=== PATIENT | male | born 1965 | race Caucasian/White ===

== ENCOUNTER 2017-02-13 15:52 | Inpatient (IN) | payer OTHER ==
--- NOTE | ~2017-02-13 | HP ---
History And Physical [id number] [place]. [address] NAME: YONATHAN SPEARS : 63 STATUS : ADM IN [facility]#: [id number] AGE: 51 ADM/REG DATE : 02/13/17 MR#: [id number] REPORT SERV DATE: 02/13/17 DICTATED BY: ESPINOZA MCKEON DATE: 02/13/17 REPORT STATUS : Draft TRANSCRIBED BY: MODMarco DATE: 02/13/17 DATE OF ADMISSION: 02/13/2017 HISTORY OF PRESENT ILLNESS: Mr. Spears is a 51-year-old male patient who is coming in as a direct admit from Dr. Gilbert's office. Dr. Gilbert is a tar processing technician who saw the patient today for infected left foot and the reason that the patient is being admitted is for left foot cellulitis and left forefoot osteomyelitis. The patient was examined at bedside and history was obtained from the patient himself. He tells me that the left foot has been this badly infected for the last one week. It has been swollen, red, and painful and has been discharging foul-smelling pus for the last one week and has been gradually getting worse. He states that he is also getting short winded easily for the last one week also. He feels tired and all he has to do is just take a few steps and he gets out of breath, and this has been progressively getting worse in the last one week. He states that he did have a fever and this has responded to Tylenol. He denies any headaches, blurry vision, trouble swallowing, chest pain, cough, nausea, vomiting, or abdominal pain that is significant. The patient denies any diarrhea. The patient denies any dysuria, but does say that his urine has been really dark and almost tea-colored this morning when he urinated. He has no history of kidney stones. REVIEW OF SYSTEMS: As above. PAST MEDICAL HISTORY: Significant for insulin-requiring diabetes mellitus and GERD. Also positive for on and off cellulitis in the left foot. Also positive for surgery in the left leg for which he has had tibia and fibula fixed. The patient has had fractured left tibia and fibula and has rods in his left leg that he mentions. PAST SURGICAL HISTORY: As above. FAMILY HISTORY: Positive for diabetes in father. SOCIAL HISTORY: The patient states that he does not smoke anymore, but he used to be a smoker before, he has quit several years ago. He denies any significant alcohol use. He denies any illegal drug use. 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 ALLERGIES: NO KNOWN DRUG ALLERGIES AT THIS TIME. HOME MEDICATIONS: 1. He only states that he takes Levemir insulin 20 units once a day and sliding scale History And Physical [address] [address] NAME: YONATHAN SPEARS : 63 STATUS : ADM IN PAT#: [id number] AGE: 51 ADM/REG DATE : 02/13/17 MR#: [id number] REPORT SERV DATE: 02/13/17 DICTATED BY: ESPINOZA MCKEON DATE: 02/13/17 REPORT STATUS : Draft TRANSCRIBED BY: MUSTAPHA DATE: 02/13/17 NovoLog insulin. 2. He also takes tswm-kkn-nlipxid Zantac for GERD p.r.n. PHYSICAL EXAMINATION: GENERAL: The patient is alert, awake, oriented, and seems to be in significant amount of pain in the left foot. Skin and mucous membranes appear slightly dry. He is short of breath even with minimal exertion. He appears somewhat toxic. VITAL SIGNS: Show that his blood pressure is 144/92, temperature mildly elevated at 99 degree Fahrenheit, pulse is 121 per minute, respirations 20 per minute, and oxygen saturation is 96% on room air. NECK: There is no JVD or thyromegaly. FACE: There is no facial droop or facial asymmetry. CARDIOVASCULAR SYSTEM: S1 and S2 appreciated. Sinus rhythm. Tachycardia noted. I could not appreciate any murmurs, rubs, or gallops. RESPIRATORY SYSTEM: Clear lungs, but tachypnea noted. I could not appreciate any rales or rhonchi. The patient seems mildly anxious. ABDOMEN: Soft, nontender, and obese. No definitive tenderness or guarding noted. Bowel sounds are sluggish, but noted. EXTREMITIES: There is bilateral 1+ pedal edema. The left foot is definitely more swollen than the right foot and the affected foot is the left foot compared to the right foot. First of all, the right foot also has stage II DFU or basically a pressure callus on the ball of the big toe on the right foot also. But the left foot is significantly swollen, warm, red all the way up to the ankle. All toes appear pink also. Pedal pulses are diminished. There is foul-smelling discharge between the left fourth and the left fifth toe. The left foot is also very tender to touch. NEUROLOGICAL: Normal. MUSCULOSKELETAL: The patient has had surgery on his left leg with laurent in the left leg for old left tibia and fibula fracture. PSYCHIATRIC: Normal. LABORATORY DATA: The labs I have on this patient show WBC count elevated at 18.9, hemoglobin 13.3, hematocrit 39.1, sedimentation rate is elevated at 95, and platelet count is 487, probably reactive. Comprehensive metabolic profile shows sodium 132, potassium 4.3, BUN 19, and creatinine 1.06. C-reactive protein is extremely elevated at 227 and alkaline phosphatase is 119. Left foot x-ray shows cellulitis with soft tissue gas throughout the second and fifth digits and also probably osteomyelitis involving the head of the fourth metatarsal. Urinalysis also shows abdi-colored urine and rare bacteria. Glucose is also elevated at 281. ASSESSMENT: 1. My assessment in this patient is sepsis secondary to severe cellulitis of the left foot along with osteomyelitis. For this, start the patient immediately on IV Zosyn and History And Physical [address] [address] NAME: YONATHAN SPEARS : 63 STATUS : ADM IN [facility]#: [id number] AGE: 51 ADM/REG DATE : 02/13/17 MR#: [id number] REPORT SERV DATE: 02/13/17 DICTATED BY: ESPINOZA MCKEON DATE: 02/13/17 REPORT STATUS : Draft TRANSCRIBED BY: MODL DATE: 02/13/17 vancomycin after consulting with ID specialist, Dr. Hansen. This will cover gram negatives, anaerobes, and also cover gram positives. 2. Achieve pain control by giving Percocet to the patient on a scheduled basis. 3. Obtain bilateral arterial Dopplers to assess circulation to the legs. The patient definitely needs incision and drainage and debridement and possibly even left forefoot amputation as soon as possible as he is appearing toxic/septic, hence, we will get Podiatry same-day consult. 4. Uncontrolled diabetes mellitus - we will check an A1c and we will start him on sliding scale level 3 insulin. We will start him on 1800-calorie ADA diet. We will keep a hold on the long-acting insulin as of now. 5. We will also obtain blood cultures x2, the wound culture has already been sent off before starting the antibiotics. 6. We will also check a procalcitonin level and lactate level. We will give supportive and symptomatic care to the patient and follow along with ID specialist and tar processing technician. RRA/MODL Espinoza Mckeon M.D. / [id number] CC: Tiny Holloway DAYLE C
--- NOTE | ~2017-02-13 | IDS ---
Interim Discharge Summary [facility] [address] [facility] [place]. [address] NAME: YONATHAN SPEARS : 63 STATUS : ADM IN PAT#: [id number] AGE: 51 ADM/REG DATE : 02/13/17 MR#: [id number] REPORT SERV DATE: 03/23/17 DICTATED BY: HUNTER HERNANDEZ DATE: 03/23/17 REPORT STATUS : Draft TRANSCRIBED BY: MODL DATE: 03/23/17 ADMISSION DATE: 02/13/2017 DISCHARGE DATE: Days of service provided personally by me from 03/17/2017 to 03/23/2017. Please refer also to the history of present illness dictated by Dr. Reena Solorio on 02/13/2017. Please also refer to interim discharge summary dictated by Dr. Manriquez on 03/15/2017. The patient had long hospitalization and I saw the patient only last week starting 03/17/2017 before the patient was seen by hospitalist team, Dr. Solorio and Dr. Manriquez. The patient is still inpatient. CURRENT MEDICAL PROBLEMS: 1. Status post left below-knee amputation day #5 for leg osteomyelitis as well as severe peripheral vascular disease, surgery done by Dr. Juarez. 2. Diabetes mellitus type 2, still not eating enough after surgery with hypoglycemic episodes. Currently, his Levemir is on hold. Before surgery, he required at least 40 units of Levemir, but now because of hypoglycemia, he is only on sliding scale. 3. Acute kidney injury on chronic kidney disease. The patient's creatinine is stable. No dialysis anymore. Nephrology following. 4. Ischemic cardiomyopathy with ejection fraction of 30%, compensated. 5. Status post CABG postoperative day #[address] Surgery, Dr. Salinas. 6. Hypomagnesemia, controlled. 7. Peripheral vascular disease, stable, status post amputation. 8. Postoperative pain, still present. 9. Anticoagulation with Coumadin, INR therapeutic. 10.History of atrial fibrillation, currently in normal sinus rhythm. CONSULTANTS ON THE CASE: 1. Dr. Juarez of Vascular Surgery. 2. Nurse practitioner of Dr. aSlinas. 3. Floyd Dawkins of CT Surgery. 4. Quantitative Analyst Marketing, Dr. Huerta was following. HOSPITAL COURSE: Briefly, for the week that I saw the patient, the patient was doing well. He was very stable. He did not need hemodialysis anymore. Quantitative Analyst Marketing said that his creatinine stays stable. Dr. Huerta put him on Bumex and his creatinine this week was 2.7 and 2.8 and today 2.83. His PermCath is supposed to be discontinued. Because the patient was very stable, it was recommended by web production assistant that Dr. Juarez can go and do second part of the amputation and he had below-knee amputation on his left lower extremity. He is currently postoperatively day #2. He is stable, but because of the pain, he is still using Dilaudid and he is not able to eat much, so his blood sugar was in 80s, and yesterday, it was in 70s, so his long-acting insulin Levemir was discontinued. He is currently on NovoLog sliding scale, but once the patient will start eating, his Levemir Interim Discharge Summary [address] [address] NAME: YONATHAN SPEARS : 63 STATUS : ADM IN [facility]#: [id number] AGE: 51 ADM/REG DATE : 02/13/17 MR#: [id number] REPORT SERV DATE: 03/23/17 DICTATED BY: HUNTER HERNANDEZ DATE: 03/23/17 REPORT STATUS : Draft TRANSCRIBED BY: MUSTAPHA DATE: 03/23/17 should be restarted because before surgery he was on at least 40 units of Levemir. His INR is therapeutic. We expect him to eat better. Anemia, monitor hemoglobin and hematocrit. Also, his white count postsurgically yesterday was 11,000 and today is 12,000, but there is no fever, white count to be monitored. He is currently on Cordarone 200 mg daily, baby aspirin 81 mg daily, Lipitor 40 mg daily, Bumex 2 mg p.o. daily prescribed by coal hiker, PhosLo 667 p.o. with meals, Coreg 6.25 p.o. b.i.d., magnesium oxide 800 b.i.d. for hypomagnesemia. He is on Coumadin, sliding scale, and morphine DIRECTOR OF RADIO SERVICES. My partner will see this patient starting tomorrow morning. Levemir to be restarted once the patient will start eating. MG/MODL Hunter Hernandez M.D. / [id number] CC: Tiny Sapp DAYLE C Daniel Fisher Jr., M.D. Wilson M. Clements, MD Vinay Deep Madan, MD
--- NOTE | ~2017-02-13 | CN ---
Consultation Report [facility] [address] [place]. [address] NAME: YONATHAN SPEARS : 63 STATUS : ADM IN [facility]#: [id number] AGE: 51 ADM/REG DATE : 02/13/17 MR#: [id number] REPORT SERV DATE: 02/15/17 DICTATED BY: MAINOR BOLAND DATE: 02/15/17 REPORT STATUS : Draft TRANSCRIBED BY: MODL DATE: 02/15/17 NEPHROLOGY CONSULTATION DATE OF CONSULTATION: 02/15/2017 INDICATION FOR CONSULTATION: Acute kidney injury. HISTORY OF PRESENT ILLNESS: Mr. Spears is a 51-year-old man who is seen for acute kidney injury following admission for left foot osteomyelitis. The foot infection was quite severe and he has required fourth and fifth digit amputation. In addition, he developed shortness of breath with elevated troponin and elevated BNP. He was subsequently initiated on diuretics and lisinopril. He has had no hypotension. His serum creatinine deric from 1.06 on 02/13/2017 to 1.27 on 02/14/2017 to 2.53 on 02/15/2017. He denies any voiding problems. PAST MEDICAL HISTORY: Remote left tibial and fibula fracture with rodding, type 2 diabetes mellitus, gastroesophageal reflux disease. SOCIAL HISTORY: The patient is . No children. Works as a construction executive. Remote tobacco use with no cigarette smoking in the last year and a half and prior 20 pack year smoking history. Currently was using snuff. No significant alcohol and no illicit drug use. FAMILY HISTORY: Father with history of hypertension, heart disease, diabetes with aspiration pneumonia and required dialysis just prior to his . Mother has underlying diabetes and breast cancer. HOME MEDICATIONS: P.r.n. Zantac and Levemir insulin. ALLERGIES: NONE KNOWN. REVIEW OF SYSTEMS: HEENT: No change in visual acuity. No epistaxis. No otic infection. No pharyngitis. PULMONARY: Notes some recent shortness of breath. No cough. No hemoptysis. CARDIAC: Denies chest pain, has noted lower extremity edema primarily in left lower extremity. GI: No nausea, vomiting, or diarrhea. : No gross hematuria, dysuria, pyuria. Denies urinary hesitation. MUSCULOSKELETAL: Occasional left lower extremity pain. INTEGUMENT: Some redness left lower extremity. No rash. No skin lesions. NEUROLOGIC: No lateralizing weakness or seizure activity. Remainder of 12-point review of systems is negative. PHYSICAL EXAMINATION: Consultation Report [address] [place]. [address] NAME: YONATHAN SPEARS : 63 STATUS : ADM IN PAT#: [id number] AGE: 51 ADM/REG DATE : 02/13/17 MR#: [id number] REPORT SERV DATE: 02/15/17 DICTATED BY: MAINOR BOLAND DATE: 02/15/17 REPORT STATUS : Draft TRANSCRIBED BY: MUSTAPHA DATE: 02/15/17 GENERAL: Obese male, pleasant, appropriately responsive. VITAL SIGNS: Blood pressure 94/55, temp 99.2 with T-max of 100.7, pulse 88, respiratory rate 16. HEENT: Eyes, no scleral icterus. Pupils equal and reactive to light. Extraocular movement intact. Nares patent. No lesions. Throat, no injection. Mucous membranes moist. NECK: No thyromegaly, masses, bruits. CHEST/LUNGS: Few late crackles posteriorly. No wheezes. No rhonchi. No dullness. CARDIAC: Regular rate and rhythm. No murmur, gallop, or rub. ABDOMEN: Obese. Normoactive bowel sounds. Nontender. No hepatosplenomegaly. /RECTAL: Not performed. EXTREMITIES: Erythema left lower extremity. Trace edema. Left foot is wrapped with obvious amputation fourth and fifth digit from left foot. NEUROLOGIC: Cranial nerves intact. No lateralizing weakness. IMPRESSION: 1. Acute kidney injury likely secondary to sepsis/infection. Possibly complicated by prerenal state. Doubt significant contribution from minimal dose of lisinopril. 2. Left foot osteomyelitis. 3. Status post amputation fourth and fifth digit, left foot. 4. Peripheral vascular disease. 5. Remote left tibial-fibula fracture with rodding. 6. Type 2 diabetes mellitus. 7. Gastroesophageal reflux disease. 8. Acute systolic congestive heart failure with ejection fraction of 30%. 9. Elevated troponin possibly non-ST elevation myocardial infarction versus demand ischemia. PLAN: 1. Discontinue lisinopril. 2. Discontinue Aldactone. 3. Renal Doppler and ultrasound. 4. Lab. 5. Adjust diuretics. RAUL/DAMONL Mainor Boland M.D. / [id number] CC: Reena Solorio M.D. Consultation Report [address] [facility] [address] NAME: YONATHAN SPEARS : 63 STATUS : ADM IN PAT#: [id number] AGE: 51 ADM/REG DATE : 02/13/17 MR#: [id number] REPORT SERV DATE: 02/15/17 DICTATED BY: MAINOR BOLAND DATE: 02/15/17 REPORT STATUS : Draft TRANSCRIBED BY: MODL DATE: 02/15/17 Bill Short
--- NOTE | ~2017-02-13 | CN ---
Consultation Report [facility] [address] [facility] [place]. [address] NAME: SAHIL SPEARS : 63 STATUS : ADM IN [facility]#: [id number] AGE: 51 ADM/REG DATE : 02/13/17 MR#: [id number] REPORT SERV DATE: 02/14/17 DICTATED BY: DANNA ROBLEDO JR. DATE: 02/14/17 REPORT STATUS : Draft TRANSCRIBED BY: MODL DATE: 02/14/17 CONSULT DATE OF CONSULTATION: 02/14/2017 INDICATIONS FOR REFERRAL: Abnormal troponin and EKG. HISTORY OF PRESENT ILLNESS: Mr. Sahil Spears is a 51-year-old longstanding diabetic who suffers from obesity and gastroesophageal reflux disease. He was admitted from the environmental adviser for infected left foot and osteomyelitis and we were consulted with a troponin abnormality of 0.09. The patient went to the OR last night for amputation of the 4th and 5th digits and debridement. This morning, he has developed tachypnea, tachycardia with shortness of breath but no chest discomfort. He received breathing treatments and states he feels better. Echocardiography this morning reveals new diagnosis of severe systolic heart failure with an ejection fraction of 30%. Global hypokinesis with apical akinesis but no apical thrombus noted. PAST MEDICAL HISTORY: Includes insulin-requiring diabetes, obesity, gastroesophageal reflux disease, left lower leg orthopedic surgery. He has reactive airway disease. He denied hypertension, hyperlipidemia, or history of renal insufficiency. He denies prior TIA or stroke. ALLERGIES: DENIED. SOCIAL HISTORY: He quit smoking 5 years ago. He does not drink or use recreational drugs. FAMILY HISTORY: Negative for premature vascular events. REVIEW OF SYSTEMS: Include malaise, fatigue, and shortness of breath. He denies bleeding diathesis. He has had subjective fevers. Remainder as in HPI or negative. PHYSICAL EXAMINATION: VITAL SIGNS: Blood pressure is 154/89, heart rate 127, and respirations 28 to 30. GENERAL: An obese, tachypneic, middle-aged male. HEENT: Anicteric, no scleral injection, no oral lesions. NECK: Full secondary to obesity. LUNGS: A few basilar rales. CARDIAC: Regular rate and rhythm, tachycardic. ABDOMEN: Soft, nontender. Normoactive bowel sounds, no hepatosplenomegaly. EXTREMITIES: A 1 to 2+ edema with venous insufficiency changes with left foot erythema and his dressing in place. SKIN: No visible rashes. NEURO/PSY: Normal affect, alert and oriented x 3. Consultation Report [address] [place]. [address] NAME: SAHIL SPEARS : 63 STATUS : ADM IN PAT#: [id number] AGE: 51 ADM/REG DATE : 02/13/17 MR#: [id number] REPORT SERV DATE: 02/14/17 DICTATED BY: DANNA ROBLEDO JR. DATE: 02/14/17 REPORT STATUS : Draft TRANSCRIBED BY: MODMarco DATE: 02/14/17 EKG: From 02/13 reveals sinus tachycardia with a heart rate of 110, late RS transition, cannot rule out anterolateral infarct old, ST and T-wave abnormality, consider ischemic change. MEDICAL DECISION MAKIN. Acute systolic heart failure. The patient has signs and symptoms of both possible sepsis and/or systolic heart failure exacerbation. We will begin diuresis, carvedilol, lisinopril, and spironolactone. We will watch renal function closely. We will add aspirin to his daily regimen. We will continue to rule out for myocardial infarction with serial troponins and EKGs. We will increase his heparin to 5000 units subcu t.i.d. with consideration towards a weight based protocol pending clinical course and surgical safety. He will eventually need coronary angiography to elucidate the etiology of a systolic heart failure. 2. ID/sepsis. The patient is being transferred to the IMCU versus MICU for further evaluation and management. He will need close volume assessment. 3. Lipid status. We will initiate intensive statin therapy. VSM/MODL Danna Robledo Jr., M.D. / [id number] CC: Tiny Holloway
--- NOTE | ~2017-02-13 | EGD ---
EGD REPORT [facility] [address] [address] NAME: YONATHAN SPEARS : 63 STATUS : ADM IN PAT#: [id number] AGE: 51 ADM/REG DATE : 02/13/17 MR#: [id number] REPORT SERV DATE: 03/08/17 DICTATED BY: JOSE ALEJANDRO HARRIS III DATE: 03/08/17 REPORT STATUS : Draft TRANSCRIBED BY: [facility] DATE: 03/08/17 Endoscopy Center Patient Name: Yonathan Spears Date of : 1965 Attending MD: JOSE ALEJANDRO HARRIS III, MD Procedure Date No Time: 03/08/2017 Procedure: Upper GI endoscopy Indications: Hematemesis Medicines: General Anesthesia Complications: No immediate complications. Procedure: Pre-Anesthesia Assessment: - ASA Grade Assessment: IV - A patient with severe systemic disease that is a constant threat to life. After obtaining informed consent, the endoscope was passed under direct vision. Throughout the procedure, the patient's blood pressure, pulse, and oxygen saturations were monitored continuously. The GIF [id number] was introduced through the mouth, and advanced to the third part of duodenum. The upper GI endoscopy was accomplished with ease. The patient tolerated the procedure well. Findings: LA Grade A (one or more mucosal breaks less than 5 mm, not extending between tops of 2 mucosal folds) esophagitis with no bleeding was found at the gastroesophageal junction. A small hiatus hernia was present. The examined duodenum was normal. There was some fresh bright red blood in the hypopharynx unrelated to the GI tract. Impression: - LA Grade A reflux esophagitis. - Hiatus hernia. - Normal examined duodenum. Procedure Code(s): --- Professional --- 59145, Esophagogastroduodenoscopy, flexible, transoral; diagnostic, including collection of specimen(s) by brushing or washing, when performed (separate procedure) Diagnosis Code(s): --- Professional --- K21.0, Gastro-esophageal reflux disease with esophagitis K44.9, Diaphragmatic hernia without obstruction or gangrene K92.0, Hematemesis EGD REPORT [facility] [address] [address] NAME: YONATHAN SPEARS : 63 STATUS : ADM IN [facility]#: [id number] AGE: 51 ADM/REG DATE : 02/13/17 MR#: [id number] REPORT SERV DATE: 03/08/17 DICTATED BY: JOSE ALEJANDRO HARRIS III DATE: 03/08/17 REPORT STATUS : Draft TRANSCRIBED BY: [facility] DATE: 03/08/17 CPT copyright 2013 [employer]. All rights reserved. The codes documented in this report are preliminary and upon environmental protection forester review may be revised to meet current compliance requirements. JOSE ALEJANDRO HARRIS III, MD 03/08/2017 12:20 PM This report has been signed electronically. Number of Addenda: 0 Note Initiated On: 03/08/2017 11:33 AM Scope Withdrawal Time 0 hours 0 minutes 0 seconds [address] [address]
--- NOTE | ~2017-02-13 | IDS ---
Interim Discharge Summary [facility] [address] [place]. [address] NAME: YONATHAN SPAERS : 63 STATUS : ADM IN [facility]#: [id number] AGE: 51 ADM/REG DATE : 02/13/17 MR#: [id number] REPORT SERV DATE: 03/15/17 DICTATED BY: TREVOR MOSLEY DATE: 03/15/17 REPORT STATUS : Draft TRANSCRIBED BY: MODL DATE: 03/15/17 ADMISSION DATE: 02/13/2017 DISCHARGE DATE: PRIMARY CARE PHYSICIAN: Dr. Bill Short. CONSULTING PHYSICIANS: Dr. Salinas for ACTVS, Dr. Juarez for Vascular Surgery, Dr. Velazquez for Nephrology, and Dr. Lynch for Cardiology. INTERIM DIAGNOSES: 1. Coronary artery disease, status post CABG x4. 2. Ischemic cardiomyopathy with ejection fraction of 30%. 3. Atrial fibrillation, status post cardioversion. 4. Peripheral arterial disease. 5. Status post arrest. 6. Status post sepsis. 7. Status post left ankle amputation for osteomyelitis. 8. Acute kidney injury on chronic kidney disease, heading towards end-stage renal disease. 9. Stage II decubitus ulcers. 10.Diabetes. 11.Malnutrition. 12.Anemia. 13.Anxiety. DIAGNOSTIC EXAMS: LELAND showing severely decreased left ventricular ejection fraction to 20%, mild MR. No LA/SHALONDA thrombus. Successful cardioversion. Latest chest x-ray showing stable cardiomegaly with bilateral pleural effusions. HOSPITAL COURSE: Please refer to the H and P done by Dr. Solorio dated 02/13/2017. Her interim discharge summary done on 02/15/2017. The interim discharge done by Rochelle Goodson and Dr. Villar on 03/08/2017 since I took care of this patient. The patient underwent a CABG x4 and went to the intensive care unit. The patient had a successful operation, however went to atrial fibrillation. The patient was tried on amiodarone drip, however he did not convert and finally, they had to cardiovert him and that was successful. The patient was then transferred out of the intensive care unit and now is in [address] [place] [address]. Meanwhile, his kidney function continued to remain bad and they were thinking that this might be an end-stage already. He was tried on a Bumex drip, however that did not help. The patient continued hemodialysis then. The patient seems to be improving. He would need physical therapy to strengthen him up. I suspect that he would need inpatient rehab after his discharge here. The patient will be continued to be monitored in telemetry. Partner of [facility] [place] will be following up the patient starting Thursday. HIREN/MUSTAPHA Interim Discharge Summary [address] [facility] [place] [address] NAME: YONATHAN SPEARS : 63 STATUS : ADM IN PAT#: [id number] AGE: 51 ADM/REG DATE : 02/13/17 MR#: [id number] REPORT SERV DATE: 03/15/17 DICTATED BY: TREVOR MOSLEY DATE: 03/15/17 REPORT STATUS : Draft TRANSCRIBED BY: MUSTAPHA DATE: 03/15/17 Trevor Mosley M.D. / [id number] CC: Trevor Mosley M.D.
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
--- NOTE | ~2017-02-13 | DS ---
Discharge Summary [place] [address] [place]. [address] NAME: YONATHAN SPEARS : 63 STATUS : DIS IN PAT#: [id number] AGE: 51 ADM/REG DATE : 02/13/17 MR#: [id number] REPORT SERV DATE: 04/09/17 DICTATED BY: LUCA VILLAR DATE: 04/07/17 REPORT STATUS : Draft TRANSCRIBED BY: MODL DATE: 04/07/17 ADMISSION DATE: 02/13/2017 DISCHARGE DATE: 04/07/2017 REASON FOR ADMISSION: Infected right foot. CONSULT: Dr. Hansen for Infectious Disease, Dr. Velazquez for Renal, nurse practitioner Floyd Dawkins for CT Surgery, Dr. Carrillo for GI, Dr. Thompson for Psychiatry. PROCEDURES DONE: 1. 02/20, Dr. De La Torre, procedure diagnosis, acute kidney injury; postop diagnosis, acute kidney injury. Procedure done is Vas-Cath placement. 2. 02/23/2017, preop diagnosis, wet gangrene left foot; postop diagnosis, wet gangrene left foot. Operation, left ankle guillotine amputation. 3. 03/06/2017, operative report, preop diagnosis, acute on chronic renal failure; postop diagnosis, acute on chronic renal failure. Operative report, insertion of right PermCath catheter and removal of Vas-Cath. 4. 03/10/2017, operative report by Dr. Salinas; preop diagnosis, [id number] CA with cardiac arrest; sepsis, resolved; coronary artery disease; 3-vessel disease; peripheral vascular disease; left below-knee amputation, open; diabetes type 2; tobacco abuse; hypertension; hyperlipidemia; anemia; anemia of chronic disease; end-stage renal disease. Operative report, median sternotomy. Extracorporeal circulation. Urgent CABG grafting x4 with left internal mammary, left anterior descending, reverse greater saphenous vein graft to D1, reverse greater saphenous vein graft to obtuse marginal 1, reverse greater saphenous vein graft to posterior descending artery. Transesophageal echocardiogram. Endoscopic vein harvest of the right and left lobes. Rigid external fixation of sternum with sternal plating system with Biomet SternaLock Matt. Prevena dressing placement. Right femoral arterial line placement. Resection of pericardial cyst. 5. 03/13/2017, reason for procedure is atrial fibrillation. Procedures done is LELAND. Essential LELAND conversion. Severe biventricular dysfunction. 6. 03/22/2017, operative report by Dr. Juarez; preop diagnosis, left ankle guillotine amputation for wet gangrene of left foot; postop diagnosis, left ankle guillotine amputation for wet gangrene of left foot. Operation, left formal below-knee amputation. 7. Please refer to interim discharges on 02/[address] Solorio. 8. Interim discharge on 03/08/2017 by nurse practitioner, Rochelle Goodson. 9. Interim discharge 03/15/[address] Manriquez. 10.03/22/2017, interim discharge by Dr. Mendosa. 11.03/30/[address] Augustine. HISTORY OF HOSPITAL STAY: A 51-year-old white male, past medical history for diabetes type 2, GERD, presenting with an infected left foot. The patient was admitted for further evaluation and treatment of his left foot. There was a concern of the patient having a left forefoot osteomyelitis. Vascular was consulted regarding the patient's left foot. Initially, the patient underwent a left foot guillotine, which evolved into a formal left Discharge Summary [address] [address] NAME: YONATHAN SPEARS : 63 STATUS : DIS IN PAT#: [id number] AGE: 51 ADM/REG DATE : 02/13/17 MR#: [id number] REPORT SERV DATE: 04/09/17 DICTATED BY: LUCA VILLAR DATE: 04/07/17 REPORT STATUS : Draft TRANSCRIBED BY: MODL DATE: 04/07/17 below-knee amputation. More importantly, the patient had a cardiac arrest during the hospitalist's time, and the patient underwent a code which subsequently was brought back. More importantly, the patient has suffered a [id number] CA, which required a coronary artery bypass. After the bypass, the patient was put in the unit and subsequently was able to be put to the floor, however, during this time, the patient had an extensive renal disease, which required dialysis. The patient had to undergo insertion of a right PermCath to support his end-stage renal disease, which eventually resolved. Furthermore, the patient also underwent cardioversion. The patient had to take amiodarone, but currently he is rate controlled. I took over the patient's care on 03/31/2017 until 04/07/2017. DISPOSITION: The patient is feeling fine, no complaint. ACTIVITY: As tolerated. DIET: Diabetic. INSTRUCTIONS UPON DISCHARGE: 1. The patient to follow up with CT Surgery within two weeks' time. 2. The patient to follow up with Cardiology within two to three weeks' time. 3. The patient to follow up with Renal within two to three weeks' time. 4. The patient to follow up with primary care physician within one to two weeks' time. MEDICATION UPON DISCHARGE: 1. Vitamin C 1000 mg p.o. b.i.d. 2. Aspirin 81 mg daily. 3. Lipitor 40 mg p.o. at bedtime. 4. Amiodarone 200 mg p.o. daily. 5. Negra cream, apply to buttocks b.i.d. 6. Bumex 2 mg p.o. daily. 7. PhosLo 667 mg p.o. with meals. 8. Coreg 6.25 mg p.o. b.i.d. 9. GenTeal as directed. 10.Insulin sliding scale. We will check blood sugar before meals and at bedtime. 11.Magnesium oxide 800 mg p.o. b.i.d. 12.Multivitamin one tab daily. 13.Nystatin powder applied b.i.d. 14.Protonix 40 mg p.o. b.i.d. 15.Senna two tabs p.o. b.i.d. 16.Coumadin sliding scale. 17.Zinc 220 mg p.o. daily. 18.Tylenol No. 3, 650 p.o. q.4 hours p.r.n. 19.Colace 100 mg p.o. daily p.r.n. 20.Hydrocortisone cream topical b.i.d. 21.Lactulose 30 mL p.o. daily p.r.n. 22.Melatonin 6 mg p.o. at bedtime p.r.n. Discharge Summary [address] [address] NAME: YONATHAN SPEARS : 63 STATUS : DIS IN PAT#: [id number] AGE: 51 ADM/REG DATE : 02/13/17 MR#: [id number] REPORT SERV DATE: 04/09/17 DICTATED BY: LUCA VILLAR DATE: 04/07/17 REPORT STATUS : Draft TRANSCRIBED BY: MODL DATE: 04/07/17 23.Lovenox 120 mg subcu b.i.d. PRIMARY DIAGNOSES UPON DISCHARGE: 1. Left foot cellulitis/forefoot osteomyelitis, status post left BKA. 2. Left BKA. 3. Peripheral vascular disease. 4. Diabetes type 2. 5. Acute kidney injury on chronic kidney disease, status post hemodialysis. 6. Ischemic cardiomyopathy, EF of 30%. 7. Coronary artery disease, status post CABG, four vessels. 8. Diabetes type 2. 9. Hypertension. 10.Hyperlipidemia. 11.Atrial fibrillation, status post cardioversion. FBJ/MUSTAPHA Luca Villar MD / [id number] CC: MD SILVIA Ribeiro DAYLE C
--- NOTE | ~2017-02-13 | IDS ---
Interim Discharge Summary [facility] [address] [place]. [address] NAME: YONATHAN SPEARS : 63 STATUS : ADM IN [facility]#: [id number] AGE: 51 ADM/REG DATE : 02/13/17 MR#: [id number] REPORT SERV DATE: 03/08/17 DICTATED BY: DATE: REPORT STATUS : Draft TRANSCRIBED BY: MODL DATE: 03/08/17 ADMISSION DATE: 02/13/2017 DISCHARGE DATE: CURRENT INTERIM DIAGNOSES: List includes: 1. Sepsis, which has been resolved. 2. Coronary artery disease. 3. Anemia. 4. Diabetes mellitus type 2. 5. Acute kidney injury on chronic kidney disease. 6. Prolonged bedrest. 7. Loose cough. 8. Nosebleed. 9. Hematemesis. 10.Nausea. 11.Status post cardiac arrest/pulseless electrical activity. 12.Anxiety. 13.Heart failure with ejection fraction of 30%. 14.Pressure ulcer, stage II. 15.Malnutrition due to renal and cardiac. HISTORY OF PRESENT ILLNESS: This is a pleasant, 51-year-old male, who came as a direct admit from Dr. Gilbert's office who is a histologist for left foot cellulitis and left forefoot osteomyelitis. Please see admission H and P by Dr. Reena Solorio on 02/13/2017. The patient had incision and drainage, debridement, and amputation of the left 4th and 5th toe per Dr. Ruiz. Please see interim discharge summary by Dr. Reena Solorio. The patient has been treated with antibiotics per Infectious Diseases and sepsis was thought to be resolved. I have been taking care of this patient 03/03/2017 and during this time, the patient was on hemodialysis with a right groin Vas-Cath and being seen by Renal. The patient is status post heart catheterization on 03/05/2017 with current hemodialysis. The patient's antibiotics are finished from his sepsis and his white count has remained stable. The patient did have cardiac arrest with an hour and a half critical care time events for PEA prior to my seeing the patient. The patient was going to have a left patvy-ijs-usbl amputation, but after having his heart catheterization, it was discovered that he has five- vessel disease, four of which can be bypassed, so it was elected to prioritize that and the patient is to have bypass surgery on 03/09/2017, by Dr. Salinas. The patient continues on dialysis and has been seen by Dr. Velazquez and Dr. Katz. During this time, the patient has exhibited anxiety and depression due to the fact his father several months ago after having surgery and his mother is in the middle of getting chemotherapy for breast cancer in addition to his present illness. The patient is also starting to develop a stage II pressure ulcer on his sacrum and Wound Care has been consulted regarding this. The patient has diabetes mellitus with a hemoglobin A1c of 11.3, has been well controlled during Interim Discharge Summary [address] [address] NAME: YONATHAN SPEARS : 63 STATUS : ADM IN [facility]#: [id number] AGE: 51 ADM/REG DATE : 02/13/17 MR#: [id number] REPORT SERV DATE: 03/08/17 DICTATED BY: DATE: REPORT STATUS : Draft TRANSCRIBED BY: MODL DATE: 03/08/17 his stay. The patient has not been eating or taking supplements and is exhibiting temporal wasting. The patient off and on again has a cough, has been bed bound until placement of Vas-Cath on 03/06/2017, by Dr. Juarez, through which he has now been receiving his hemodialysis. The patient has continued to exhibit anemia with his hemoglobin fluctuating between 8.3 and 8.6 and currently today, it is 7.7. Renal has put in an order for the patient to be transfused in hemodialysis tomorrow if his hemoglobin falls below 7.5. Today, the patient was exhibiting a small amount of bright red hematemesis and a spontaneous nosebleed. The patient denies that he has been having any postnasal drainage and that he has been having nausea off and on for the last few days and has had more severe nausea last night. We have consulted GI to see the patient regarding his hematemesis. His current PT/INR was 1.5, PTT is 35.7. CURRENT LABS: Sodium is 142, potassium is 4.4, chloride is 108, bicarb is 28.9, BUN is 22, creatinine is 3.44, GFR is 22, glucose is 162, calcium is 8.5, magnesium is 2.0, phosphorus 3.2, WBCs 9.0, hemoglobin 7.7, hematocrit 24.2, platelets 233. An INR of 1.5. CONSULTATIONS DURING THIS STAY: Have been Renal, Cardiology, Cardiovascular Surgery, Vascular, Infectious Diseases, Podiatry, and now GI. The patient's discharge status at this time is questionable. SLC/MODL Rochelle Goodson NP / [id number] CC: MD SILVIA Ribeiro DAYLE C
--- NOTE | ~2017-02-13 | CN ---
Consultation Report [facility] [address] [facility] [place]. [address] NAME: YONATHAN SPEARS : 63 STATUS : ADM IN [facility]#: [id number] AGE: 51 ADM/REG DATE : 02/13/17 MR#: [id number] REPORT SERV DATE: 02/13/17 DICTATED BY: NEO GARCIA DATE: 02/13/17 REPORT STATUS : Draft TRANSCRIBED BY: MODL DATE: 02/13/17 INFECTIOUS DISEASE CONSULTATION DATE OF CONSULTATION: REASON FOR CONSULT: Left foot infection. HISTORY OF PRESENT ILLNESS: A 51 years old white male with history of diabetes who was sent as a direct admit from Podiatry office for left foot infection. He has had a callus on the left foot plantar aspect. At some point, he had a thin cut on it. It became infected. He followed with Dr. Short in [place] since the end of November. He received cephalexin and Bactrim since then. Over the last week, he developed a left foot swelling, redness, and warmth. He might have had some subjective fever. He has not felt good. He had some shortness of breath. He was referred to Podiatry and sent as a direct admit. He had past medical history of left tibia and fibula ORIF. SOCIAL HISTORY: He does not smoke. He is employed. FAMILY HISTORY: Father had diabetes. MEDICATIONS ON ADMISSION: Only insulin. ALLERGIES: NONE. PHYSICAL EXAMINATION: GENERAL: He is alert, awake. LUNGS: Seem clear to auscultation, maybe a little decreased in the right base. HEART: Regular rhythm. ABDOMEN: Soft, obese, compressible, not tender to palpation. EXTREMITIES: Right foot with a callus at the 1st metatarsal phalangeal joint area. Good right dorsalis pedis pulse, strong. Left foot is all swollen with necrotic skin between toes and bloody drainage between the 4th and 5th toes. He is able to move the ankle. There is a callus with an ulceration on the anterior aspect of the left ankle. Due to edema, I could not appreciate the left foot pulses. LAB WORK: CO2 of 21, creatinine 1.0, BUN 19. ALT/AST within normal limits. Alkaline phosphatase 119. CRP 227. WBC 18, hemoglobin 13, platelets 487, sedimentation rate 95. Urinalysis with glucosuria, ketones in the urine, proteins in the urine and urobilinogen, positive casts, rare bacteria, positive crystals. Foot x-ray suggestive of left 4th metatarsal head osteomyelitis. There is gas and soft tissue involving most of the digits of the left foot. ASSESSMENT AND PLAN: 1. Left foot abscess with extensive edema. X-ray suggestive of the 4th metatarsal head Consultation Report [place] [id number] [place]. [address] NAME: YONATHAN SPEARS : 63 STATUS : ADM IN PAT#: [id number] AGE: 51 ADM/REG DATE : 02/13/17 MR#: [id number] REPORT SERV DATE: 02/13/17 DICTATED BY: NEO GARCIA DATE: 02/13/17 REPORT STATUS : Draft TRANSCRIBED BY: MODL DATE: 02/13/17 osteomyelitis and soft tissue gas throughout the digits. 2. Diabetes. 3. History of ORIF of the left tibia and fibula. I suggest surgical debridement as soon as feasible. I placed a call to Podiatry, Dr. Ruiz. He has a strong pulse on the right dorsalis pedis, so hopefully the same is the case on the left side. Although, I cannot palpate the pulses due to edema now. I would not delay surgery for doing an MRI and arterial ultrasound because of the extent of this disease. I discussed with Dr. Solorio and the patient. BRENDA/MUSTAPHA Neo Garcia M.D. / [id number] CC: Tiny Holloway Dayle C
--- NOTE | ~2017-02-13 | IDS ---
Interim Discharge Summary [facility] [address] [place]. [address] NAME: YONATHAN SPEARS : 63 STATUS : ADM IN PAT#: [id number] AGE: 51 ADM/REG DATE : 02/13/17 MR#: [id number] REPORT SERV DATE: 02/15/17 DICTATED BY: ESPINOZA MCKEON DATE: 02/15/17 REPORT STATUS : Draft TRANSCRIBED BY: MODL DATE: 02/15/17 ADMISSION DATE: 02/13/2017 DISCHARGE DATE: The date the patient has been moved to [facility] is 02/15/2017. DIAGNOSES: So far on this gentleman. 1. Left foot cellulitis and left forefoot osteomyelitis, status post incision, drainage, debridement, and also amputation of the left fourth and fifth toe on the left foot. Acting Professor Dr. Ruiz is following this patient. 2. Peripheral vascular disease of the left leg with moderate occlusion of the SFA on the left side, I have consulted vascular surgery for this. 3. Cardiomyopathy, likely ischemic, but could also be dilated diabetic cardiomyopathy, but his ejection fraction is depressed at only 30%. Academic Specialist Dr. Robledo is consulting. At this time, the patient may need cardiac catheterization, but given his renal function status this may have to be postponed. 4. Acute kidney injury with a creatinine of 2.4, I have consulted Renal/Nephrology, because his volume status is extremely precarious. He does have acute kidney injury, and probably chronic kidney disease from uncontrolled diabetes, but at the same time, he has cardiomyopathy and acute systolic heart failure from that too. 5. Acute kidney injury and chronic kidney disease. 6. Uncontrolled diabetes with a hemoglobin A1c that came back at 11.3. 7. Wound culture from the left foot is now growing Klebsiella for which ID is consulting, however, the wound culture has come back with Klebsiella on 02/15/2017, for which reason I am changing his antibiotics from IV Zosyn to IV Ancef. So, the patient will be on IV Ancef and IV vancomycin and I will let ID handle this from 02/16/2017 onwards. BRIEF HOSPITAL COURSE: Please see my history and physical exam that was dictated just two days ago on 02/13/2017. Essentially, this is a gentleman, who was admitted with left foot cellulitis and osteomyelitis, and required almost overnight amputation of the left fourth and fifth toe. When he came back from the OR and came back from arterial Doppler, the patient was extremely short of breath and was very close to being even intubated. However, we avoided this by diuresing him and stopping his IV fluids and getting an echocardiogram stat. Echocardiogram that was obtained stat showed an ejection fraction of only 30%. Dr. Robledo, volunteer services manager had already been consulted also for an elevated troponin I. So, at this time, the patient could be having an acute coronary syndrome, but he is free of chest pain. Other than dyspnea with mild exertion, the patient has no chest pain. The patient will eventually need coronary angiography, but given his kidney function, this also may have to be postponed for the next few days. His creatinine showed chronic kidney disease with a baseline creatinine of about 1.3 to 1.4, but then after the surgery it has jumped up to 2.4, suggesting acute kidney injury. However, his fluid balance is precarious, because it is hard to give him IV fluids as he went into respiratory distress when he was on even 75 mL of fluids. So, at this time, I have started him on 50 mL of Ringer lactate and with ongoing diuresis, and also consulted renal for handling his fluids-volume status. CONSULTANTS: Consultants on this case so far include: Interim Discharge Summary [address] [address] NAME: YONATHAN SPEARS : 63 STATUS : ADM IN [facility]#: [id number] AGE: 51 ADM/REG DATE : 02/13/17 MR#: [id number] REPORT SERV DATE: 02/15/17 DICTATED BY: ESPINOZA MCKEON DATE: 02/15/17 REPORT STATUS : Draft TRANSCRIBED BY: MODL DATE: 02/15/17 1. Infectious Disease. 2. Cardiology for cardiomyopathy. 3. Acting Professor, Dr. Ruiz. 4. New consults include Vascular Surgery for moderate occlusion of the SFA on the left leg, and also nephrology consult for acute kidney injury on chronic kidney disease, and for handling his volume status. This is my discharge summary so far, or interim discharge summary, but call me if you have any questions. BRITNEY/DAMONL Espinoza Mckeon M.D. / [id number] CC: Tniy Holloway DAYLE C
--- NOTE | ~2017-02-13 | OP ---
Record Of Operation [facility] [address] [place]. [address] NAME: YONATHAN SPEARS : 63 STATUS : ADM IN PAT#: [id number] AGE: 51 ADM/REG DATE : 02/13/17 MR#: [id number] REPORT SERV DATE: 03/06/17 DICTATED BY: SUJIT JUAREZ JR. DATE: 03/06/17 REPORT STATUS : Draft TRANSCRIBED BY: MODL DATE: 03/06/17 DATE OF PROCEDURE: 03/06/2017 PREOPERATIVE DIAGNOSIS: Acute on chronic renal failure. POSTOPERATIVE DIAGNOSIS: Acute on chronic renal failure. OPERATION: Insertion of right PermCath catheter (internal jugular vein), removal of Vas- Cath. SURGEON: Sujit Juarez M.D. HISTORY: This is a 51-year-old white male who presented with an infected left foot, developed sepsis, had an NV with a code, ultimately, he had his left foot amputated, and went into renal failure. He is being dialyzed with a Vas-Cath. He is due to have heart surgery in three days. I was asked to put in a PermCath catheter. DESCRIPTION OF PROCEDURE: The patient was positioned on the operating room table. Both sides of the neck were prepped and draped in the usual sterile manner. A long needle was used to easily find the right internal jugular vein. A PermCath catheter was brought through a stab wound below the right clavicle, up into the neck incision, down into a tear- away introducer. The fluoro machine was used to confirm good position with no kinking. The catheter was irrigated with heparinized saline and sutured into place. The Vas-Cath sutures were cut and the Vas-Cath was pulled. The patient tolerated the procedure well, taken back to recovery room in serious condition. There were no intraoperative complications. ESTIMATED BLOOD LOSS: Negligible. DF/MODL Sujit Juarez Jr., M.D. / [id number] CC: MD SILVIA Ribeiro DAYLE C
--- NOTE | ~2017-02-13 | OP ---
Record Of Operation [facility] [address] [place]. [address] NAME: YONATHAN SPEARS : 63 STATUS : ADM IN PAT#: [id number] AGE: 51 ADM/REG DATE : 02/13/17 MR#: [id number] REPORT SERV DATE: 02/24/17 DICTATED BY: SUJIT JUAREZ JR. DATE: 02/23/17 REPORT STATUS : Draft TRANSCRIBED BY: MODL DATE: 02/23/17 DATE OF PROCEDURE: 02/23/2017 PREOPERATIVE DIAGNOSIS: Wet gangrene of left foot. POSTOPERATIVE DIAGNOSIS: Wet gangrene of left foot. OPERATION: Left ankle guillotine amputation. SURGEON: Sujit Juarez M.D. HISTORY: This is a 51-year-old white male who presented to the hospital on 02/13/2017 with necrosis and infection involving his left foot. He initially started off with a two-toe lateral amputation of the left foot by Podiatry. He ultimately had sepsis, an elevated creatinine to 3.5, congestive heart failure symptoms, and the foot progressed onto worse gangrene. He was brought to the operating room three days ago in hopes that I could do a below-knee amputation. Before being placed in the operating room itself, he underwent a cardiac arrest and had a near- experience. He ultimately was brought back to the operating room today thinking his left foot was septic and this was driving his white blood cell count of 26,000. The family clearly understood the high-risk nature of this procedure. PROCEDURE IN DETAIL: The patient was placed on the operating room table. His endotracheal tube was connected to a ventilator. The left foot was prepped and draped in a sterile manner as possible. 0.5% Marcaine plain was injected around a chilkoot area just above the malleoli. A knife was then used to cut through all soft tissue down to the bone. The patient had a known plate in his left ankle placed years ago for ankle trauma. I then used the Midas Chad saw to get through the metal and the bone in the ankle. The only named artery bleeding was the posterior tibial artery. It was suture-ligated with Vicryl. The wound was then irrigated, and a compressive dressing was applied. The patient tolerated the procedure remarkably well considering everything and was taken back to the intensive care unit in critical condition. There were no intraoperative complications. ESTIMATED BLOOD LOSS: 300 mL. DF/MODL Sujit Juarez Jr., M.D. / [id number] CC: Record Of Operation [address] [place]. [address] NAME: YONATHAN SPEARS Roxanne : 63 STATUS : ADM IN [facility]#: [id number] AGE: 51 ADM/REG DATE : 02/13/17 MR#: [id number] REPORT SERV DATE: 02/24/17 DICTATED BY: SUJIT JUAREZ JR. DATE: 02/23/17 REPORT STATUS : Draft TRANSCRIBED BY: MUSTAPHA DATE: 02/23/17 Joey Alfaro M.D.
--- NOTE | ~2017-02-13 | IDS ---
Interim Discharge Summary [facility] [address] [place]. [address] NAME: YONATHAN SPEARS : 63 STATUS : ADM IN PAT#: [id number] AGE: 51 ADM/REG DATE : 02/13/17 MR#: [id number] REPORT SERV DATE: 03/30/17 DICTATED BY: SAURABH MCKEON DATE: 03/30/17 REPORT STATUS : Draft TRANSCRIBED BY: MODL DATE: 03/30/17 ADMISSION DATE: 02/13/2017 DISCHARGE DATE: This interim discharge summary is in addition to interim discharge summary dictated by Dr. Mendosa on 03/23/2017. Briefly, the patient is a 51-year-old male with a history of heart failure with reduced EF, ischemic cardiomyopathy, diabetes type 2, atrial fibrillation, status post cardioversion, who has had a very complicated hospitalization. The patient has been in the hospital for greater than 60 days. Initially, the patient presented with a left toe infection. The left digit infection was initially managed by Podiatry. The patient had several digits amputated secondary to osteomyelitis with the attempt of preserving part of his left lower extremity status post procedure, it appears that infection was not contained with that procedure and the patient was seen by Vascular Surgery for further for a BKA. Prior to procedure happening, the patient went into a cardiac arrest and was coated for greater than 90 minutes with eventual return of spontaneous circulation. The patient also at this hospitalization was noted to have severe multiple vessel disease and underwent a coronary artery bypass graft. Today is day #20 status post procedure. After CABG, the patient remained in-house and subsequently had a left BKA by Vascular Surgery. Today is day #9 of status post left BKA. The patient has remained hemodynamically stable. Given that the patient has no insurance, there has been difficulty finding the patient a rehab facility for subacute rehab. Case Management has been consulted and currently working on placement for the patient with a tentative discharge date being 04/02/2017. Given the patient's complicated hospitalization, a Psychiatry consult was obtained to evaluate the patient for depression. Per their evaluation, the patient has normal reaction to his complicated hospitalization and no medication is deemed necessary at this point. The patient has remained hemodynamically stable. For his OMAIRA on CKD, over the last couple of days, there has been significant improvement in his creatinine. His creatinine has trended down and is currently 2.03, and his GFR has improved and is currently at 43. Plan is to continue to avoid nephrotoxins and also monitor his kidney function. While in-house, the patient is being seen by Physical Therapy with some inpatient physical therapy being offered. All other information in the interim discharge summary by Dr. Mendosa remains the same. DISPOSITION: Pending. JC/MUSTAPHA Saurabh Mckeon MD / [id number] CC: Interim Discharge Summary [address] [address] NAME: YONATHAN SPEARS : 63 STATUS : ADM IN PAT#: [id number] AGE: 51 ADM/REG DATE : 02/13/17 MR#: [id number] REPORT SERV DATE: 03/30/17 DICTATED BY: SAURABH MCKEON DATE: 03/30/17 REPORT STATUS : Draft TRANSCRIBED BY: MUSTAPHA DATE: 03/30/17 MD SILVIA Cheney DAYLE C
--- NOTE | ~2017-02-13 | CN ---
Consultation Report [facility] [address] [facility] [place]. [address] NAME: YONATHAN SPEARS : 63 STATUS : ADM IN [facility]#: [id number] AGE: 51 ADM/REG DATE : 02/13/17 MR#: [id number] REPORT SERV DATE: 02/20/17 DICTATED BY: TREVOR MCKENZIE DATE: 02/20/17 REPORT STATUS : Draft TRANSCRIBED BY: MODL DATE: 02/20/17 CONSULTATION DATE OF CONSULTATION: 02/20/2017 Greater than 1 hour of critical care time. TIME: From 1800 hours to 1900 hours. LOCATION: The patient is seen in CVICU 18 at the request of Dr. Holliday. HISTORY OF PRESENT ILLNESS: A 51-year-old white male, diabetic, was undergoing preparation for surgery for gangrene on his right foot when after the A line and IJ line were placed, he had a sudden cardiac arrest. CPR was initiated, had prolonged chest compression, multiple doses of epinephrine and medications. He came over to the ICU on an epinephrine drip at 15, Levophed drip at 15, and vasopressin drip at 0.08. He received boluses of epinephrine in between all this to maintain his blood pressure at least 60 systolic. The patient was intubated by Anesthesia. Chest x-ray shows evidence of an infiltrate in the left upper lobe. PAST MEDICAL HISTORY: Significant for diabetes mellitus, and gangrene of the foot. He is on insulin at home, Coreg, and Lipitor. He also has depressed ejection fraction of 30%. In the surgical ICU, he was given Solu-Cortef 100 mg. Bedside echo done by mn revealed no evidence of DVT in either leg and no evidence of pneumothorax. Chest x-ray revealed evidence of left upper lobe infiltrate. PHYSICAL EXAMINATION: VITAL SIGNS: Blood pressure currently is 106/59, pulse 100, saturation 91% on 100%. GENERAL: On multiple drips. HEENT: Head is normocephalic. Orally intubated. NECK: Supple. Right IJ. CHEST: Decreased breath sounds, especially the left side. CARDIAC: PMI displaced laterally. ABDOMEN: Soft and nontender. No masses or organomegaly. EXTREMITIES: No clubbing, cyanosis, or edema. NEUROLOGIC: He was moving and responsive. He was chemically paralyzed to facilitate his ventilation. LABORATORY STUDIES: Showed a pH of 7.20, pCO2 of 52, pO2 of 80, on 100%. Sodium 138, potassium 4.7, chloride 105, CO2 of 22, BUN 59, creatinine 2.11, glucose 144, magnesium 2.1. CBC: 10.3, 32.5, white count 89192, platelets 414,000. Consultation Report [facility] [address] [place]. [address] NAME: YONATHAN SPEARS : 63 STATUS : ADM IN [facility]#: [id number] AGE: 51 ADM/REG DATE : 02/13/17 MR#: [id number] REPORT SERV DATE: 02/20/17 DICTATED BY: TREVOR MCKENZIE DATE: 02/20/17 REPORT STATUS : Draft TRANSCRIBED BY: MODL DATE: 02/20/17 Chest x-ray shows evidence of infiltrate, left upper lobe, status post arrest. IMPRESSION: 1. Diabetes. 2. Gangrenous foot. 3. Probable pneumonia, left upper lobe. We will continue antibiotics, continue amiodarone, continue rocuronium, DVT prophylaxis, and IV fluids. RP/MUSTAPHA Trevor Mckenzie M.D. / [id number] CC: Joey Alfaro M.D.
--- NOTE | ~2017-02-13 | CN ---
Consultation Report [facility] [address] [facility] [place]. [address] NAME: YONATHAN SPEARS : 63 STATUS : ADM IN PAT#: [id number] AGE: 51 ADM/REG DATE : 02/13/17 MR#: [id number] REPORT SERV DATE: 03/30/17 DICTATED BY: NARENDRA HANSON DATE: 03/30/17 REPORT STATUS : Draft TRANSCRIBED BY: MUSTAPHA DATE: 03/30/17 PSYCHIATRIC CONSULTATION DATE OF CONSULTATION: 03/30/2017 I reviewed this patient's medical record. I discussed his status with his nurse. I discussed his status with Dr. Augustine. HISTORY OF PRESENT ILLNESS: He was admitted with cellulitis and osteomyelitis of his left foot. He is now status post a left below-knee amputation. He has had a prolonged and complicated hospital course. He is status post CABG. His ejection fraction is about 30%. He is status post cardioversion. He is status post hemodialysis for acute on chronic kidney disease. He had a pre-existing poorly controlled diabetes mellitus. I was consulted to address depression. He explained that he was depressed and somewhat angry when he was on a different floor. He feels less so now. He said he is appreciative of his current care. However, he is very anxious to be discharged from the hospital. He said he knew he would feel better when I he gets back home. PAST PSYCHIATRIC HISTORY: He denies any preexisting psychiatric issues. 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 He will no longer be able to do that kind of work. He feels he has been treated badly by his business operations manager. He has a girlfriend who is supportive. After discharge, he will go to live with his aunt. FAMILY HISTORY: No psychiatric illness. MENTAL STATUS: He was cooperative in attitude. His mood was sad. He attributed this sadness to the multiple negative life changing events of the past two months. His affect was appropriate. His thinking was logical. He had no delusions. He had no hallucinations. He was oriented to time, place, and person. He demonstrated good recent and remote memory. DIAGNOSIS: Depression, associated with a general medical condition. RECOMMENDATIONS: No further psychiatric intervention needed at this time. I will sign off. DARIUSZ/MUSTAPHA Narendra Hanson M.D. / [id number] Consultation Report [place] [place] [address] [place]. [address] NAME: YONATHAN SPEARS : 63 STATUS : ADM IN PAT#: [id number] AGE: 51 ADM/REG DATE : 02/13/17 MR#: [id number] REPORT SERV DATE: 03/30/17 DICTATED BY: NARENDRA HANSON DATE: 03/30/17 REPORT STATUS : Draft TRANSCRIBED BY: MODL DATE: 03/30/17 CC: MD SILVIA Cheney DAYLE C
--- NOTE | ~2017-02-13 | OP ---
Record Of Operation [facility] [address] [place]. [address] NAME: YONATHAN SPEARS : 63 STATUS : ADM IN PAT#: [id number] AGE: 51 ADM/REG DATE : 02/13/17 MR#: [id number] REPORT SERV DATE: 03/23/17 DICTATED BY: SUJIT JUAREZ JR. DATE: 03/21/17 REPORT STATUS : Draft TRANSCRIBED BY: MODL DATE: 03/21/17 DATE OF PROCEDURE: 03/21/2017 PREOPERATIVE DIAGNOSIS: Status post left ankle guillotine amputation for wet gangrene of the left foot. POSTOPERATIVE DIAGNOSIS: Status post left ankle guillotine amputation for wet gangrene of the left foot. OPERATION: Left formal [id number] amputation. SURGEON: Dr. Sujit Juarez. HISTORY: This is a 51-year-old white male, who has been hospitalized since 02/13/2017, with a number of cardiac issues. He had a left ankle guillotine amputation approximately three weeks ago for sepsis. Because of a precarious heart situation, we have not been able to formalize this amputation until now. DESCRIPTION OF PROCEDURE: The patient was placed on the operating room table. Underwent a general endotracheal anesthetic. The left leg was prepped and draped in a sterile manner as possible. An anterior flap was measured 12 cm distal in the tibial tubercle. The posterior flap was measured 10 cm distal to this. The skin was cut sharply with a knife. There was a hematoma seen on the medial side of the leg, where the vein harvest had been done. The anterior compartment of the muscles were cut first. The anterior tibial artery appeared to be occluded. The fibula was cut shorter than the tibia. The tibia was then cut with a power saw and beveled anteriorly. The posterior tibial artery was identified and was clamped and tied. It was fairly patent. The peroneal artery was oversewn with the suture. It was fairly patent. The wound was thoroughly irrigated. There was generalized oozing. I felt that a drain was necessary, it was brought out the anterior compartment. The fascia was closed with the 2-0 Vicryl. The skin was closed with the 3-0 nylon. A posterior splint was applied. The patient tolerated the procedure well in one fashion and poorly in another because he had to be placed on Levophed for a hypotensive blood pressure. The hypotension was intraoperative complication. He was also given 2 units of blood to try to pick his blood pressure up from this standpoint. Estimated blood loss was 250 mL. He was taken back to the recovery room in serious condition. DF/MUSTAPHA Sujit Juarez Jr., M.D. / [id number] Record Of [address] [address] NAME: YONATHAN SPEARS : 63 STATUS : ADM IN [facility]#: [id number] AGE: 51 ADM/REG DATE : 02/13/17 MR#: [id number] REPORT SERV DATE: 03/23/17 DICTATED BY: SUJIT JUAREZ JR. DATE: 03/21/17 REPORT STATUS : Draft TRANSCRIBED BY: MUSTAPHA DATE: 03/21/17 CC: Tiny Sapp
--- NOTE | ~2017-02-13 | CN ---
Consultation Report [facility] [address] [place]. [address] NAME: SAHIL SPEARS : 63 STATUS : ADM IN PAT#: [id number] AGE: 51 ADM/REG DATE : 02/13/17 MR#: [id number] REPORT SERV DATE: 03/05/17 DICTATED BY: ALIS DAWKINS DATE: 03/05/17 REPORT STATUS : Draft TRANSCRIBED BY: MODL DATE: 03/05/17 CONSULTATION DATE OF CONSULTATION: 03/05/2017 NURSE-PRACTITIONER WITH CARDIOTHORACIC SURGERY REASON FOR CONSULTATION: Multivessel coronary artery disease. HISTORY OF PRESENT ILLNESS: This is a 51-year-old male with history of obesity and type 2 diabetes mellitus, who was admitted on 02/13/2017 with cellulitis and osteomyelitis of his left foot. His troponin was mildly elevated upon admission at 0.09. The patient was evaluated by Surgery and underwent amputation of his 4th and 5th digits on the left foot as well as debridement on 02/13/2017. The patient developed tachypnea, tachycardic, and shortness of breath the following morning with further elevation of his troponin. Echocardiogram on 02/14/2017 revealed severe systolic heart failure with ejection fraction around 30%. Cardiology was consulted and recommended arteriogram, but this was postponed due to worsening renal function. On 02/20/2017, the patient was being prepped for surgical amputation of his left foot as he was starting to become septic. In the preop area, the patient suffered a cardiac arrest and was coded for 90 minutes. The patient eventually recovered, but his kidney function did not. He had a right groin Vas-Cath placed on 02/21/2017 and went for left guillotine amputation of the left ankle on 02/23/[address] Juarez. He was dialyzed twice in the past week and taken for cardiac catheterization today, which revealed multivessel coronary artery disease including a 70% stenosis to his first diagonal, 95% stenosis to his mid LAD, 99% stenosis to his mid left circ, 60% stenosis to his distal RCA, 80% right PDA, 65% right PAV, and 90% ramus. VGRAM was not performed and dialysis is planned today after cardiac catheterization. The patient is currently recovering after radial catheterization with no complaints. His family is with him at the bedside. CT surgery was consulted for evaluation of CAB. Upon discussing plans for CAB with him, the patient is agreeable, but wants to postpone the surgery until next week. PAST MEDICAL HISTORY: Type 2 diabetes mellitus, GERD, cellulitis and osteomyelitis of left foot. PAST SURGICAL HISTORY: He has a fractured left tibia and fibula with surgical re-correction and rods. FAMILY HISTORY: Positive for diabetes with his father. SOCIAL HISTORY: Previous smoker, but has not smoked in several years. Denies any alcohol abuse or use of illicit drugs. He is and does not have any children of his own. 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 ALLERGIES: NO KNOWN DRUG ALLERGIES. Consultation Report [place] [id number] [facility] [place]. [address] NAME: SAHIL SPEARS : 63 STATUS : ADM IN [facility]#: [id number] AGE: 51 ADM/REG DATE : 02/13/17 MR#: [id number] REPORT SERV DATE: 03/05/17 DICTATED BY: ALIS DAWKINS DATE: 03/05/17 REPORT STATUS : Draft TRANSCRIBED BY: MUSTAPHA DATE: 03/05/17 HOME MEDICATIONS: Levemir 20 units once a day along with NovoLog insulin per sliding scale and [id number] Zantac. REVIEW OF SYSTEMS: A 10-point review of systems was obtained and is negative other than HPI. PHYSICAL EXAMINATION: VITAL SIGNS: From today, temperature 98.2, heart rate 93, blood pressure 125/65, respiratory rate 14, O2 saturation 100% on 2 L. GENERAL: Obese male, in no acute distress. NEURO: Alert and oriented x3. Pupils are equal, round, reactive to light and accommodation. He has equal strength in bilateral upper extremities and bilateral lower extremities. PSYCH: Flat affect, talkative, pleasant. HEENT: Head is normocephalic and atraumatic. Sclerae clear. Nose midline with no abnormalities. Teeth with decent dentition. No cavities or abscesses noted. Ears with no abnormalities. NECK: Supple with no thyromegaly or lymphadenopathy. LUNGS: Clear to auscultation bilaterally with normal effort. CARDIAC: S1, S2 with no murmurs, rubs, or gallops. ABDOMEN: Obese, nontender with active bowel sounds. EXTREMITIES: Free of cyanosis or clubbing or edema. He has a left qeuah-cir-muiy amputation of the foot. Pedal pulses on right leg are palpable. LABS: From today, white blood cell count 9.0, hemoglobin 8.6, hematocrit 26.6, platelets 255. Sodium 142, potassium 4.0, chloride 106, bicarbonate 25, BUN 38, creatinine 4.7, and glucose 96. ASSESSMENT/PLAN: This 51-year-old male who is admitted with a gangrenous left foot and elevated troponin, who suffered a cardiac arrest on 02/20/2017, is now on dialysis. He was taken for an arteriogram today, which showed multivessel coronary artery disease as above. Patient needs four-vessel CAB, which was initially planned for tomorrow morning. On talking to the patient about surgery, he would rather wait till next week before proceeding with surgery. So plans will be made to take him to the operating room on Thursday03/09/2017 for four-vessel coronary bypass grafting by Dr. Godwin Salinas. I discussed this with Renal. He will dialyze today and then likely again on Thursday, and the plan is for Dr. Juarez to place a PermCath tomorrow and then discontinue the right femoral Vas-Cath. We discussed the STS risk stratification as well as risks and benefits of surgery and STS risk scores for him and this particular surgery include an overall mortality 2.5% and morbidity mortality of 24%. We discussed these in relation to his surgery and postop recovery, and the patient is willing to proceed. We would like to thank you for the consultation. We will look forward to helping you take care of Mr. Sahil Spears. Consultation Report [address] [address] NAME: SAHIL SPEARS : 63 STATUS : ADM IN PAT#: [id number] AGE: 51 ADM/REG DATE : 02/13/17 MR#: [id number] REPORT SERV DATE: 03/05/17 DICTATED BY: ALIS DAWKINS DATE: 03/05/17 REPORT STATUS : Draft TRANSCRIBED BY: MUSTAPHA DATE: 03/05/17 JEANNINE/MUSTAPHA Alis Dawkins NP / [id number] CC: MD SILVIA Ribeiro DAYLE C
--- NOTE | ~2017-02-13 | OP ---
Record Of [address] [place]. [address] NAME: YONATHAN SPEARS : 63 STATUS : ADM IN PAT#: [id number] AGE: 51 ADM/REG DATE : 02/13/17 MR#: [id number] REPORT SERV DATE: 03/11/17 DICTATED BY: JUWAN ALVAREZ DATE: 03/10/17 REPORT STATUS : Draft TRANSCRIBED BY: MODL DATE: 03/10/17 DATE OF PROCEDURE: 03/10/2017 SCHOOL PHOTOGRAPHS DETAILER: Hemanth Murrell. ANESTHESIOLOGIST: Mahendra Quach MD PREOPERATIVE DIAGNOSES: 1. Non-ST segment elevation myocardial infarction. 2. Cardiac arrest. 3. Sepsis, resolved. 4. Three-vessel coronary artery disease. 5. Peripheral vascular disease. 6. Left below-knee amputation, open. 7. Diabetes mellitus. 8. Tobacco abuse. 9. Hypertension. 10.Hyperlipidemia. 11.Anemia of chronic disease. 12.End-stage renal disease. POSTOPERATIVE DIAGNOSES: 1. Non-ST segment elevation myocardial infarction. 2. Cardiac arrest. 3. Sepsis, resolved. 4. Three-vessel coronary artery disease. 5. Peripheral vascular disease. 6. Left below-knee amputation, open. 7. Diabetes mellitus. 8. Tobacco abuse. 9. Hypertension. 10.Hyperlipidemia. 11.Pericardial cyst. 12.Anemia of chronic disease. 13.End-stage renal disease. OPERATION/PROCEDURE PERFORMED: 1. Median sternotomy. 2. Extracorporeal circulation. 3. Urgent coronary artery bypass grafting x4, left internal mammary artery, left anterior descending, reverse greater saphenous vein graft to D1, reverse greater saphenous vein graft to obtuse marginal #1, reverse greater saphenous vein graft to posterior descending artery. 4. Transesophageal echocardiogram. 5. Endoscopic vein harvest of right and left lobes. 6. Rigid external fixation of the sternum with sternal plating system with Bi[employer] Record Of [address] [place]. [address] NAME: YONATHAN SPEARS : 63 STATUS : ADM IN PAT#: [id number] AGE: 51 ADM/REG DATE : 02/13/17 MR#: [id number] REPORT SERV DATE: 03/11/17 DICTATED BY: JUWAN ALVAREZ DATE: 03/10/17 REPORT STATUS : Draft TRANSCRIBED BY: MODL DATE: 03/10/17 [facility]. 7. Prevena dressing placement. 8. Right femoral arterial line placement. 9. Resection of pericardial cyst. COMPLICATIONS: None. TUBES AND DRAINS: A 24-Burmese Gustavo in the left pleural space; a 32-Burmese straight mediastinal chest tube; atrial and ventricular wires. POSTOPERATIVE CONDITION: To CVICU. He was weaned on 5 mcg per kilo per minute of dobutamine. Cross-clamp was 72 minutes and total cardiopulmonary bypass time was 88 minutes. INTRAOPERATIVE FINDINGS: On transesophageal echo, there is trace MR. His EF was 30% to 35%. There was no AI, no . He had preserved wall motion post bypass. ANATOMIC FINDINGS: Anatomic findings of the right lower lobe, right lower leg calf vein was not usable, vein was taken from both legs in order to procure the appropriate number bypass grafts. All targets have posterior plaquing throughout. I was unable to clear the distal disease on this PDA. Grafts had excellent Doppler signals both pre and post protamine. DETAILS OF CARDIOPULMONARY BYPASS GRAFTIN. Graft #1, left internal mammary artery to left anterior descending, this was a 1.75 mm target. 2. Graft #2, reverse greater saphenous vein graft to D1, this was a 1.5 mm target. 3. Reverse greater saphenous vein graft to obtuse marginal #1, this was a 1.75 mm target. 4. Reverse greater saphenous vein graft to posterior descending artery, this was a 1.75 mm target. All grafts had posterior plaquing. DETAILS OF STERNAL PLATING: Sternum was closed with sternal wires and sternal plates. Two X plates were applied to the body of the sternum and one 180-degree plate to the manubrium in between the sternal wires, 16 mm screws were used for a total of 20 screws. MEDIASTINAL FINDINGS: Upon opening the pericardium, there was what appeared to be a pericardial cyst at the pericardial reflection at the superior-anterior most portion of the pericardial sac at the reflection along the aorta, this was excised and sent for pathology. INDICATIONS FOR PROCEDURE: Mr. Spears is a 51-year-old gentleman, initially admitted with infected toes, sepsis, and need for vascular surgery. He had a prolonged cardiac arrest after having lines placed for vascular surgery following appropriate resuscitation from this in recovery, he ultimately underwent an open below-knee amputation and then underwent heart catheterization, which revealed severe three-vessel disease. The patient has a host of comorbid conditions including diabetes, prior tobacco abuse, hypertension, hyperlipidemia, end-stage renal disease, severe peripheral vascular disease, resolved sepsis, cardiac arrest with ST-segment elevation [place], and anemia of chronic disease. He was seen. Risks, benefits, and alternatives were discussed including but not limited to, bleeding, infection, stroke, Record Of Operation [address] [place]. [address] NAME: YONATHAN SPEARS : 63 STATUS : ADM IN PAT#: [id number] AGE: 51 ADM/REG DATE : 02/13/17 MR#: [id number] REPORT SERV DATE: 03/11/17 DICTATED BY: JUWAN ALVAREZ DATE: 03/10/17 REPORT STATUS : Draft TRANSCRIBED BY: MUSTAPHA DATE: 03/10/17 , heart attack, need for future operations. All questions were answered. His STS mortality and morbidity were discussed with him. Mortality was calculated less than 5%. Morbidity mortality was calculated at less than 20%. All questions were answered. DESCRIPTION OF PROCEDURE: The patient was brought to the operating room and placed supine on the operating room table. After satisfactory induction of general endotracheal anesthesia, he was prepped and draped in the usual sterile fashion. Working simultaneously, median sternotomy was performed while endoscopic vein harvest was performed from both legs. Skin and subcutaneous tissues were divided. Clavipectoral fascia was divided. The sternum was divided in the midline. Sternal retractor was placed. The thymic tissue was divided in the midline. The pericardium was opened in the midline and T'd at the diaphragm. The pericardial cyst was encountered with attachment at the superior reflection, this was excised using electrocautery and sent for pathology. The targets were inspected. Targets were felt to be as depicted as discussed in the findings. Rultract retractor was then placed. The internal mammary artery was harvested in a pedicle fashion from its takeoff under the subclavian vein at the bifurcation of the diaphragm. This was a difficult dissection secondary to inflammation in the chest wall. I feel this inflammation is most likely from his prior CPR. Systemic heparinization was achieved. After 3 minutes, the pedicle was clipped and divided. The bifurcation of the diaphragm was infiltrated with papaverine. There were significant adhesions of his left upper lobe to the pericardium and to the mediastinum on the left side. I did not feel that these adhesions could be taken down without causing significant air leak and potential pulmonary complications. The pericardium was V'd. However, the course of the mammary was more anterior and more underneath the body of the sternum at the end of the case than typical. Sternal retractor was removed. The Rultract retractor was removed and Gustavo drain was placed and exteriorized. A sternal retractor was placed. A pericardial well was created. Ascending aorta was cannulated at the base of the innominate artery through dual pursestring. Antegrade root vent cardioplegia tack was placed and the dual stage venous cannula was placed through a pursestring in the right atrial appendage. The conduit was inspected and prepared for bypass. Cardiopulmonary bypass was initiated. Prior to heparinization and initiation of cardiopulmonary bypass, a right femoral A-line was placed using modified Seldinger technique. A left femoral A-line was attempted, however, could not find the artery, after the A-line was placed over a guidewire and sutured into position. After cardiopulmonary bypass was initiated, the targets were again inspected and cardiopulmonary bypass was initiated after documentation of an adequate ACT. The cross-clamp was brought up and the heart was arrested with cold antegrade cardioplegia switching to intermittent aliquots of antegrade cardioplegia every 15 to 20 minutes throughout the remainder of the cross clamp. After arrest, distal anastomoses were performed as mentioned in the findings. All distal anastomoses were performed with 8-0 Surgipro. The METCALF was brought down through V in the pericardium, however, as mentioned earlier could not V this as well as I would like secondary to large adhesions. The pedicle was attached to the epicardium in two places using 6-0 Prolene. The clip was removed and there was excellent flow, both proximal and distal to the anastomosis and in the LAD. Proximals were then constructed. The veins were cut to length and spatulated. The proximal aortotomy was performed, enlarged with a 5.2 mm punch, and then a running continuous anastomoses were performed using 6-0 Prolene. Vein markers were placed. The grafts were de-aired. The cross-clamp was removed. Atrial and ventricular pacing wires were placed. The patient returned to normal sinus rhythm and did Record Of [facility] [address] [place]. [address] NAME: YONATHAN SPEARS : 63 STATUS : ADM IN PAT#: [id number] AGE: 51 ADM/REG DATE : 02/13/17 MR#: [id number] REPORT SERV DATE: 03/11/17 DICTATED BY: JUWAN ALVAREZ DATE: 03/10/17 REPORT STATUS : Draft TRANSCRIBED BY: MODL DATE: 03/10/17 not need to be paced. He was weaned from cardiopulmonary bypass without incident. Protamine was administered. He was decannulated. All cannulation sites were oversewn. The hemostasis was obtained. The pericardium was loosely reapproximated over the ascending aorta and the right ventricle. A 32-Burmese chest tube was placed under the sternum. Meticulous hemostasis was obtained in the sternum. The sternum was then reapproximated using stainless steel sternal wires, some of these were double wires, and SternaLoRaidarrr Matt system was used for two X plates and one 180 plate using 16 mm screws. The clavipectoral fascia was then reapproximated using running #1 StrataFix, subcutaneous tissues closed using running #1 StrataFix, the skin and subcutaneous tissues were closed using 2-0 Quill. A Prevena dressing was placed and the patient was transferred to CVICU in stable condition. Zack/MUSTAPHA Juwan Alvarez MD / [id number] CC: MD SILVIA Powers DAYLE C
--- NOTE | ~2017-02-13 | OP ---
Record Of Operation [facility] [address] [place]. [address] NAME: YONATHAN SPEARS : 63 STATUS : ADM IN PAT#: [id number] AGE: 51 ADM/REG DATE : 02/13/17 MR#: [id number] REPORT SERV DATE: 03/13/17 DICTATED BY: DATE: REPORT STATUS : Draft TRANSCRIBED BY: MODL DATE: 03/13/17 DATE OF PROCEDURE: 03/13/2017 CHIEF COMPLAINT/REASON FOR PROCEDURE: Atrial fibrillation. PROCEDURE: With the assistance of my Anesthesia colleagues, Mr. Spears was sedated for the procedure. The transesophageal probe was placed with one attempt without complications. 1. The aortic valve was trileaflet. There was no significant aortic valvular regurgitation. 2. The left ventricular systolic function was severely depressed with an ejection fraction measured via Adam's method of 20%. 3. The mitral valve appeared to open normally. There was trivial color flow evidence and Doppler evidence of mitral valvular regurgitation. 4. The tricuspid valve opened normally. There was no significant tricuspid valvular regurgitation present. 5. The left atrium was interrogated at multiple levels and depths. There was no evidence of left atrium or left atrial appendage thrombus. Doppler velocities within the left atrial appendage ranged between 40 and 60 cm per second. 6. The right ventricle appeared mildly dilated with severely decreased systolic function. 7. There was no evidence of pericardial effusion. Following verification of no thrombus present, direct current cardioversion was performed, 300 joules x1 in a synchronized manner with return to sinus rhythm. IMPRESSION: 1. Successful LELAND cardioversion. 2. Severe biventricular dysfunction as detailed above. MATTY/MUSTAPHA Veronica Yarbrough M.D. / [id number] CC: Tiny Rossi
[2017-02-13 14:47] LABS: HEMATOCRIT 39.1 % (40.0-51.0); HEMOGLOBIN 13.3 g/dL (13.6-17.8); MEAN CORPUSCULAR HEMOGLOB 29.2 pg (26.0-34.0); MEAN CORPUSCULAR VOLUME 85.9 fL (80-100); MEAN PLATELET VOLUME 9.4 fL (9.2-13.0); PLATELET COUNT 487 10/3/uL (150-400); RBC DISTRIBUTION WIDTH 13.2 % (12.0-16.0); RED CELL COUNT 4.55 10/6/uL (4.7-6.1); WHITE BLOOD CELLS 18.9 10/3/uL (4.5-10.5)
[2017-02-13 14:51] LABS: DIFFERENTIAL ORDERED N
[2017-02-13 14:58] LABS: INTERNATIONAL NORMAL RATI 1.3 UNITS (-); PROTIME (NOT ORD) 15.7 SEC (12.0-14.5)
[2017-02-13 15:00] LABS: ASCORBIC ACID (UR NOT ORDER) NEG (NEG); BILIRUBIN, URINE NEGATIVE (NEG); ER URINALYSIS TAT 0 Hrs 21 Mins; KETONE, URINE TRACE MG/DL (NEG); LEUKOCYTE ESTERASE(NOT OR NEG (NEG); NITRITE (URINE) NEG (NEG); WBC (NOT ORDERED) (RFLEX) 2 (0-5)
[2017-02-13 15:06] LABS: ALKALINE PHOSPHATASE 119 U/L (45-117); BUN (BLOOD UREA NITROGEN) 19 MG/DL (6-23); CALCIUM, SERUM 9.3 MG/DL (8.5-10.4); CHLORIDE, SERUM 99 MMOL/L (96-112); CO2 (CARBON DIOXIDE) 21 MMOL/L (24-34); CREATININE 1.06 MG/DL (0.70-1.30); DIRECT BILIRUBIN 0.2 MG/DL (0.0-0.4); GFR AFRICAN AMERICAN 93 ML/MIN (>=60); GFR NON AFRICAN AMERICAN 80 ML/MIN (>=60); GLUCOSE, SERUM 283 MG/DL (60-99); INDIRECT BILIRUBIN(NOT ORDER) 0.5 MG/DL (0.1-0.9); POTASSIUM, SERUM 4.3 MMOL/L (3.5-5.3); SGOT(AST) 12 U/L (5-40); SGPT(ALT) 24 U/L (5-65); SODIUM, SERUM 132 MMOL/L (135-148); TOTAL BILIRUBIN 0.7 MG/DL (0-1.2); TOTAL PROTEIN 8.3 G/DL (6.0-8.5)
[2017-02-13 15:22] LABS: A/G RATIO 0.5 (0.7-1.9); ALBUMIN 2.6 G/DL (3.5-5.0); GLOBULIN 5.7 G/DL (2.5-4.1)
[2017-02-13 16:39] LABS: SED RATE 95 MM/HR (0-15)
[2017-02-13 18:20] LABS: TROPONIN I 0.09 NG/ML (<0.05)
[2017-02-13 18:28] LABS: ACETONE NEG
[2017-02-13 18:45] LABS: PROCALCITONIN 0.83 ng/mL (<0.5)
[2017-02-14 05:35] LABS: CALCIUM, SERUM 8.5 MG/DL (8.5-10.4); CHLORIDE, SERUM 101 MMOL/L (96-112); CO2 (CARBON DIOXIDE) 25 MMOL/L (24-34); CREATININE 1.27 MG/DL (0.70-1.30); GFR AFRICAN AMERICAN 75 ML/MIN (>=60); GFR NON AFRICAN AMERICAN 65 ML/MIN (>=60); GLUCOSE, SERUM 269 MG/DL (60-99); SODIUM, SERUM 134 MMOL/L (135-148)
[2017-02-14 05:36] LABS: BUN (BLOOD UREA NITROGEN) 28 MG/DL (6-23); POTASSIUM, SERUM 5.2 MMOL/L (3.5-5.3)
[2017-02-14 05:38] LABS: BASOPHILS 0.2 %; BASOPHILS ABSOLUTE 0.04 10/3/uL (0.0-0.16); EOSINOPHILS 0.5 %; EOSINOPHILS ABSOLUTE 0.08 10/3/uL (0.0-0.53); HEMOGLOBIN 11.2 g/dL (13.6-17.8); IMMATURE GRANULOCYTES 0.3 %; IMMATURE GRANULOCYTES ABSOLUTE 0.06 10/3/uL (0.0-0.11); LYMPHOCYTES 16.1 %; LYMPHOCYTES ABSOLUTE 2.82 10/3/uL (0.67-4.30); MEAN CORPUS HGB CONC 32.7 g/dL (32.0-36.0); MEAN CORPUSCULAR HEMOGLOB 28.6 pg (26.0-34.0); MEAN CORPUSCULAR VOLUME 87.7 fL (80-100); MEAN PLATELET VOLUME 9.5 fL (9.2-13.0); MONOCYTES 7.5 %; MONOCYTES ABSOLUTE 1.31 10/3/uL (0.21-1.20); NEUTROPHILS 75.4 %; NEUTROPHILS ABSOLUTE 13.22 10/3/uL (2.02-8.40); PLATELET COUNT 405 10/3/uL (150-400); RBC DISTRIBUTION WIDTH 13.3 % (12.0-16.0); RED CELL COUNT 3.91 10/6/uL (4.7-6.1); WHITE BLOOD CELLS 17.5 10/3/uL (4.5-10.5)
[2017-02-14 05:44] LABS: HEMATOCRIT 34.3 % (40.0-51.0); MANUAL DIFF NO %
[2017-02-14 13:07] LABS: ALLENS TEST Pos; BE (BASE EXCESS) -3.5 MEQ/L (0 +/- 2.5); CARBOXYHEMOGLOBIN 1.1 % (0-3); DEVICE Nasal Cannula 2.5 L; HCO3 (ACTUAL BICARBONATE) 21.9 MEQ/L (23-27); HEMOBLOGIN CONTENT 12.7 G/DL (14-18); INSTRUMENT SERIAL # 8083; METHEMOGLOBIN 0.1 % (0-3); O2 CONTENT 16.6 VOL% (18-24); OPERATOR ID 35798; PCO2 (CO2 TENSION) 41 MMHG (35-45); PO2 (O2 TENSION) 71 MMHG (79-93); SAMPLE Arterial; pH 7.35 (7.37-7.43)
[2017-02-15 05:43] LABS: BASOPHILS 0.2 %; BASOPHILS ABSOLUTE 0.04 10/3/uL (0.0-0.16); EOSINOPHILS 1.7 %; EOSINOPHILS ABSOLUTE 0.29 10/3/uL (0.0-0.53); HEMOGLOBIN 9.9 g/dL (13.6-17.8); IMMATURE GRANULOCYTES 0.4 %; IMMATURE GRANULOCYTES ABSOLUTE 0.06 10/3/uL (0.0-0.11); LYMPHOCYTES 12.5 %; LYMPHOCYTES ABSOLUTE 2.07 10/3/uL (0.67-4.30); MEAN CORPUS HGB CONC 32.6 g/dL (32.0-36.0); MEAN CORPUSCULAR HEMOGLOB 28.7 pg (26.0-34.0); MEAN CORPUSCULAR VOLUME 88.1 fL (80-100); MEAN PLATELET VOLUME 9.4 fL (9.2-13.0); MONOCYTES 11.7 %; MONOCYTES ABSOLUTE 1.94 10/3/uL (0.21-1.20); NEUTROPHILS 73.5 %; NEUTROPHILS ABSOLUTE 12.22 10/3/uL (2.02-8.40); PLATELET COUNT 356 10/3/uL (150-400); RBC DISTRIBUTION WIDTH 13.8 % (12.0-16.0); RED CELL COUNT 3.45 10/6/uL (4.7-6.1); WHITE BLOOD CELLS 16.6 10/3/uL (4.5-10.5)
[2017-02-15 05:46] LABS: HEMATOCRIT 30.4 % (40.0-51.0); MANUAL DIFF NO %
[2017-02-15 06:03] LABS: BUN (BLOOD UREA NITROGEN) 42 MG/DL (6-23); CALCIUM, SERUM 8.4 MG/DL (8.5-10.4); CHLORIDE, SERUM 98 MMOL/L (96-112); CO2 (CARBON DIOXIDE) 24 MMOL/L (24-34); CREATININE 2.53 MG/DL (0.70-1.30); GFR AFRICAN AMERICAN 33 ML/MIN (>=60); GFR NON AFRICAN AMERICAN 28 ML/MIN (>=60); GLUCOSE, SERUM 148 MG/DL (60-99); POTASSIUM, SERUM 4.6 MMOL/L (3.5-5.3); SODIUM, SERUM 134 MMOL/L (135-148); TROPONIN I 0.16 NG/ML (<0.05)
[2017-02-16 05:41] LABS: BASOPHILS 0.2 %; BASOPHILS ABSOLUTE 0.04 10/3/uL (0.0-0.16); EOSINOPHILS 1.6 %; EOSINOPHILS ABSOLUTE 0.26 10/3/uL (0.0-0.53); HEMATOCRIT 29.1 % (40.0-51.0); HEMOGLOBIN 9.5 g/dL (13.6-17.8); IMMATURE GRANULOCYTES 0.4 %; IMMATURE GRANULOCYTES ABSOLUTE 0.06 10/3/uL (0.0-0.11); LYMPHOCYTES 15.7 %; LYMPHOCYTES ABSOLUTE 2.52 10/3/uL (0.67-4.30); MANUAL DIFF NO %; MEAN CORPUS HGB CONC 32.6 g/dL (32.0-36.0); MEAN CORPUSCULAR HEMOGLOB 28.4 pg (26.0-34.0); MEAN CORPUSCULAR VOLUME 87.1 fL (80-100); MEAN PLATELET VOLUME 9.2 fL (9.2-13.0); MONOCYTES 10.7 %; MONOCYTES ABSOLUTE 1.71 10/3/uL (0.21-1.20); NEUTROPHILS 71.4 %; NEUTROPHILS ABSOLUTE 11.42 10/3/uL (2.02-8.40); PLATELET COUNT 355 10/3/uL (150-400); RBC DISTRIBUTION WIDTH 13.9 % (12.0-16.0); RED CELL COUNT 3.34 10/6/uL (4.7-6.1)
[2017-02-16 05:57] LABS: ALBUMIN 2.2 G/DL (3.5-5.0); BUN (BLOOD UREA NITROGEN) 56 MG/DL (6-23); CALCIUM, SERUM 8.3 MG/DL (8.5-10.4); CHLORIDE, SERUM 98 MMOL/L (96-112); CO2 (CARBON DIOXIDE) 22 MMOL/L (24-34); CREATININE 3.74 MG/DL (0.70-1.30); GFR AFRICAN AMERICAN 20 ML/MIN (>=60); GFR NON AFRICAN AMERICAN 17 ML/MIN (>=60); GLUCOSE, SERUM 82 MG/DL (60-99); PHOSPHORUS, SERUM 5.8 MG/DL (2.5-4.5); POTASSIUM, SERUM 4.3 MMOL/L (3.5-5.3); SODIUM, SERUM 134 MMOL/L (135-148)
[2017-02-16 06:29] LABS: PROCALCITONIN 0.83 ng/mL (<0.5)
[2017-02-16 16:35] LABS: ALBUMIN 2.4 G/DL (3.5-5.0); CALCIUM, SERUM 8.7 MG/DL (8.5-10.4); CHLORIDE, SERUM 99 MMOL/L (96-112); CO2 (CARBON DIOXIDE) 21 MMOL/L (24-34); CREATININE 3.88 MG/DL (0.70-1.30); GFR AFRICAN AMERICAN 19 ML/MIN (>=60); GFR NON AFRICAN AMERICAN 17 ML/MIN (>=60); GLUCOSE, SERUM 78 MG/DL (60-99); PHOSPHORUS, SERUM 5.4 MG/DL (2.5-4.5); POTASSIUM, SERUM 4.4 MMOL/L (3.5-5.3); SODIUM, SERUM 133 MMOL/L (135-148)
[2017-02-16 16:36] LABS: BUN (BLOOD UREA NITROGEN) 62 MG/DL (6-23)
[2017-02-16 19:28] LABS: CREATININE (RANDOM URINE) 66.8 MG/DL; CREATININE, URINE 66.8 MG/DL; MICROALBUMIN, RANDOM URINE 2.3 MG/DL
[2017-02-17 06:59] LABS: BASOPHILS 0.2 %; BASOPHILS ABSOLUTE 0.03 10/3/uL (0.0-0.16); EOSINOPHILS 1.7 %; EOSINOPHILS ABSOLUTE 0.23 10/3/uL (0.0-0.53); HEMATOCRIT 30.6 % (40.0-51.0); HEMOGLOBIN 10.3 g/dL (13.6-17.8); IMMATURE GRANULOCYTES 0.4 %; IMMATURE GRANULOCYTES ABSOLUTE 0.05 10/3/uL (0.0-0.11); LYMPHOCYTES 10.9 %; LYMPHOCYTES ABSOLUTE 1.47 10/3/uL (0.67-4.30); MEAN CORPUS HGB CONC 33.7 g/dL (32.0-36.0); MEAN CORPUSCULAR HEMOGLOB 28.5 pg (26.0-34.0); MEAN CORPUSCULAR VOLUME 84.8 fL (80-100); MEAN PLATELET VOLUME 9.2 fL (9.2-13.0); MONOCYTES 8.9 %; MONOCYTES ABSOLUTE 1.21 10/3/uL (0.21-1.20); NEUTROPHILS 77.9 %; NEUTROPHILS ABSOLUTE 10.54 10/3/uL (2.02-8.40); PLATELET COUNT 371 10/3/uL (150-400); RBC DISTRIBUTION WIDTH 13.9 % (12.0-16.0); RED CELL COUNT 3.61 10/6/uL (4.7-6.1); WHITE BLOOD CELLS 13.5 10/3/uL (4.5-10.5)
[2017-02-17 07:05] LABS: MANUAL DIFF NO %
[2017-02-17 07:14] LABS: ALBUMIN 2.1 G/DL (3.5-5.0); BUN (BLOOD UREA NITROGEN) 61 MG/DL (6-23); CALCIUM, SERUM 8.5 MG/DL (8.5-10.4); CHLORIDE, SERUM 99 MMOL/L (96-112); CO2 (CARBON DIOXIDE) 21 MMOL/L (24-34); CREATININE 3.31 MG/DL (0.70-1.30); GFR AFRICAN AMERICAN 23 ML/MIN (>=60); GFR NON AFRICAN AMERICAN 20 ML/MIN (>=60); GLUCOSE, SERUM 117 MG/DL (60-99); PHOSPHORUS, SERUM 5.3 MG/DL (2.5-4.5); POTASSIUM, SERUM 4.4 MMOL/L (3.5-5.3); SODIUM, SERUM 134 MMOL/L (135-148)
[2017-02-18 04:45] LABS: BASOPHILS 0.3 %; BASOPHILS ABSOLUTE 0.04 10/3/uL (0.0-0.16); EOSINOPHILS 2.3 %; EOSINOPHILS ABSOLUTE 0.28 10/3/uL (0.0-0.53); HEMATOCRIT 31.6 % (40.0-51.0); HEMOGLOBIN 10.5 g/dL (13.6-17.8); IMMATURE GRANULOCYTES 0.6 %; IMMATURE GRANULOCYTES ABSOLUTE 0.07 10/3/uL (0.0-0.11); LYMPHOCYTES 12.7 %; LYMPHOCYTES ABSOLUTE 1.56 10/3/uL (0.67-4.30); MEAN CORPUS HGB CONC 33.2 g/dL (32.0-36.0); MEAN CORPUSCULAR HEMOGLOB 28.7 pg (26.0-34.0); MEAN CORPUSCULAR VOLUME 86.3 fL (80-100); MEAN PLATELET VOLUME 9.4 fL (9.2-13.0); MONOCYTES 10.2 %; MONOCYTES ABSOLUTE 1.25 10/3/uL (0.21-1.20); NEUTROPHILS 73.9 %; NEUTROPHILS ABSOLUTE 9.05 10/3/uL (2.02-8.40); PLATELET COUNT 407 10/3/uL (150-400); RBC DISTRIBUTION WIDTH 13.8 % (12.0-16.0); RED CELL COUNT 3.66 10/6/uL (4.7-6.1); WHITE BLOOD CELLS 12.3 10/3/uL (4.5-10.5)
[2017-02-18 04:46] LABS: MANUAL DIFF NO %
[2017-02-18 05:06] LABS: BUN (BLOOD UREA NITROGEN) 64 MG/DL (6-23); CALCIUM, SERUM 8.4 MG/DL (8.5-10.4); CHLORIDE, SERUM 105 MMOL/L (96-112); CO2 (CARBON DIOXIDE) 21 MMOL/L (24-34); PHOSPHORUS, SERUM 4.4 MG/DL (2.5-4.5); POTASSIUM, SERUM 4.8 MMOL/L (3.5-5.3); SODIUM, SERUM 137 MMOL/L (135-148)
[2017-02-18 05:16] LABS: CREATININE 2.77 MG/DL (0.70-1.30); GFR AFRICAN AMERICAN 29 ML/MIN (>=60); GFR NON AFRICAN AMERICAN 25 ML/MIN (>=60); GLUCOSE, SERUM 161 MG/DL (60-99)
[2017-02-19 04:11] LABS: BASOPHILS 0.4 %; BASOPHILS ABSOLUTE 0.04 10/3/uL (0.0-0.16); EOSINOPHILS 2.8 %; HEMATOCRIT 31.5 % (40.0-51.0); HEMOGLOBIN 10.1 g/dL (13.6-17.8); IMMATURE GRANULOCYTES 0.5 %; IMMATURE GRANULOCYTES ABSOLUTE 0.05 10/3/uL (0.0-0.11); LYMPHOCYTES 14.5 %; LYMPHOCYTES ABSOLUTE 1.54 10/3/uL (0.67-4.30); MEAN CORPUS HGB CONC 32.1 g/dL (32.0-36.0); MEAN CORPUSCULAR HEMOGLOB 28.1 pg (26.0-34.0); MEAN CORPUSCULAR VOLUME 87.7 fL (80-100); MEAN PLATELET VOLUME 9.4 fL (9.2-13.0); MONOCYTES 10.4 %; MONOCYTES ABSOLUTE 1.11 10/3/uL (0.21-1.20); NEUTROPHILS 71.4 %; PLATELET COUNT 422 10/3/uL (150-400); RBC DISTRIBUTION WIDTH 13.7 % (12.0-16.0); RED CELL COUNT 3.59 10/6/uL (4.7-6.1); WHITE BLOOD CELLS 10.6 10/3/uL (4.5-10.5)
[2017-02-19 04:14] LABS: MANUAL DIFF NO %
[2017-02-19 04:21] LABS: ALBUMIN 2.1 G/DL (3.5-5.0); CALCIUM, SERUM 8.3 MG/DL (8.5-10.4); CHLORIDE, SERUM 106 MMOL/L (96-112); CO2 (CARBON DIOXIDE) 24 MMOL/L (24-34); GLUCOSE, SERUM 179 MG/DL (60-99); POTASSIUM, SERUM 4.6 MMOL/L (3.5-5.3); SODIUM, SERUM 138 MMOL/L (135-148)
[2017-02-19 04:24] LABS: BUN (BLOOD UREA NITROGEN) 60 MG/DL (6-23); CREATININE 2.27 MG/DL (0.70-1.30); GFR AFRICAN AMERICAN 37 ML/MIN (>=60); GFR NON AFRICAN AMERICAN 32 ML/MIN (>=60); PHOSPHORUS, SERUM 3.3 MG/DL (2.5-4.5)
[2017-02-20 06:00] LABS: BASOPHILS 0.5 %; BASOPHILS ABSOLUTE 0.06 10/3/uL (0.0-0.16); EOSINOPHILS ABSOLUTE 0.46 10/3/uL (0.0-0.53); HEMATOCRIT 32.5 % (40.0-51.0); HEMOGLOBIN 10.3 g/dL (13.6-17.8); IMMATURE GRANULOCYTES 0.7 %; IMMATURE GRANULOCYTES ABSOLUTE 0.08 10/3/uL (0.0-0.11); LYMPHOCYTES 15.4 %; LYMPHOCYTES ABSOLUTE 1.76 10/3/uL (0.67-4.30); MEAN CORPUS HGB CONC 31.7 g/dL (32.0-36.0); MEAN CORPUSCULAR VOLUME 88.3 fL (80-100); MEAN PLATELET VOLUME 9.1 fL (9.2-13.0); MONOCYTES 9.6 %; NEUTROPHILS 69.8 %; NEUTROPHILS ABSOLUTE 7.96 10/3/uL (2.02-8.40); PLATELET COUNT 412 10/3/uL (150-400); RBC DISTRIBUTION WIDTH 14.1 % (12.0-16.0); RED CELL COUNT 3.68 10/6/uL (4.7-6.1); WHITE BLOOD CELLS 11.4 10/3/uL (4.5-10.5)
[2017-02-20 06:03] LABS: MANUAL DIFF NO %
[2017-02-20 06:12] LABS: ALBUMIN 2.2 G/DL (3.5-5.0); CALCIUM, SERUM 8.7 MG/DL (8.5-10.4); CHLORIDE, SERUM 105 MMOL/L (96-112); CO2 (CARBON DIOXIDE) 22 MMOL/L (24-34); CREATININE 2.11 MG/DL (0.70-1.30); GFR AFRICAN AMERICAN 40 ML/MIN (>=60); GFR NON AFRICAN AMERICAN 35 ML/MIN (>=60); GLUCOSE, SERUM 144 MG/DL (60-99); PHOSPHORUS, SERUM 3.7 MG/DL (2.5-4.5); POTASSIUM, SERUM 4.7 MMOL/L (3.5-5.3); SODIUM, SERUM 138 MMOL/L (135-148)
[2017-02-20 06:14] LABS: BUN (BLOOD UREA NITROGEN) 54 MG/DL (6-23)
[2017-02-20 19:37] LABS: BE (BASE EXCESS) -8.3 MEQ/L (0 +/- 2.5); CARBOXYHEMOGLOBIN 0.3 % (0-3); HCO3 (ACTUAL BICARBONATE) 22.9 MEQ/L (23-27); HEMOBLOGIN CONTENT 15.3 G/DL (14-18); INSTRUMENT SERIAL # 11843; METHEMOGLOBIN 0.5 % (0-3); MODE CMV; O2 CONTENT 18.6 VOL% (18-24); OPERATOR ID 31061; PCO2 (CO2 TENSION) 74 MMHG (35-45); PO2 (O2 TENSION) 68 MMHG (79-93); SAMPLE Arterial; pH 7.11 (7.37-7.43)
[2017-02-20 19:38] LABS: TIDAL VOLUME 500 ML
[2017-02-20 20:04] LABS: BE (BASE EXCESS) -7.4 MEQ/L (0 +/- 2.5); CARBOXYHEMOGLOBIN 0.2 % (0-3); HCO3 (ACTUAL BICARBONATE) 23.2 MEQ/L (23-27); HEMOBLOGIN CONTENT 14.9 G/DL (14-18); INSTRUMENT SERIAL # 11843; METHEMOGLOBIN 0.5 % (0-3); MODE CMV; O2 CONTENT 17.7 VOL% (18-24); OPERATOR ID 31061; PCO2 (CO2 TENSION) 71 MMHG (35-45); PO2 (O2 TENSION) 62 MMHG (79-93); SAMPLE Arterial; TIDAL VOLUME 500 ML; pH 7.13 (7.37-7.43)
[2017-02-20 20:18] LABS: MEAN CORPUS HGB CONC 32.5 g/dL (32.0-36.0); MEAN CORPUSCULAR HEMOGLOB 28.6 pg (26.0-34.0); MEAN CORPUSCULAR VOLUME 87.9 fL (80-100); MEAN PLATELET VOLUME 9.2 fL (9.2-13.0); RBC DISTRIBUTION WIDTH 13.8 % (12.0-16.0)
[2017-02-20 20:21] LABS: HEMATOCRIT 42.1 % (40.0-51.0); HEMOGLOBIN 13.7 g/dL (13.6-17.8); RED CELL COUNT 4.79 10/6/uL (4.7-6.1); WHITE BLOOD CELLS 37.8 10/3/uL (4.5-10.5)
[2017-02-20 20:22] LABS: PLATELET COUNT 542 10/3/uL (150-400)
[2017-02-20 20:23] LABS: BE (BASE EXCESS) -7.3 MEQ/L (0 +/- 2.5); CARBOXYHEMOGLOBIN 0.1 % (0-3); HCO3 (ACTUAL BICARBONATE) 22.8 MEQ/L (23-27); HEMOBLOGIN CONTENT 14.9 G/DL (14-18); INSTRUMENT SERIAL # 11843; METHEMOGLOBIN 0.6 % (0-3); MODE CMV; O2 CONTENT 17.5 VOL% (18-24); OPERATOR ID 32193; PCO2 (CO2 TENSION) 67 MMHG (35-45); PO2 (O2 TENSION) 60 MMHG (79-93); SAMPLE Arterial; TIDAL VOLUME 500 ML; pH 7.15 (7.37-7.43)
[2017-02-20 20:26] LABS: MANUAL DIFF YES %
[2017-02-20 20:39] LABS: BUN (BLOOD UREA NITROGEN) 53 MG/DL (6-23); CALCIUM, SERUM 7.7 MG/DL (8.5-10.4); CHLORIDE, SERUM 105 MMOL/L (96-112); CO2 (CARBON DIOXIDE) 26 MMOL/L (24-34); CREATININE 2.34 MG/DL (0.70-1.30); FREE T4 1.34 NG/DL (0.76-1.46); GFR AFRICAN AMERICAN 36 ML/MIN (>=60); GFR NON AFRICAN AMERICAN 31 ML/MIN (>=60); GLUCOSE, SERUM 231 MG/DL (60-99); POTASSIUM, SERUM 4.7 MMOL/L (3.5-5.3); SODIUM, SERUM 141 MMOL/L (135-148); ULTRASENSITIVE TSH 0.874 MCIU/ML (0.358-3.740)
[2017-02-20 20:40] LABS: TROPONIN I 0.34 NG/ML (<0.05)
[2017-02-20 20:44] LABS: BAND NEUTROPHILS 14 %; IMMATURE GRANS ABSOLUTE (CALC) 1.13 10/3/uL (0.0-0.11); LYMPHOCYTES 2 %; LYMPHOCYTES ABSOLUTE (CALC) 0.76 10/3/uL (0.67-4.30); METAMYELOCYTES 2 %; MONOCYTES 5 %; MONOCYTES ABSOLUTE (CALC) 1.89 10/3/uL (0.21-1.20); MYELOCYTES 1 %; NEUTROPHILS ABSOLUTE (CALC) 34.02 10/3/uL (2.02-8.40); PLATELET ESTIMATE SLT INC (ADEQUATE); RBC MORPHOLOGY NORM (NORMAL); SEGMENTED NEUTROPHIL (0) 76 %; TOTAL NUCLEATED CELLS 100
[2017-02-20 21:04] LABS: PROCALCITONIN 3.57 ng/mL (<0.5)
[2017-02-20 21:13] LABS: BE (BASE EXCESS) -9.7 MEQ/L (0 +/- 2.5); HCO3 (ACTUAL BICARBONATE) 19.4 MEQ/L (23-27); HEMOBLOGIN CONTENT 14.6 G/DL (14-18); INSTRUMENT SERIAL # 11843; METHEMOGLOBIN 0.5 % (0-3); MODE CMV; O2 CONTENT 17.5 VOL% (18-24); OPERATOR ID 32193; PCO2 (CO2 TENSION) 55 MMHG (35-45); PO2 (O2 TENSION) 62 MMHG (79-93); SAMPLE Arterial; TIDAL VOLUME 500 ML; pH 7.16 (7.37-7.43)
[2017-02-20 21:42] LABS: BE (BASE EXCESS) -7.4 MEQ/L (0 +/- 2.5); CARBOXYHEMOGLOBIN 0.1 % (0-3); HCO3 (ACTUAL BICARBONATE) 21.8 MEQ/L (23-27); HEMOBLOGIN CONTENT 14.7 G/DL (14-18); INSTRUMENT SERIAL # 11843; METHEMOGLOBIN 0.5 % (0-3); MODE CMV; O2 CONTENT 19.2 VOL% (18-24); OPERATOR ID 32193; PCO2 (CO2 TENSION) 59 MMHG (35-45); PO2 (O2 TENSION) 81 MMHG (79-93); SAMPLE Arterial; TIDAL VOLUME 550 ML; pH 7.18 (7.37-7.43)
[2017-02-20 22:08] LABS: WBC (NOT ORDERED) (RFLEX) 0 (0-5)
[2017-02-20 22:17] LABS: ASCORBIC ACID (UR NOT ORDER) NEG (NEG); BILIRUBIN, URINE NEGATIVE (NEG); KETONE, URINE NEGATIVE (NEG); LEUKOCYTE ESTERASE(NOT OR NEG (NEG)
[2017-02-20 23:11] LABS: BE (BASE EXCESS) -4.3 MEQ/L (0 +/- 2.5); CARBOXYHEMOGLOBIN 0.3 % (0-3); HCO3 (ACTUAL BICARBONATE) 22.9 MEQ/L (23-27); HEMOBLOGIN CONTENT 14.1 G/DL (14-18); INSTRUMENT SERIAL # 11843; METHEMOGLOBIN 0.5 % (0-3); MODE CMV; O2 CONTENT 19.1 VOL% (18-24); OPERATOR ID 32193; PCO2 (CO2 TENSION) 50 MMHG (35-45); PO2 (O2 TENSION) 96 MMHG (79-93); SAMPLE Arterial; pH 7.28 (7.37-7.43)
[2017-02-20 23:12] LABS: TIDAL VOLUME 550 ML
[2017-02-21 03:25] LABS: HEMATOCRIT 40.3 % (40.0-51.0); HEMOGLOBIN 13.2 g/dL (13.6-17.8); MEAN CORPUS HGB CONC 32.8 g/dL (32.0-36.0); MEAN CORPUSCULAR HEMOGLOB 28.3 pg (26.0-34.0); MEAN CORPUSCULAR VOLUME 86.3 fL (80-100); MEAN PLATELET VOLUME 9.3 fL (9.2-13.0); PLATELET COUNT 423 10/3/uL (150-400); RBC DISTRIBUTION WIDTH 13.7 % (12.0-16.0); RED CELL COUNT 4.67 10/6/uL (4.7-6.1); WHITE BLOOD CELLS 48.3 10/3/uL (4.5-10.5)
[2017-02-21 03:26] LABS: MANUAL DIFF YES %
[2017-02-21 03:38] LABS: CALCIUM, SERUM 7.5 MG/DL (8.5-10.4); CHLORIDE, SERUM 105 MMOL/L (96-112); CO2 (CARBON DIOXIDE) 22 MMOL/L (24-34); CREATININE 2.66 MG/DL (0.70-1.30); GFR AFRICAN AMERICAN 31 ML/MIN (>=60); GFR NON AFRICAN AMERICAN 26 ML/MIN (>=60); POTASSIUM, SERUM 5.4 MMOL/L (3.5-5.3); SODIUM, SERUM 140 MMOL/L (135-148)
[2017-02-21 03:40] LABS: BUN (BLOOD UREA NITROGEN) 61 MG/DL (6-23); GLUCOSE, SERUM 307 MG/DL (60-99); PHOSPHORUS, SERUM 4.8 MG/DL (2.5-4.5)
[2017-02-21 04:07] LABS: BE (BASE EXCESS) -6.3 MEQ/L (0 +/- 2.5); CARBOXYHEMOGLOBIN 0.3 % (0-3); HCO3 (ACTUAL BICARBONATE) 20.4 MEQ/L (23-27); HEMOBLOGIN CONTENT 14.1 G/DL (14-18); INSTRUMENT SERIAL # 11843; METHEMOGLOBIN 0.6 % (0-3); MODE CMV; O2 CONTENT 19.1 VOL% (18-24); OPERATOR ID 32193; PCO2 (CO2 TENSION) 45 MMHG (35-45); PO2 (O2 TENSION) 97 MMHG (79-93); SAMPLE Arterial; TIDAL VOLUME 550 ML; pH 7.28 (7.37-7.43)
[2017-02-21 04:11] LABS: BAND NEUTROPHILS 14 %; LYMPHOCYTES 4 %; LYMPHOCYTES ABSOLUTE (CALC) 1.93 10/3/uL (0.67-4.30); MONOCYTES 3 %; MONOCYTES ABSOLUTE (CALC) 1.45 10/3/uL (0.21-1.20); NEUTROPHILS ABSOLUTE (CALC) 44.92 10/3/uL (2.02-8.40); PLATELET ESTIMATE SLT INC (ADEQUATE); RBC MORPHOLOGY NORM (NORMAL); SEGMENTED NEUTROPHIL (0) 79 %; TOTAL NUCLEATED CELLS 100
[2017-02-21 12:40] LABS: ALBUMIN 1.8 G/DL (3.5-5.0); CALCIUM, SERUM 7.3 MG/DL (8.5-10.4); CHLORIDE, SERUM 103 MMOL/L (96-112); CO2 (CARBON DIOXIDE) 23 MMOL/L (24-34); CREATININE 3.08 MG/DL (0.70-1.30); GFR AFRICAN AMERICAN 26 ML/MIN (>=60); GFR NON AFRICAN AMERICAN 22 ML/MIN (>=60); GLUCOSE, SERUM 330 MG/DL (60-99); PHOSPHORUS, SERUM 5.5 MG/DL (2.5-4.5); POTASSIUM, SERUM 5.8 MMOL/L (3.5-5.3); SODIUM, SERUM 138 MMOL/L (135-148)
[2017-02-21 12:41] LABS: BUN (BLOOD UREA NITROGEN) 66 MG/DL (6-23)
[2017-02-21 16:25] LABS: BE (BASE EXCESS) -3.6 MEQ/L (0 +/- 2.5); CARBOXYHEMOGLOBIN 0.3 % (0-3); HCO3 (ACTUAL BICARBONATE) 21.9 MEQ/L (23-27); HEMOBLOGIN CONTENT 13.1 G/DL (14-18); INSTRUMENT SERIAL # 11843; METHEMOGLOBIN 0.5 % (0-3); MODE CMV; OPERATOR ID 13715; PCO2 (CO2 TENSION) 42 MMHG (35-45); PO2 (O2 TENSION) 105 MMHG (79-93); SAMPLE Arterial; TIDAL VOLUME 550 ML; pH 7.34 (7.37-7.43)
[2017-02-21 17:07] LABS: A/G RATIO 0.5 (0.7-1.9); ALBUMIN 1.8 G/DL (3.5-5.0); ALKALINE PHOSPHATASE 73 U/L (45-117); BUN (BLOOD UREA NITROGEN) 68 MG/DL (6-23); CALCIUM, SERUM 7.2 MG/DL (8.5-10.4); CHLORIDE, SERUM 103 MMOL/L (96-112); CO2 (CARBON DIOXIDE) 23 MMOL/L (24-34); CREATININE 3.33 MG/DL (0.70-1.30); GFR AFRICAN AMERICAN 23 ML/MIN (>=60); GFR NON AFRICAN AMERICAN 20 ML/MIN (>=60); GLOBULIN 3.8 G/DL (2.5-4.1); GLUCOSE, SERUM 329 MG/DL (60-99); PHOSPHORUS, SERUM 5.3 MG/DL (2.5-4.5); POTASSIUM, SERUM 5.8 MMOL/L (3.5-5.3); SGOT(AST) 27 U/L (5-40); SGPT(ALT) 24 U/L (5-65); SODIUM, SERUM 138 MMOL/L (135-148); TOTAL BILIRUBIN 0.4 MG/DL (0-1.2); TOTAL PROTEIN 5.6 G/DL (6.0-8.5)
[2017-02-21 23:13] LABS: HEMOGLOBIN 11.8 g/dL (13.6-17.8); MEAN CORPUS HGB CONC 34.2 g/dL (32.0-36.0); MEAN CORPUSCULAR HEMOGLOB 29.4 pg (26.0-34.0); MEAN CORPUSCULAR VOLUME 85.8 fL (80-100); MEAN PLATELET VOLUME 8.8 fL (9.2-13.0); PLATELET COUNT 347 10/3/uL (150-400); RBC DISTRIBUTION WIDTH 13.7 % (12.0-16.0); RED CELL COUNT 4.02 10/6/uL (4.7-6.1)
[2017-02-21 23:14] LABS: HEMATOCRIT 34.5 % (40.0-51.0); MANUAL DIFF YES %; WHITE BLOOD CELLS 35.6 10/3/uL (4.5-10.5)
[2017-02-21 23:25] LABS: CHLORIDE, SERUM 105 MMOL/L (96-112); CO2 (CARBON DIOXIDE) 24 MMOL/L (24-34); GLUCOSE, SERUM 285 MG/DL (60-99); POTASSIUM, SERUM 4.7 MMOL/L (3.5-5.3); SODIUM, SERUM 139 MMOL/L (135-148)
[2017-02-21 23:28] LABS: BUN (BLOOD UREA NITROGEN) 56 MG/DL (6-23); CREATININE 2.83 MG/DL (0.70-1.30); GFR AFRICAN AMERICAN 28 ML/MIN (>=60); GFR NON AFRICAN AMERICAN 24 ML/MIN (>=60)
[2017-02-21 23:29] LABS: CALCIUM, SERUM 6.8 MG/DL (8.5-10.4)
[2017-02-21 23:32] LABS: BE (BASE EXCESS) -1.8 MEQ/L (0 +/- 2.5); INSTRUMENT SERIAL # 11843; PCO2 (CO2 TENSION) 38 MMHG (35-45); PO2 (O2 TENSION) 119 MMHG (79-93); pH 7.39 (7.37-7.43)
[2017-02-21 23:33] LABS: CARBOXYHEMOGLOBIN 0.1 % (0-3); HCO3 (ACTUAL BICARBONATE) 22.8 MEQ/L (23-27); HEMOBLOGIN CONTENT 12.3 G/DL (14-18); METHEMOGLOBIN 0.4 % (0-3); O2 CONTENT 17.1 VOL% (18-24); OPERATOR ID 32193; SAMPLE Arterial; TIDAL VOLUME 550 ML
[2017-02-21 23:49] LABS: BAND NEUTROPHILS 3 %; LYMPHOCYTES 3 %; LYMPHOCYTES ABSOLUTE (CALC) 1.07 10/3/uL (0.67-4.30); MONOCYTES 1 %; MONOCYTES ABSOLUTE (CALC) 0.36 10/3/uL (0.21-1.20); NEUTROPHILS ABSOLUTE (CALC) 34.18 10/3/uL (2.02-8.40); PLATELET ESTIMATE ADQ (ADEQUATE); RBC MORPHOLOGY NORM (NORMAL); SEGMENTED NEUTROPHIL (0) 93 %; TOTAL NUCLEATED CELLS 100
[2017-02-22 03:30] LABS: BE (BASE EXCESS) -0.5 MEQ/L (0 +/- 2.5); CARBOXYHEMOGLOBIN 0.3 % (0-3); HCO3 (ACTUAL BICARBONATE) 23.8 MEQ/L (23-27); INSTRUMENT SERIAL # 11843; METHEMOGLOBIN 0.5 % (0-3); MODE CMV; O2 CONTENT 16.7 VOL% (18-24); OPERATOR ID 16503; PCO2 (CO2 TENSION) 38 MMHG (35-45); PO2 (O2 TENSION) 136 MMHG (79-93); SAMPLE Arterial; TIDAL VOLUME 550 ML; pH 7.41 (7.37-7.43)
[2017-02-22 04:04] LABS: HEMATOCRIT 34.1 % (40.0-51.0); HEMOGLOBIN 11.3 g/dL (13.6-17.8); MEAN CORPUS HGB CONC 33.1 g/dL (32.0-36.0); MEAN CORPUSCULAR HEMOGLOB 28.5 pg (26.0-34.0); MEAN CORPUSCULAR VOLUME 86.1 fL (80-100); MEAN PLATELET VOLUME 9.1 fL (9.2-13.0); PLATELET COUNT 368 10/3/uL (150-400); RBC DISTRIBUTION WIDTH 13.9 % (12.0-16.0); RED CELL COUNT 3.96 10/6/uL (4.7-6.1)
[2017-02-22 04:08] LABS: MANUAL DIFF YES %; WHITE BLOOD CELLS 32.6 10/3/uL (4.5-10.5)
[2017-02-22 04:17] LABS: A/G RATIO 0.6 (0.7-1.9); ALKALINE PHOSPHATASE 68 U/L (45-117); CHLORIDE, SERUM 103 MMOL/L (96-112); CO2 (CARBON DIOXIDE) 25 MMOL/L (24-34); CREATININE 2.65 MG/DL (0.70-1.30); GFR AFRICAN AMERICAN 31 ML/MIN (>=60); GFR NON AFRICAN AMERICAN 27 ML/MIN (>=60); GLOBULIN 3.6 G/DL (2.5-4.1); GLUCOSE, SERUM 250 MG/DL (60-99); POTASSIUM, SERUM 4.6 MMOL/L (3.5-5.3); SGOT(AST) 21 U/L (5-40); SGPT(ALT) 23 U/L (5-65); SODIUM, SERUM 140 MMOL/L (135-148); TOTAL BILIRUBIN 0.4 MG/DL (0-1.2); TOTAL PROTEIN 5.6 G/DL (6.0-8.5)
[2017-02-22 04:22] LABS: BUN (BLOOD UREA NITROGEN) 50 MG/DL (6-23); CALCIUM, SERUM 6.7 MG/DL (8.5-10.4); PHOSPHORUS, SERUM 3.4 MG/DL (2.5-4.5)
[2017-02-22 05:22] LABS: LYMPHOCYTES 6 %; LYMPHOCYTES ABSOLUTE (CALC) 1.96 10/3/uL (0.67-4.30); MONOCYTES 2 %; MONOCYTES ABSOLUTE (CALC) 0.65 10/3/uL (0.21-1.20); NEUTROPHILS ABSOLUTE (CALC) 29.99 10/3/uL (2.02-8.40); SEGMENTED NEUTROPHIL (0) 92 %; TOTAL NUCLEATED CELLS 100
[2017-02-22 05:23] LABS: PLATELET ESTIMATE ADQ (ADEQUATE); RBC MORPHOLOGY NORM (NORMAL)
[2017-02-22 05:44] LABS: VANCOMYCIN TROUGH 21.4 MCG/ML (10.0-20.0)
[2017-02-22 06:00] LABS: PROCALCITONIN 5.18 ng/mL (<0.5)
[2017-02-22 09:41] LABS: BE (BASE EXCESS) -2.9 MEQ/L (0 +/- 2.5); CARBOXYHEMOGLOBIN 0.3 % (0-3); HCO3 (ACTUAL BICARBONATE) 21.6 MEQ/L (23-27); HEMOBLOGIN CONTENT 11.9 G/DL (14-18); INSTRUMENT SERIAL # 11843; METHEMOGLOBIN 0.3 % (0-3); MODE CMV; O2 CONTENT 16.8 VOL% (18-24); PCO2 (CO2 TENSION) 37 MMHG (35-45); PO2 (O2 TENSION) 183 MMHG (79-93); SAMPLE Arterial; TIDAL VOLUME 550 ML; pH 7.39 (7.37-7.43)
[2017-02-22 16:29] LABS: HEMATOCRIT 33.5 % (40.0-51.0); HEMOGLOBIN 10.8 g/dL (13.6-17.8); MEAN CORPUS HGB CONC 32.2 g/dL (32.0-36.0); MEAN CORPUSCULAR HEMOGLOB 27.8 pg (26.0-34.0); MEAN CORPUSCULAR VOLUME 86.1 fL (80-100); MEAN PLATELET VOLUME 9.3 fL (9.2-13.0); PLATELET COUNT 360 10/3/uL (150-400); RBC DISTRIBUTION WIDTH 14.2 % (12.0-16.0); RED CELL COUNT 3.89 10/6/uL (4.7-6.1)
[2017-02-22 16:33] LABS: MANUAL DIFF YES %; WHITE BLOOD CELLS 32.2 10/3/uL (4.5-10.5)
[2017-02-22 16:48] LABS: BUN (BLOOD UREA NITROGEN) 39 MG/DL (6-23); CALCIUM, SERUM 7.1 MG/DL (8.5-10.4); CHLORIDE, SERUM 99 MMOL/L (96-112); CO2 (CARBON DIOXIDE) 26 MMOL/L (24-34); CREATININE 2.17 MG/DL (0.70-1.30); GFR AFRICAN AMERICAN 39 ML/MIN (>=60); GFR NON AFRICAN AMERICAN 34 ML/MIN (>=60); GLUCOSE, SERUM 188 MG/DL (60-99); PHOSPHORUS, SERUM 3.2 MG/DL (2.5-4.5); POTASSIUM, SERUM 4.2 MMOL/L (3.5-5.3); SODIUM, SERUM 137 MMOL/L (135-148)
[2017-02-22 16:50] LABS: BAND NEUTROPHILS 4 %; LYMPHOCYTES 3 %; LYMPHOCYTES ABSOLUTE (CALC) 0.97 10/3/uL (0.67-4.30); MONOCYTES 3 %; MONOCYTES ABSOLUTE (CALC) 0.97 10/3/uL (0.21-1.20); NEUTROPHILS ABSOLUTE (CALC) 30.27 10/3/uL (2.02-8.40); SEGMENTED NEUTROPHIL (0) 90 %; TOTAL NUCLEATED CELLS 100
[2017-02-22 16:51] LABS: RBC MORPHOLOGY NORM (NORMAL); TOXIC GRANULATION 1+
[2017-02-22 23:08] LABS: HEMATOCRIT 32.5 % (40.0-51.0); HEMOGLOBIN 10.6 g/dL (13.6-17.8); MEAN CORPUS HGB CONC 32.6 g/dL (32.0-36.0); MEAN CORPUSCULAR HEMOGLOB 28.3 pg (26.0-34.0); MEAN CORPUSCULAR VOLUME 86.7 fL (80-100); MEAN PLATELET VOLUME 8.9 fL (9.2-13.0); PLATELET COUNT 338 10/3/uL (150-400); RBC DISTRIBUTION WIDTH 13.9 % (12.0-16.0); RED CELL COUNT 3.75 10/6/uL (4.7-6.1)
[2017-02-22 23:13] LABS: MANUAL DIFF YES %; WHITE BLOOD CELLS 28.6 10/3/uL (4.5-10.5)
[2017-02-22 23:20] LABS: CALCIUM, SERUM 7.1 MG/DL (8.5-10.4); CHLORIDE, SERUM 100 MMOL/L (96-112); CO2 (CARBON DIOXIDE) 27 MMOL/L (24-34); CREATININE 1.98 MG/DL (0.70-1.30); GFR AFRICAN AMERICAN 44 ML/MIN (>=60); GFR NON AFRICAN AMERICAN 38 ML/MIN (>=60); GLUCOSE, SERUM 158 MG/DL (60-99); POTASSIUM, SERUM 4.2 MMOL/L (3.5-5.3); SODIUM, SERUM 138 MMOL/L (135-148)
[2017-02-22 23:25] LABS: BUN (BLOOD UREA NITROGEN) 34 MG/DL (6-23)
[2017-02-22 23:42] LABS: LYMPHOCYTES 4 %; LYMPHOCYTES ABSOLUTE (CALC) 1.14 10/3/uL (0.67-4.30); MONOCYTES 4 %; MONOCYTES ABSOLUTE (CALC) 1.14 10/3/uL (0.21-1.20); NEUTROPHILS ABSOLUTE (CALC) 26.31 10/3/uL (2.02-8.40); PLATELET ESTIMATE ADQ (ADEQUATE); RBC MORPHOLOGY NORM (NORMAL); SEGMENTED NEUTROPHIL (0) 92 %; TOTAL NUCLEATED CELLS 100
[2017-02-23 04:09] LABS: BE (BASE EXCESS) 0.5 MEQ/L (0 +/- 2.5); CARBOXYHEMOGLOBIN 0.3 % (0-3); HCO3 (ACTUAL BICARBONATE) 25.7 MEQ/L (23-27); HEMOBLOGIN CONTENT 10.9 G/DL (14-18); INSTRUMENT SERIAL # 11843; METHEMOGLOBIN 0.4 % (0-3); MODE CMV; O2 CONTENT 15.3 VOL% (18-24); OPERATOR ID 16469; PCO2 (CO2 TENSION) 44 MMHG (35-45); PO2 (O2 TENSION) 148 MMHG (79-93); SAMPLE Arterial; TIDAL VOLUME 550 ML; pH 7.39 (7.37-7.43)
[2017-02-23 04:27] LABS: HEMATOCRIT 30.4 % (40.0-51.0); MEAN CORPUS HGB CONC 32.9 g/dL (32.0-36.0); MEAN CORPUSCULAR HEMOGLOB 28.6 pg (26.0-34.0); MEAN CORPUSCULAR VOLUME 86.9 fL (80-100); MEAN PLATELET VOLUME 8.9 fL (9.2-13.0); PLATELET COUNT 338 10/3/uL (150-400)
[2017-02-23 04:28] LABS: MANUAL DIFF YES %
[2017-02-23 04:35] LABS: BUN (BLOOD UREA NITROGEN) 31 MG/DL (6-23); CALCIUM, SERUM 7.3 MG/DL (8.5-10.4); CHLORIDE, SERUM 101 MMOL/L (96-112); CO2 (CARBON DIOXIDE) 27 MMOL/L (24-34); CREATININE 1.93 MG/DL (0.70-1.30); GFR AFRICAN AMERICAN 45 ML/MIN (>=60); GFR NON AFRICAN AMERICAN 39 ML/MIN (>=60); GLUCOSE, SERUM 168 MG/DL (60-99); PHOSPHORUS, SERUM 2.6 MG/DL (2.5-4.5); POTASSIUM, SERUM 4.2 MMOL/L (3.5-5.3); SODIUM, SERUM 139 MMOL/L (135-148)
[2017-02-23 04:55] LABS: LYMPHOCYTES 6 %; LYMPHOCYTES ABSOLUTE (CALC) 1.56 10/3/uL (0.67-4.30); MONOCYTES 1 %; MONOCYTES ABSOLUTE (CALC) 0.26 10/3/uL (0.21-1.20); NEUTROPHILS ABSOLUTE (CALC) 24.18 10/3/uL (2.02-8.40); SEGMENTED NEUTROPHIL (0) 93 %; TOTAL NUCLEATED CELLS 100
[2017-02-23 04:56] LABS: PLATELET ESTIMATE ADQ (ADEQUATE)
[2017-02-23 04:57] LABS: RBC MORPHOLOGY NORM (NORMAL)
[2017-02-23 14:27] LABS: BE (BASE EXCESS) 1.7 MEQ/L (0 +/- 2.5); CARBOXYHEMOGLOBIN 0.3 % (0-3); HCO3 (ACTUAL BICARBONATE) 26.6 MEQ/L (23-27); HEMOBLOGIN CONTENT 10.8 G/DL (14-18); INSTRUMENT SERIAL # 11843; METHEMOGLOBIN 0.4 % (0-3); MODE CMV; O2 CONTENT 15.2 VOL% (18-24); PCO2 (CO2 TENSION) 43 MMHG (35-45); PO2 (O2 TENSION) 152 MMHG (79-93); SAMPLE Arterial; pH 7.41 (7.37-7.43)
[2017-02-23 14:28] LABS: TIDAL VOLUME 550 ML
[2017-02-23 21:06] LABS: BASOPHILS 0.1 %; BASOPHILS ABSOLUTE 0.02 10/3/uL (0.0-0.16); EOSINOPHILS 1.8 %; EOSINOPHILS ABSOLUTE 0.38 10/3/uL (0.0-0.53); HEMATOCRIT 29.2 % (40.0-51.0); HEMOGLOBIN 9.5 g/dL (13.6-17.8); IMMATURE GRANULOCYTES 0.6 %; IMMATURE GRANULOCYTES ABSOLUTE 0.13 10/3/uL (0.0-0.11); LYMPHOCYTES 12.2 %; LYMPHOCYTES ABSOLUTE 2.53 10/3/uL (0.67-4.30); MEAN CORPUS HGB CONC 32.5 g/dL (32.0-36.0); MEAN CORPUSCULAR HEMOGLOB 28.3 pg (26.0-34.0); MEAN CORPUSCULAR VOLUME 86.9 fL (80-100); MONOCYTES 5.8 %; NEUTROPHILS 79.5 %; NEUTROPHILS ABSOLUTE 16.55 10/3/uL (2.02-8.40); PLATELET COUNT 357 10/3/uL (150-400); RBC DISTRIBUTION WIDTH 14.1 % (12.0-16.0); RED CELL COUNT 3.36 10/6/uL (4.7-6.1); WHITE BLOOD CELLS 20.8 10/3/uL (4.5-10.5)
[2017-02-23 21:09] LABS: MANUAL DIFF NO %
[2017-02-23 21:13] LABS: INTERNATIONAL NORMAL RATI 1.4 UNITS (-); PROTIME (NOT ORD) 16.7 SEC (12.0-14.5)
[2017-02-23 21:21] LABS: BUN (BLOOD UREA NITROGEN) 25 MG/DL (6-23); CALCIUM, SERUM 7.4 MG/DL (8.5-10.4); CHLORIDE, SERUM 99 MMOL/L (96-112); CO2 (CARBON DIOXIDE) 27 MMOL/L (24-34); CREATININE 1.73 MG/DL (0.70-1.30); GFR AFRICAN AMERICAN 51 ML/MIN (>=60); GFR NON AFRICAN AMERICAN 44 ML/MIN (>=60); GLUCOSE, SERUM 128 MG/DL (60-99); POTASSIUM, SERUM 3.7 MMOL/L (3.5-5.3); SODIUM, SERUM 138 MMOL/L (135-148)
[2017-02-24 04:33] LABS: BASOPHILS 0.1 %; BASOPHILS ABSOLUTE 0.02 10/3/uL (0.0-0.16); EOSINOPHILS 0.6 %; EOSINOPHILS ABSOLUTE 0.13 10/3/uL (0.0-0.53); HEMATOCRIT 29.2 % (40.0-51.0); HEMOGLOBIN 9.5 g/dL (13.6-17.8); IMMATURE GRANULOCYTES 0.6 %; IMMATURE GRANULOCYTES ABSOLUTE 0.13 10/3/uL (0.0-0.11); LYMPHOCYTES 7.9 %; LYMPHOCYTES ABSOLUTE 1.62 10/3/uL (0.67-4.30); MANUAL DIFF NO %; MEAN CORPUS HGB CONC 32.5 g/dL (32.0-36.0); MEAN CORPUSCULAR HEMOGLOB 28.3 pg (26.0-34.0); MEAN CORPUSCULAR VOLUME 86.9 fL (80-100); MEAN PLATELET VOLUME 9.3 fL (9.2-13.0); MONOCYTES ABSOLUTE 1.03 10/3/uL (0.21-1.20); NEUTROPHILS 85.8 %; NEUTROPHILS ABSOLUTE 17.54 10/3/uL (2.02-8.40); PLATELET COUNT 375 10/3/uL (150-400); RBC DISTRIBUTION WIDTH 14.1 % (12.0-16.0); RED CELL COUNT 3.36 10/6/uL (4.7-6.1); WHITE BLOOD CELLS 20.5 10/3/uL (4.5-10.5)
[2017-02-24 04:46] LABS: BUN (BLOOD UREA NITROGEN) 25 MG/DL (6-23); CALCIUM, SERUM 7.5 MG/DL (8.5-10.4); CHLORIDE, SERUM 98 MMOL/L (96-112); CO2 (CARBON DIOXIDE) 27 MMOL/L (24-34); CREATININE 1.57 MG/DL (0.70-1.30); GFR AFRICAN AMERICAN 58 ML/MIN (>=60); GFR NON AFRICAN AMERICAN 50 ML/MIN (>=60); GLUCOSE, SERUM 150 MG/DL (60-99); POTASSIUM, SERUM 4.1 MMOL/L (3.5-5.3); SODIUM, SERUM 137 MMOL/L (135-148)
[2017-02-24 10:25] LABS: BASOPHILS 0.1 %; BASOPHILS ABSOLUTE 0.02 10/3/uL (0.0-0.16); EOSINOPHILS 0.2 %; EOSINOPHILS ABSOLUTE 0.04 10/3/uL (0.0-0.53); HEMOGLOBIN 9.5 g/dL (13.6-17.8); IMMATURE GRANULOCYTES 0.9 %; IMMATURE GRANULOCYTES ABSOLUTE 0.17 10/3/uL (0.0-0.11); LYMPHOCYTES 6.1 %; LYMPHOCYTES ABSOLUTE 1.18 10/3/uL (0.67-4.30); MEAN CORPUS HGB CONC 32.8 g/dL (32.0-36.0); MEAN CORPUSCULAR HEMOGLOB 28.2 pg (26.0-34.0); MEAN CORPUSCULAR VOLUME 86.1 fL (80-100); MEAN PLATELET VOLUME 9.2 fL (9.2-13.0); MONOCYTES 5.1 %; MONOCYTES ABSOLUTE 0.99 10/3/uL (0.21-1.20); NEUTROPHILS 87.6 %; NEUTROPHILS ABSOLUTE 17.09 10/3/uL (2.02-8.40); PLATELET COUNT 352 10/3/uL (150-400); RBC DISTRIBUTION WIDTH 14.1 % (12.0-16.0); RED CELL COUNT 3.37 10/6/uL (4.7-6.1); WHITE BLOOD CELLS 19.5 10/3/uL (4.5-10.5)
[2017-02-24 10:26] LABS: MANUAL DIFF NO %
[2017-02-24 10:34] LABS: BUN (BLOOD UREA NITROGEN) 23 MG/DL (6-23); CALCIUM, SERUM 7.8 MG/DL (8.5-10.4); CHLORIDE, SERUM 98 MMOL/L (96-112); CO2 (CARBON DIOXIDE) 25 MMOL/L (24-34); CREATININE 1.61 MG/DL (0.70-1.30); GFR AFRICAN AMERICAN 56 ML/MIN (>=60); GFR NON AFRICAN AMERICAN 48 ML/MIN (>=60); GLUCOSE, SERUM 151 MG/DL (60-99); POTASSIUM, SERUM 4.3 MMOL/L (3.5-5.3); SODIUM, SERUM 135 MMOL/L (135-148)
[2017-02-24 12:05] LABS: BE (BASE EXCESS) 0.8 MEQ/L (0 +/- 2.5); CARBOXYHEMOGLOBIN 0.3 % (0-3); HCO3 (ACTUAL BICARBONATE) 26.6 MEQ/L (23-27); HEMOBLOGIN CONTENT 10.3 G/DL (14-18); INSTRUMENT SERIAL # 11843; METHEMOGLOBIN 0.5 % (0-3); MODE CMV; O2 CONTENT 14.2 VOL% (18-24); OPERATOR ID 23712; PCO2 (CO2 TENSION) 48 MMHG (35-45); PO2 (O2 TENSION) 108 MMHG (79-93); SAMPLE Arterial; TIDAL VOLUME 650 ML; pH 7.36 (7.37-7.43)
[2017-02-24 12:31] LABS: INSTRUMENT SERIAL # 11843; pH 7.35 (7.37-7.43)
[2017-02-24 12:32] LABS: CARBOXYHEMOGLOBIN 0.3 % (0-3); HCO3 (ACTUAL BICARBONATE) 28.3 MEQ/L (23-27); HEMOBLOGIN CONTENT 10.4 G/DL (14-18); METHEMOGLOBIN 0.3 % (0-3); MODE SIMV; O2 CONTENT 15.4 VOL% (18-24); OPERATOR ID 35798; PCO2 (CO2 TENSION) 52 MMHG (35-45); PO2 (O2 TENSION) 361 MMHG (79-93); SAMPLE Arterial; TIDAL VOLUME 550 ML
[2017-02-24 16:19] LABS: BASOPHILS 0.1 %; BASOPHILS ABSOLUTE 0.01 10/3/uL (0.0-0.16); EOSINOPHILS 0.1 %; EOSINOPHILS ABSOLUTE 0.02 10/3/uL (0.0-0.53); HEMATOCRIT 27.1 % (40.0-51.0); HEMOGLOBIN 9.2 g/dL (13.6-17.8); IMMATURE GRANULOCYTES 0.8 %; IMMATURE GRANULOCYTES ABSOLUTE 0.14 10/3/uL (0.0-0.11); LYMPHOCYTES 8.3 %; LYMPHOCYTES ABSOLUTE 1.46 10/3/uL (0.67-4.30); MEAN CORPUS HGB CONC 33.9 g/dL (32.0-36.0); MEAN CORPUSCULAR HEMOGLOB 28.9 pg (26.0-34.0); MEAN CORPUSCULAR VOLUME 85.2 fL (80-100); MEAN PLATELET VOLUME 9.1 fL (9.2-13.0); MONOCYTES ABSOLUTE 1.06 10/3/uL (0.21-1.20); NEUTROPHILS 84.7 %; NEUTROPHILS ABSOLUTE 14.87 10/3/uL (2.02-8.40); PLATELET COUNT 311 10/3/uL (150-400); RBC DISTRIBUTION WIDTH 14.2 % (12.0-16.0); RED CELL COUNT 3.18 10/6/uL (4.7-6.1); WHITE BLOOD CELLS 17.6 10/3/uL (4.5-10.5)
[2017-02-24 16:22] LABS: MANUAL DIFF NO %
[2017-02-24 16:30] LABS: BUN (BLOOD UREA NITROGEN) 22 MG/DL (6-23); CHLORIDE, SERUM 99 MMOL/L (96-112); CO2 (CARBON DIOXIDE) 27 MMOL/L (24-34); CREATININE 1.58 MG/DL (0.70-1.30); GFR AFRICAN AMERICAN 57 ML/MIN (>=60); GFR NON AFRICAN AMERICAN 50 ML/MIN (>=60); PHOSPHORUS, SERUM 2.7 MG/DL (2.5-4.5); POTASSIUM, SERUM 4.2 MMOL/L (3.5-5.3); SODIUM, SERUM 137 MMOL/L (135-148)
[2017-02-24 16:33] LABS: GLUCOSE, SERUM 119 MG/DL (60-99)
[2017-02-24 22:54] LABS: BASOPHILS 0.1 %; BASOPHILS ABSOLUTE 0.02 10/3/uL (0.0-0.16); EOSINOPHILS 0.6 %; EOSINOPHILS ABSOLUTE 0.11 10/3/uL (0.0-0.53); HEMATOCRIT 27.7 % (40.0-51.0); HEMOGLOBIN 8.9 g/dL (13.6-17.8); IMMATURE GRANULOCYTES ABSOLUTE 0.18 10/3/uL (0.0-0.11); LYMPHOCYTES 7.4 %; LYMPHOCYTES ABSOLUTE 1.34 10/3/uL (0.67-4.30); MANUAL DIFF NO %; MEAN CORPUS HGB CONC 32.1 g/dL (32.0-36.0); MEAN CORPUSCULAR HEMOGLOB 27.7 pg (26.0-34.0); MEAN CORPUSCULAR VOLUME 86.3 fL (80-100); MEAN PLATELET VOLUME 8.9 fL (9.2-13.0); MONOCYTES ABSOLUTE 1.45 10/3/uL (0.21-1.20); NEUTROPHILS 82.9 %; NEUTROPHILS ABSOLUTE 14.98 10/3/uL (2.02-8.40); PLATELET COUNT 294 10/3/uL (150-400); RBC DISTRIBUTION WIDTH 13.9 % (12.0-16.0); RED CELL COUNT 3.21 10/6/uL (4.7-6.1); WHITE BLOOD CELLS 18.1 10/3/uL (4.5-10.5)
[2017-02-24 23:01] LABS: BUN (BLOOD UREA NITROGEN) 20 MG/DL (6-23); CALCIUM, SERUM 7.8 MG/DL (8.5-10.4); CHLORIDE, SERUM 99 MMOL/L (96-112); CO2 (CARBON DIOXIDE) 27 MMOL/L (24-34); CREATININE 1.51 MG/DL (0.70-1.30); GFR AFRICAN AMERICAN 61 ML/MIN (>=60); GFR NON AFRICAN AMERICAN 52 ML/MIN (>=60); PHOSPHORUS, SERUM 2.3 MG/DL (2.5-4.5); POTASSIUM, SERUM 3.7 MMOL/L (3.5-5.3); SODIUM, SERUM 139 MMOL/L (135-148)
[2017-02-24 23:02] LABS: GLUCOSE, SERUM 86 MG/DL (60-99)
[2017-02-25 04:58] LABS: BASOPHILS 0.1 %; BASOPHILS ABSOLUTE 0.01 10/3/uL (0.0-0.16); EOSINOPHILS 0.6 %; EOSINOPHILS ABSOLUTE 0.08 10/3/uL (0.0-0.53); HEMATOCRIT 26.4 % (40.0-51.0); HEMOGLOBIN 8.7 g/dL (13.6-17.8); IMMATURE GRANULOCYTES 0.6 %; IMMATURE GRANULOCYTES ABSOLUTE 0.09 10/3/uL (0.0-0.11); MEAN CORPUSCULAR HEMOGLOB 28.4 pg (26.0-34.0); MEAN CORPUSCULAR VOLUME 86.3 fL (80-100); MEAN PLATELET VOLUME 9.2 fL (9.2-13.0); MONOCYTES 6.8 %; MONOCYTES ABSOLUTE 0.96 10/3/uL (0.21-1.20); NEUTROPHILS 79.9 %; NEUTROPHILS ABSOLUTE 11.36 10/3/uL (2.02-8.40); PLATELET COUNT 289 10/3/uL (150-400); RBC DISTRIBUTION WIDTH 14.2 % (12.0-16.0); RED CELL COUNT 3.06 10/6/uL (4.7-6.1); WHITE BLOOD CELLS 14.2 10/3/uL (4.5-10.5)
[2017-02-25 05:03] LABS: A/G RATIO 0.7 (0.7-1.9); ALKALINE PHOSPHATASE 70 U/L (45-117); BUN (BLOOD UREA NITROGEN) 19 MG/DL (6-23); CALCIUM, SERUM 8.3 MG/DL (8.5-10.4); CHLORIDE, SERUM 101 MMOL/L (96-112); CO2 (CARBON DIOXIDE) 29 MMOL/L (24-34); CREATININE 1.56 MG/DL (0.70-1.30); GFR AFRICAN AMERICAN 58 ML/MIN (>=60); GFR NON AFRICAN AMERICAN 50 ML/MIN (>=60); GLOBULIN 3.6 G/DL (2.5-4.1); GLUCOSE, SERUM 98 MG/DL (60-99); MANUAL DIFF NO %; POTASSIUM, SERUM 3.9 MMOL/L (3.5-5.3); SGOT(AST) 15 U/L (5-40); SGPT(ALT) 16 U/L (5-65); SODIUM, SERUM 138 MMOL/L (135-148); TOTAL BILIRUBIN 0.6 MG/DL (0-1.2); TOTAL PROTEIN 6.1 G/DL (6.0-8.5)
[2017-02-25 05:04] LABS: ALBUMIN 2.5 G/DL (3.5-5.0)
[2017-02-25 06:45] LABS: PHOSPHORUS, SERUM 2.8 MG/DL (2.5-4.5)
[2017-02-25 07:21] LABS: BE (BASE EXCESS) 3.7 MEQ/L (0 +/- 2.5); CARBOXYHEMOGLOBIN 0.3 % (0-3); HCO3 (ACTUAL BICARBONATE) 28.9 MEQ/L (23-27); HEMOBLOGIN CONTENT 9.8 G/DL (14-18); INSTRUMENT SERIAL # 11843; METHEMOGLOBIN 0.4 % (0-3); PCO2 (CO2 TENSION) 47 MMHG (35-45); PO2 (O2 TENSION) 91 MMHG (79-93); pH 7.41 (7.37-7.43)
[2017-02-25 07:22] LABS: DEVICE NC; O2 CONTENT 13.3 VOL% (18-24); OPERATOR ID 32214; SAMPLE Arterial
[2017-02-25 10:21] LABS: BASOPHILS 0.1 %; BASOPHILS ABSOLUTE 0.01 10/3/uL (0.0-0.16); EOSINOPHILS 1.2 %; HEMATOCRIT 27.5 % (40.0-51.0); HEMOGLOBIN 9.2 g/dL (13.6-17.8); IMMATURE GRANULOCYTES 0.9 %; IMMATURE GRANULOCYTES ABSOLUTE 0.15 10/3/uL (0.0-0.11); LYMPHOCYTES 7.9 %; LYMPHOCYTES ABSOLUTE 1.28 10/3/uL (0.67-4.30); MEAN CORPUS HGB CONC 33.5 g/dL (32.0-36.0); MEAN CORPUSCULAR HEMOGLOB 28.5 pg (26.0-34.0); MEAN CORPUSCULAR VOLUME 85.1 fL (80-100); MEAN PLATELET VOLUME 8.9 fL (9.2-13.0); MONOCYTES 9.1 %; MONOCYTES ABSOLUTE 1.47 10/3/uL (0.21-1.20); NEUTROPHILS 80.8 %; NEUTROPHILS ABSOLUTE 13.04 10/3/uL (2.02-8.40); PLATELET COUNT 286 10/3/uL (150-400); RBC DISTRIBUTION WIDTH 14.2 % (12.0-16.0); RED CELL COUNT 3.23 10/6/uL (4.7-6.1); WHITE BLOOD CELLS 16.2 10/3/uL (4.5-10.5)
[2017-02-25 10:22] LABS: MANUAL DIFF NO %
[2017-02-25 10:34] LABS: BUN (BLOOD UREA NITROGEN) 19 MG/DL (6-23); CALCIUM, SERUM 8.4 MG/DL (8.5-10.4); CHLORIDE, SERUM 99 MMOL/L (96-112); CO2 (CARBON DIOXIDE) 28 MMOL/L (24-34); CREATININE 1.55 MG/DL (0.70-1.30); GFR AFRICAN AMERICAN 59 ML/MIN (>=60); GFR NON AFRICAN AMERICAN 51 ML/MIN (>=60); GLUCOSE, SERUM 87 MG/DL (60-99); PHOSPHORUS, SERUM 2.7 MG/DL (2.5-4.5); POTASSIUM, SERUM 3.8 MMOL/L (3.5-5.3); SODIUM, SERUM 139 MMOL/L (135-148)
[2017-02-25 16:27] LABS: BASOPHILS 0.1 %; BASOPHILS ABSOLUTE 0.02 10/3/uL (0.0-0.16); EOSINOPHILS ABSOLUTE 0.14 10/3/uL (0.0-0.53); HEMOGLOBIN 7.7 g/dL (13.6-17.8); IMMATURE GRANULOCYTES ABSOLUTE 0.13 10/3/uL (0.0-0.11); LYMPHOCYTES 11.9 %; LYMPHOCYTES ABSOLUTE 1.61 10/3/uL (0.67-4.30); MANUAL DIFF NO %; MEAN CORPUS HGB CONC 33.5 g/dL (32.0-36.0); MEAN CORPUSCULAR HEMOGLOB 28.6 pg (26.0-34.0); MEAN CORPUSCULAR VOLUME 85.5 fL (80-100); MEAN PLATELET VOLUME 9.1 fL (9.2-13.0); MONOCYTES 7.9 %; MONOCYTES ABSOLUTE 1.07 10/3/uL (0.21-1.20); NEUTROPHILS 78.1 %; NEUTROPHILS ABSOLUTE 10.58 10/3/uL (2.02-8.40); PLATELET COUNT 272 10/3/uL (150-400); RBC DISTRIBUTION WIDTH 14.3 % (12.0-16.0); RED CELL COUNT 2.69 10/6/uL (4.7-6.1); WHITE BLOOD CELLS 13.6 10/3/uL (4.5-10.5)
[2017-02-25 16:32] LABS: BUN (BLOOD UREA NITROGEN) 19 MG/DL (6-23); CHLORIDE, SERUM 100 MMOL/L (96-112); CO2 (CARBON DIOXIDE) 30 MMOL/L (24-34); CREATININE 1.62 MG/DL (0.70-1.30); GFR AFRICAN AMERICAN 56 ML/MIN (>=60); GFR NON AFRICAN AMERICAN 48 ML/MIN (>=60); PHOSPHORUS, SERUM 2.9 MG/DL (2.5-4.5); POTASSIUM, SERUM 3.9 MMOL/L (3.5-5.3); SODIUM, SERUM 139 MMOL/L (135-148)
[2017-02-25 16:33] LABS: GLUCOSE, SERUM 131 MG/DL (60-99)
[2017-02-26 03:50] LABS: BASOPHILS 0.2 %; BASOPHILS ABSOLUTE 0.03 10/3/uL (0.0-0.16); EOSINOPHILS 1.4 %; EOSINOPHILS ABSOLUTE 0.18 10/3/uL (0.0-0.53); HEMATOCRIT 21.4 % (40.0-51.0); IMMATURE GRANULOCYTES 1.1 %; IMMATURE GRANULOCYTES ABSOLUTE 0.14 10/3/uL (0.0-0.11); LYMPHOCYTES 11.4 %; LYMPHOCYTES ABSOLUTE 1.44 10/3/uL (0.67-4.30); MEAN CORPUS HGB CONC 32.7 g/dL (32.0-36.0); MEAN CORPUSCULAR HEMOGLOB 28.2 pg (26.0-34.0); MEAN CORPUSCULAR VOLUME 86.3 fL (80-100); MONOCYTES 7.6 %; MONOCYTES ABSOLUTE 0.96 10/3/uL (0.21-1.20); NEUTROPHILS 78.3 %; NEUTROPHILS ABSOLUTE 9.83 10/3/uL (2.02-8.40); PLATELET COUNT 255 10/3/uL (150-400); RBC DISTRIBUTION WIDTH 14.3 % (12.0-16.0); RED CELL COUNT 2.48 10/6/uL (4.7-6.1); WHITE BLOOD CELLS 12.6 10/3/uL (4.5-10.5)
[2017-02-26 03:53] LABS: MANUAL DIFF NO %
[2017-02-26 03:57] LABS: INTERNATIONAL NORMAL RATI 1.5 UNITS (-); PROTIME (NOT ORD) 18.1 SEC (12.0-14.5)
[2017-02-26 04:04] LABS: ALBUMIN 2.4 G/DL (3.5-5.0); CHLORIDE, SERUM 100 MMOL/L (96-112); CO2 (CARBON DIOXIDE) 29 MMOL/L (24-34); DIRECT BILIRUBIN 0.2 MG/DL (0.0-0.4); GLUCOSE, SERUM 141 MG/DL (60-99); INDIRECT BILIRUBIN(NOT ORDER) 0.3 MG/DL (0.1-0.9); POTASSIUM, SERUM 4.1 MMOL/L (3.5-5.3); SGOT(AST) 12 U/L (5-40); SGPT(ALT) 18 U/L (5-65); SODIUM, SERUM 141 MMOL/L (135-148); TOTAL BILIRUBIN 0.5 MG/DL (0-1.2); TOTAL PROTEIN 5.5 G/DL (6.0-8.5)
[2017-02-26 04:06] LABS: ALKALINE PHOSPHATASE 54 U/L (45-117); BUN (BLOOD UREA NITROGEN) 26 MG/DL (6-23); CREATININE 2.28 MG/DL (0.70-1.30); GFR AFRICAN AMERICAN 37 ML/MIN (>=60); GFR NON AFRICAN AMERICAN 32 ML/MIN (>=60); PHOSPHORUS, SERUM 3.8 MG/DL (2.5-4.5)
[2017-02-27 06:50] LABS: BASOPHILS 0.3 %; BASOPHILS ABSOLUTE 0.05 10/3/uL (0.0-0.16); EOSINOPHILS 3.7 %; EOSINOPHILS ABSOLUTE 0.62 10/3/uL (0.0-0.53); HEMATOCRIT 26.2 % (40.0-51.0); HEMOGLOBIN 8.8 g/dL (13.6-17.8); IMMATURE GRANULOCYTES 1.6 %; IMMATURE GRANULOCYTES ABSOLUTE 0.27 10/3/uL (0.0-0.11); LYMPHOCYTES 14.3 %; LYMPHOCYTES ABSOLUTE 2.39 10/3/uL (0.67-4.30); MANUAL DIFF NO %; MEAN CORPUS HGB CONC 33.6 g/dL (32.0-36.0); MEAN CORPUSCULAR HEMOGLOB 28.5 pg (26.0-34.0); MEAN CORPUSCULAR VOLUME 84.8 fL (80-100); MEAN PLATELET VOLUME 8.6 fL (9.2-13.0); MONOCYTES 8.6 %; MONOCYTES ABSOLUTE 1.43 10/3/uL (0.21-1.20); NEUTROPHILS 71.5 %; NEUTROPHILS ABSOLUTE 11.91 10/3/uL (2.02-8.40); PLATELET COUNT 277 10/3/uL (150-400); RBC DISTRIBUTION WIDTH 15.4 % (12.0-16.0); RED CELL COUNT 3.09 10/6/uL (4.7-6.1); WHITE BLOOD CELLS 16.7 10/3/uL (4.5-10.5)
[2017-02-27 07:05] LABS: CHLORIDE, SERUM 103 MMOL/L (96-112); CO2 (CARBON DIOXIDE) 27 MMOL/L (24-34); POTASSIUM, SERUM 3.8 MMOL/L (3.5-5.3); SODIUM, SERUM 141 MMOL/L (135-148)
[2017-02-27 07:06] LABS: BUN (BLOOD UREA NITROGEN) 39 MG/DL (6-23); CREATININE 3.87 MG/DL (0.70-1.30); GFR AFRICAN AMERICAN 19 ML/MIN (>=60); GFR NON AFRICAN AMERICAN 17 ML/MIN (>=60); GLUCOSE, SERUM 85 MG/DL (60-99)
[2017-02-28 07:15] LABS: BASOPHILS 0.4 %; BASOPHILS ABSOLUTE 0.05 10/3/uL (0.0-0.16); EOSINOPHILS 3.7 %; EOSINOPHILS ABSOLUTE 0.48 10/3/uL (0.0-0.53); HEMATOCRIT 24.2 % (40.0-51.0); HEMOGLOBIN 8.1 g/dL (13.6-17.8); IMMATURE GRANULOCYTES 1.1 %; IMMATURE GRANULOCYTES ABSOLUTE 0.14 10/3/uL (0.0-0.11); LYMPHOCYTES 15.7 %; LYMPHOCYTES ABSOLUTE 2.06 10/3/uL (0.67-4.30); MEAN CORPUS HGB CONC 33.5 g/dL (32.0-36.0); MEAN CORPUSCULAR VOLUME 86.7 fL (80-100); MONOCYTES 8.6 %; MONOCYTES ABSOLUTE 1.13 10/3/uL (0.21-1.20); NEUTROPHILS 70.5 %; NEUTROPHILS ABSOLUTE 9.29 10/3/uL (2.02-8.40); PLATELET COUNT 275 10/3/uL (150-400); RBC DISTRIBUTION WIDTH 15.4 % (12.0-16.0); RED CELL COUNT 2.79 10/6/uL (4.7-6.1); WHITE BLOOD CELLS 13.2 10/3/uL (4.5-10.5)
[2017-02-28 07:17] LABS: MANUAL DIFF NO %
[2017-02-28 07:34] LABS: ALBUMIN 2.2 G/DL (3.5-5.0); BUN (BLOOD UREA NITROGEN) 48 MG/DL (6-23); CHLORIDE, SERUM 104 MMOL/L (96-112); CO2 (CARBON DIOXIDE) 25 MMOL/L (24-34); CREATININE 4.94 MG/DL (0.70-1.30); GFR AFRICAN AMERICAN 14 ML/MIN (>=60); GFR NON AFRICAN AMERICAN 12 ML/MIN (>=60); GLUCOSE, SERUM 102 MG/DL (60-99); PHOSPHORUS, SERUM 4.8 MG/DL (2.5-4.5); POTASSIUM, SERUM 3.9 MMOL/L (3.5-5.3); SODIUM, SERUM 142 MMOL/L (135-148)
[2017-03-01 06:22] LABS: BASOPHILS 0.4 %; BASOPHILS ABSOLUTE 0.05 10/3/uL (0.0-0.16); EOSINOPHILS 2.5 %; HEMATOCRIT 24.9 % (40.0-51.0); HEMOGLOBIN 8.2 g/dL (13.6-17.8); IMMATURE GRANULOCYTES 1.1 %; IMMATURE GRANULOCYTES ABSOLUTE 0.13 10/3/uL (0.0-0.11); LYMPHOCYTES 12.6 %; LYMPHOCYTES ABSOLUTE 1.54 10/3/uL (0.67-4.30); MEAN CORPUS HGB CONC 32.9 g/dL (32.0-36.0); MEAN CORPUSCULAR HEMOGLOB 28.6 pg (26.0-34.0); MEAN CORPUSCULAR VOLUME 86.8 fL (80-100); MEAN PLATELET VOLUME 9.1 fL (9.2-13.0); MONOCYTES 11.5 %; NEUTROPHILS 71.9 %; NEUTROPHILS ABSOLUTE 8.78 10/3/uL (2.02-8.40); PLATELET COUNT 264 10/3/uL (150-400); RBC DISTRIBUTION WIDTH 15.6 % (12.0-16.0); RED CELL COUNT 2.87 10/6/uL (4.7-6.1); WHITE BLOOD CELLS 12.2 10/3/uL (4.5-10.5)
[2017-03-01 06:24] LABS: MANUAL DIFF NO %
[2017-03-01 06:42] LABS: A/G RATIO 0.6 (0.7-1.9); ALBUMIN 2.3 G/DL (3.5-5.0); CALCIUM, SERUM 8.3 MG/DL (8.5-10.4); CHLORIDE, SERUM 105 MMOL/L (96-112); CHOL/HDL RATIO(NOT ORDER) 3.5 (0-5); CHOLESTEROL 133 MG/DL (< 200); CO2 (CARBON DIOXIDE) 26 MMOL/L (24-34); CREATININE 4.62 MG/DL (0.70-1.30); GFR AFRICAN AMERICAN 16 ML/MIN (>=60); GFR NON AFRICAN AMERICAN 14 ML/MIN (>=60); GLOBULIN 3.6 G/DL (2.5-4.1); HDL CHOLESTEROL 38 MG/DL (> 39); LDL CHOLESTEROL 54 MG/DL (< 130); NON-HDL CHOLESTEROL 95 MG/DL (< 160); POTASSIUM, SERUM 4.2 MMOL/L (3.5-5.3); SGOT(AST) 10 U/L (5-40); SGPT(ALT) 14 U/L (5-65); SODIUM, SERUM 142 MMOL/L (135-148); TOTAL BILIRUBIN 0.5 MG/DL (0-1.2); TOTAL PROTEIN 5.9 G/DL (6.0-8.5); TRIGLYCERIDE 206 MG/DL (< 150)
[2017-03-01 06:43] LABS: ALKALINE PHOSPHATASE 77 U/L (45-117); BUN (BLOOD UREA NITROGEN) 40 MG/DL (6-23); GLUCOSE, SERUM 190 MG/DL (60-99)
[2017-03-02 10:57] LABS: HEPATITIS B CORE AB IGM NON-REACTIVE (NON-REAC); HEPATITIS C ANTIBODY NON-REACTIVE (NON-REACT)
[2017-03-02 11:04] LABS: HEP A ANTIBODY IGM NON-REACTIVE (NON-REACT)
[2017-03-02 11:36] LABS: HEPATITIS B SURFACE ANTIGEN NON-REACTIVE (NON-REACT)
[2017-03-02 12:05] LABS: HIV COMBO NON-REACTIVE (NON REAC)
[2017-03-02 20:48] LABS: BASOPHILS 0.5 %; BASOPHILS ABSOLUTE 0.04 10/3/uL (0.0-0.16); EOSINOPHILS 1.4 %; EOSINOPHILS ABSOLUTE 0.12 10/3/uL (0.0-0.53); HEMOGLOBIN 9.1 g/dL (13.6-17.8); IMMATURE GRANULOCYTES 0.7 %; IMMATURE GRANULOCYTES ABSOLUTE 0.06 10/3/uL (0.0-0.11); LYMPHOCYTES 19.8 %; LYMPHOCYTES ABSOLUTE 1.66 10/3/uL (0.67-4.30); MANUAL DIFF NO %; MEAN CORPUS HGB CONC 33.7 g/dL (32.0-36.0); MEAN CORPUSCULAR HEMOGLOB 28.9 pg (26.0-34.0); MEAN CORPUSCULAR VOLUME 85.7 fL (80-100); MEAN PLATELET VOLUME 9.2 fL (9.2-13.0); MONOCYTES 11.7 %; MONOCYTES ABSOLUTE 0.98 10/3/uL (0.21-1.20); NEUTROPHILS 65.9 %; NEUTROPHILS ABSOLUTE 5.51 10/3/uL (2.02-8.40); PLATELET COUNT 262 10/3/uL (150-400); RBC DISTRIBUTION WIDTH 15.5 % (12.0-16.0); RED CELL COUNT 3.15 10/6/uL (4.7-6.1); WHITE BLOOD CELLS 8.4 10/3/uL (4.5-10.5)
[2017-03-02 21:14] LABS: A/G RATIO 0.7 (0.7-1.9); ALBUMIN 2.7 G/DL (3.5-5.0); ALKALINE PHOSPHATASE 84 U/L (45-117); CALCIUM, SERUM 8.9 MG/DL (8.5-10.4); CHLORIDE, SERUM 106 MMOL/L (96-112); CO2 (CARBON DIOXIDE) 27 MMOL/L (24-34); POTASSIUM, SERUM 4.3 MMOL/L (3.5-5.3); SGOT(AST) 17 U/L (5-40); SGPT(ALT) 17 U/L (5-65); SODIUM, SERUM 141 MMOL/L (135-148); TOTAL BILIRUBIN 0.6 MG/DL (0-1.2); TOTAL PROTEIN 6.7 G/DL (6.0-8.5)
[2017-03-02 21:15] LABS: BUN (BLOOD UREA NITROGEN) 31 MG/DL (6-23); CREATININE 3.91 MG/DL (0.70-1.30); GFR AFRICAN AMERICAN 19 ML/MIN (>=60); GFR NON AFRICAN AMERICAN 17 ML/MIN (>=60); GLUCOSE, SERUM 125 MG/DL (60-99); PHOSPHORUS, SERUM 2.5 MG/DL (2.5-4.5)
[2017-03-03 05:00] LABS: BASOPHILS 0.9 %; BASOPHILS ABSOLUTE 0.07 10/3/uL (0.0-0.16); EOSINOPHILS 2.1 %; EOSINOPHILS ABSOLUTE 0.16 10/3/uL (0.0-0.53); HEMOGLOBIN 8.6 g/dL (13.6-17.8); IMMATURE GRANULOCYTES 0.4 %; IMMATURE GRANULOCYTES ABSOLUTE 0.03 10/3/uL (0.0-0.11); LYMPHOCYTES 24.7 %; LYMPHOCYTES ABSOLUTE 1.89 10/3/uL (0.67-4.30); MEAN CORPUS HGB CONC 33.1 g/dL (32.0-36.0); MEAN CORPUSCULAR VOLUME 87.5 fL (80-100); MONOCYTES 10.8 %; MONOCYTES ABSOLUTE 0.83 10/3/uL (0.21-1.20); NEUTROPHILS 61.1 %; NEUTROPHILS ABSOLUTE 4.68 10/3/uL (2.02-8.40); PLATELET COUNT 268 10/3/uL (150-400); RBC DISTRIBUTION WIDTH 15.4 % (12.0-16.0); RED CELL COUNT 2.97 10/6/uL (4.7-6.1); WHITE BLOOD CELLS 7.7 10/3/uL (4.5-10.5)
[2017-03-03 05:01] LABS: MANUAL DIFF NO %
[2017-03-03 05:20] LABS: ALBUMIN 2.4 G/DL (3.5-5.0); BUN (BLOOD UREA NITROGEN) 33 MG/DL (6-23); CALCIUM, SERUM 8.3 MG/DL (8.5-10.4); CHLORIDE, SERUM 107 MMOL/L (96-112); CO2 (CARBON DIOXIDE) 25 MMOL/L (24-34); CREATININE 4.05 MG/DL (0.70-1.30); GFR AFRICAN AMERICAN 18 ML/MIN (>=60); GFR NON AFRICAN AMERICAN 16 ML/MIN (>=60); PHOSPHORUS, SERUM 3.1 MG/DL (2.5-4.5); POTASSIUM, SERUM 3.9 MMOL/L (3.5-5.3); SODIUM, SERUM 144 MMOL/L (135-148)
[2017-03-03 05:22] LABS: GLUCOSE, SERUM 95 MG/DL (60-99)
[2017-03-04 05:12] LABS: ALBUMIN 2.4 G/DL (3.5-5.0); CALCIUM, SERUM 8.5 MG/DL (8.5-10.4); CHLORIDE, SERUM 105 MMOL/L (96-112); CO2 (CARBON DIOXIDE) 25 MMOL/L (24-34); PHOSPHORUS, SERUM 3.4 MG/DL (2.5-4.5); POTASSIUM, SERUM 3.9 MMOL/L (3.5-5.3); SODIUM, SERUM 141 MMOL/L (135-148)
[2017-03-04 05:13] LABS: BUN (BLOOD UREA NITROGEN) 38 MG/DL (6-23); CREATININE 4.55 MG/DL (0.70-1.30); GFR AFRICAN AMERICAN 16 ML/MIN (>=60); GFR NON AFRICAN AMERICAN 14 ML/MIN (>=60); GLUCOSE, SERUM 150 MG/DL (60-99)
[2017-03-04 05:19] LABS: HEMATOCRIT 25.8 % (40.0-51.0); HEMOGLOBIN 8.3 g/dL (13.6-17.8); MANUAL DIFF YES %; MEAN CORPUS HGB CONC 32.2 g/dL (32.0-36.0); MEAN CORPUSCULAR HEMOGLOB 28.2 pg (26.0-34.0); MEAN CORPUSCULAR VOLUME 87.8 fL (80-100); MEAN PLATELET VOLUME 9.3 fL (9.2-13.0); PLATELET COUNT 258 10/3/uL (150-400); RBC DISTRIBUTION WIDTH 15.6 % (12.0-16.0); RED CELL COUNT 2.94 10/6/uL (4.7-6.1)
[2017-03-04 06:06] LABS: IMMATURE GRANS ABSOLUTE (CALC) 0.08 10/3/uL (0.0-0.11); LYMPHOCYTES 25 %; MONOCYTES 5 %; MYELOCYTES 1 %; NEUTROPHILS ABSOLUTE (CALC) 5.52 10/3/uL (2.02-8.40); SEGMENTED NEUTROPHIL (0) 69 %; TOTAL NUCLEATED CELLS 100
[2017-03-04 06:07] LABS: PLATELET ESTIMATE ADQ (ADEQUATE); RBC MORPHOLOGY NORM (NORMAL)
[2017-03-05 04:29] LABS: BASOPHILS 1.1 %; EOSINOPHILS 3.9 %; EOSINOPHILS ABSOLUTE 0.35 10/3/uL (0.0-0.53); HEMATOCRIT 26.6 % (40.0-51.0); HEMOGLOBIN 8.6 g/dL (13.6-17.8); IMMATURE GRANULOCYTES 0.3 %; IMMATURE GRANULOCYTES ABSOLUTE 0.03 10/3/uL (0.0-0.11); LYMPHOCYTES 30.2 %; LYMPHOCYTES ABSOLUTE 2.73 10/3/uL (0.67-4.30); MEAN CORPUS HGB CONC 32.3 g/dL (32.0-36.0); MEAN CORPUSCULAR HEMOGLOB 28.2 pg (26.0-34.0); MEAN CORPUSCULAR VOLUME 87.2 fL (80-100); MONOCYTES 11.3 %; MONOCYTES ABSOLUTE 1.02 10/3/uL (0.21-1.20); NEUTROPHILS 53.2 %; PLATELET COUNT 255 10/3/uL (150-400); RBC DISTRIBUTION WIDTH 15.9 % (12.0-16.0); RED CELL COUNT 3.05 10/6/uL (4.7-6.1)
[2017-03-05 04:34] LABS: MANUAL DIFF NO %
[2017-03-05 04:36] LABS: INTERNATIONAL NORMAL RATI 1.4 UNITS (-); PROTIME (NOT ORD) 17.1 SEC (12.0-14.5)
[2017-03-05 04:56] LABS: BUN (BLOOD UREA NITROGEN) 38 MG/DL (6-23); CALCIUM, SERUM 8.7 MG/DL (8.5-10.4); CHLORIDE, SERUM 106 MMOL/L (96-112); CHOL/HDL RATIO(NOT ORDER) 3.8 (0-5); CHOLESTEROL 137 MG/DL (< 200); CO2 (CARBON DIOXIDE) 25 MMOL/L (24-34); CREATININE 4.71 MG/DL (0.70-1.30); GFR AFRICAN AMERICAN 15 ML/MIN (>=60); GFR NON AFRICAN AMERICAN 13 ML/MIN (>=60); HDL CHOLESTEROL 36 MG/DL (> 39); LDL CHOLESTEROL 56 MG/DL (< 130); NON-HDL CHOLESTEROL 101 MG/DL (< 160); SODIUM, SERUM 142 MMOL/L (135-148); TRIGLYCERIDE 229 MG/DL (< 150)
[2017-03-05 04:58] LABS: GLUCOSE, SERUM 96 MG/DL (60-99)
[2017-03-06 05:30] LABS: BASOPHILS 0.8 %; BASOPHILS ABSOLUTE 0.06 10/3/uL (0.0-0.16); EOSINOPHILS 4.4 %; EOSINOPHILS ABSOLUTE 0.35 10/3/uL (0.0-0.53); HEMATOCRIT 25.2 % (40.0-51.0); HEMOGLOBIN 8.2 g/dL (13.6-17.8); IMMATURE GRANULOCYTES 0.1 %; IMMATURE GRANULOCYTES ABSOLUTE 0.01 10/3/uL (0.0-0.11); LYMPHOCYTES 30.4 %; LYMPHOCYTES ABSOLUTE 2.41 10/3/uL (0.67-4.30); MEAN CORPUS HGB CONC 32.5 g/dL (32.0-36.0); MEAN CORPUSCULAR HEMOGLOB 28.7 pg (26.0-34.0); MEAN CORPUSCULAR VOLUME 88.1 fL (80-100); MEAN PLATELET VOLUME 9.1 fL (9.2-13.0); MONOCYTES 12.2 %; MONOCYTES ABSOLUTE 0.97 10/3/uL (0.21-1.20); NEUTROPHILS 52.1 %; NEUTROPHILS ABSOLUTE 4.13 10/3/uL (2.02-8.40); PLATELET COUNT 234 10/3/uL (150-400); RBC DISTRIBUTION WIDTH 15.8 % (12.0-16.0); RED CELL COUNT 2.86 10/6/uL (4.7-6.1); WHITE BLOOD CELLS 7.9 10/3/uL (4.5-10.5)
[2017-03-06 05:36] LABS: MANUAL DIFF NO %
[2017-03-06 05:46] LABS: ALBUMIN 2.4 G/DL (3.5-5.0); CALCIUM, SERUM 8.4 MG/DL (8.5-10.4); CHLORIDE, SERUM 106 MMOL/L (96-112); CO2 (CARBON DIOXIDE) 25 MMOL/L (24-34); PHOSPHORUS, SERUM 3.6 MG/DL (2.5-4.5); SODIUM, SERUM 142 MMOL/L (135-148)
[2017-03-06 05:53] LABS: BUN (BLOOD UREA NITROGEN) 31 MG/DL (6-23); GFR AFRICAN AMERICAN 19 ML/MIN (>=60); GFR NON AFRICAN AMERICAN 17 ML/MIN (>=60); GLUCOSE, SERUM 165 MG/DL (60-99)
[2017-03-07 07:39] LABS: BASOPHILS 0.7 %; BASOPHILS ABSOLUTE 0.07 10/3/uL (0.0-0.16); EOSINOPHILS 3.6 %; EOSINOPHILS ABSOLUTE 0.36 10/3/uL (0.0-0.53); HEMATOCRIT 24.9 % (40.0-51.0); HEMOGLOBIN 8.1 g/dL (13.6-17.8); IMMATURE GRANULOCYTES 0.3 %; IMMATURE GRANULOCYTES ABSOLUTE 0.03 10/3/uL (0.0-0.11); LYMPHOCYTES 24.7 %; MEAN CORPUS HGB CONC 32.5 g/dL (32.0-36.0); MEAN CORPUSCULAR HEMOGLOB 28.5 pg (26.0-34.0); MEAN CORPUSCULAR VOLUME 87.7 fL (80-100); MONOCYTES 8.8 %; MONOCYTES ABSOLUTE 0.89 10/3/uL (0.21-1.20); NEUTROPHILS 61.9 %; NEUTROPHILS ABSOLUTE 6.26 10/3/uL (2.02-8.40); PLATELET COUNT 246 10/3/uL (150-400); RBC DISTRIBUTION WIDTH 15.7 % (12.0-16.0); RED CELL COUNT 2.84 10/6/uL (4.7-6.1); WHITE BLOOD CELLS 10.1 10/3/uL (4.5-10.5)
[2017-03-07 07:41] LABS: MANUAL DIFF NO %
[2017-03-07 07:49] LABS: ALBUMIN 2.5 G/DL (3.5-5.0); BUN (BLOOD UREA NITROGEN) 33 MG/DL (6-23); CALCIUM, SERUM 8.5 MG/DL (8.5-10.4); CHLORIDE, SERUM 107 MMOL/L (96-112); CO2 (CARBON DIOXIDE) 27 MMOL/L (24-34); CREATININE 4.08 MG/DL (0.70-1.30); GFR AFRICAN AMERICAN 18 ML/MIN (>=60); GFR NON AFRICAN AMERICAN 16 ML/MIN (>=60); GLUCOSE, SERUM 184 MG/DL (60-99); PHOSPHORUS, SERUM 4.2 MG/DL (2.5-4.5); POTASSIUM, SERUM 4.1 MMOL/L (3.5-5.3); SODIUM, SERUM 142 MMOL/L (135-148)
[2017-03-08 06:13] LABS: BASOPHILS 1.1 %; EOSINOPHILS 3.5 %; EOSINOPHILS ABSOLUTE 0.32 10/3/uL (0.0-0.53); HEMATOCRIT 24.2 % (40.0-51.0); HEMOGLOBIN 7.7 g/dL (13.6-17.8); IMMATURE GRANULOCYTES 0.4 %; IMMATURE GRANULOCYTES ABSOLUTE 0.04 10/3/uL (0.0-0.11); LYMPHOCYTES 29.5 %; LYMPHOCYTES ABSOLUTE 2.66 10/3/uL (0.67-4.30); MEAN CORPUS HGB CONC 31.8 g/dL (32.0-36.0); MEAN CORPUSCULAR HEMOGLOB 28.3 pg (26.0-34.0); MONOCYTES 9.1 %; MONOCYTES ABSOLUTE 0.82 10/3/uL (0.21-1.20); NEUTROPHILS 56.4 %; NEUTROPHILS ABSOLUTE 5.09 10/3/uL (2.02-8.40); PLATELET COUNT 233 10/3/uL (150-400); RED CELL COUNT 2.72 10/6/uL (4.7-6.1)
[2017-03-08 06:14] LABS: MANUAL DIFF NO %
[2017-03-08 06:26] LABS: ALBUMIN 2.8 G/DL (3.5-5.0); CALCIUM, SERUM 8.5 MG/DL (8.5-10.4); CHLORIDE, SERUM 108 MMOL/L (96-112); CO2 (CARBON DIOXIDE) 25 MMOL/L (24-34); GLUCOSE, SERUM 162 MG/DL (60-99); POTASSIUM, SERUM 4.4 MMOL/L (3.5-5.3); SODIUM, SERUM 142 MMOL/L (135-148)
[2017-03-08 06:27] LABS: BUN (BLOOD UREA NITROGEN) 22 MG/DL (6-23); CREATININE 3.44 MG/DL (0.70-1.30); GFR AFRICAN AMERICAN 22 ML/MIN (>=60); GFR NON AFRICAN AMERICAN 19 ML/MIN (>=60); PHOSPHORUS, SERUM 3.2 MG/DL (2.5-4.5)
[2017-03-08 10:45] LABS: INTERNATIONAL NORMAL RATI 1.5 UNITS (-); PARTIAL THROMBO TIME 35.7 SEC (22.5-37.2); PROTIME (NOT ORD) 17.7 SEC (12.0-14.5)
[2017-03-08 20:02] LABS: ASCORBIC ACID (UR NOT ORDER) 40 (NEG); BILIRUBIN, URINE NEGATIVE (NEG); KETONE, URINE NEGATIVE (NEG); LEUKOCYTE ESTERASE(NOT OR LARGE (NEG); WBC (NOT ORDERED) (RFLEX) > 182 (0-5)
[2017-03-09 08:42] LABS: BASOPHILS 0.7 %; BASOPHILS ABSOLUTE 0.06 10/3/uL (0.0-0.16); EOSINOPHILS 4.3 %; EOSINOPHILS ABSOLUTE 0.35 10/3/uL (0.0-0.53); HEMATOCRIT 23.1 % (40.0-51.0); HEMOGLOBIN 7.6 g/dL (13.6-17.8); IMMATURE GRANULOCYTES 0.2 %; IMMATURE GRANULOCYTES ABSOLUTE 0.02 10/3/uL (0.0-0.11); LYMPHOCYTES 28.9 %; LYMPHOCYTES ABSOLUTE 2.33 10/3/uL (0.67-4.30); MEAN CORPUS HGB CONC 32.9 g/dL (32.0-36.0); MEAN CORPUSCULAR VOLUME 88.2 fL (80-100); MONOCYTES 10.9 %; MONOCYTES ABSOLUTE 0.88 10/3/uL (0.21-1.20); NEUTROPHILS ABSOLUTE 4.43 10/3/uL (2.02-8.40); PLATELET COUNT 235 10/3/uL (150-400); RED CELL COUNT 2.62 10/6/uL (4.7-6.1); WHITE BLOOD CELLS 8.1 10/3/uL (4.5-10.5)
[2017-03-09 08:43] LABS: MANUAL DIFF NO %
[2017-03-09 08:46] LABS: INTERNATIONAL NORMAL RATI 1.3 UNITS (-); PROTIME (NOT ORD) 16.5 SEC (12.0-14.5)
[2017-03-09 08:56] LABS: ALBUMIN 2.9 G/DL (3.5-5.0); CALCIUM, SERUM 8.5 MG/DL (8.5-10.4); CHLORIDE, SERUM 103 MMOL/L (96-112); CO2 (CARBON DIOXIDE) 26 MMOL/L (24-34); DIRECT BILIRUBIN 0.1 MG/DL (0.0-0.4); GLUCOSE, SERUM 158 MG/DL (60-99); INDIRECT BILIRUBIN(NOT ORDER) 0.5 MG/DL (0.1-0.9); POTASSIUM, SERUM 4.5 MMOL/L (3.5-5.3); SGOT(AST) 12 U/L (5-40); SGPT(ALT) 17 U/L (5-65); SODIUM, SERUM 140 MMOL/L (135-148); TOTAL BILIRUBIN 0.6 MG/DL (0-1.2); TOTAL PROTEIN 6.6 G/DL (6.0-8.5)
[2017-03-09 08:59] LABS: ALKALINE PHOSPHATASE 124 U/L (45-117); BUN (BLOOD UREA NITROGEN) 32 MG/DL (6-23); CREATININE 4.07 MG/DL (0.70-1.30); GFR AFRICAN AMERICAN 18 ML/MIN (>=60); GFR NON AFRICAN AMERICAN 16 ML/MIN (>=60)
[2017-03-10 07:21] LABS: ASCORBIC ACID (UR NOT ORDER) 40 (NEG); BILIRUBIN, URINE NEGATIVE (NEG); KETONE, URINE NEGATIVE (NEG); LEUKOCYTE ESTERASE(NOT OR LARGE (NEG); WBC (NOT ORDERED) (RFLEX) > 182 (0-5)
[2017-03-10 09:02] LABS: BASOPHILS ABSOLUTE 0.08 10/3/uL (0.0-0.16); EOSINOPHILS 3.8 %; HEMATOCRIT 24.8 % (40.0-51.0); IMMATURE GRANULOCYTES 0.4 %; IMMATURE GRANULOCYTES ABSOLUTE 0.03 10/3/uL (0.0-0.11); LYMPHOCYTES 24.5 %; LYMPHOCYTES ABSOLUTE 1.92 10/3/uL (0.67-4.30); MEAN CORPUS HGB CONC 32.3 g/dL (32.0-36.0); MEAN CORPUSCULAR HEMOGLOB 28.5 pg (26.0-34.0); MEAN CORPUSCULAR VOLUME 88.3 fL (80-100); MEAN PLATELET VOLUME 8.8 fL (9.2-13.0); MONOCYTES 10.6 %; MONOCYTES ABSOLUTE 0.83 10/3/uL (0.21-1.20); NEUTROPHILS 59.7 %; NEUTROPHILS ABSOLUTE 4.69 10/3/uL (2.02-8.40); PLATELET COUNT 229 10/3/uL (150-400); RBC DISTRIBUTION WIDTH 15.5 % (12.0-16.0); RED CELL COUNT 2.81 10/6/uL (4.7-6.1); WHITE BLOOD CELLS 7.9 10/3/uL (4.5-10.5)
[2017-03-10 09:03] LABS: MANUAL DIFF NO %
[2017-03-10 09:05] LABS: INTERNATIONAL NORMAL RATI 1.4 UNITS (-)
[2017-03-10 09:20] LABS: A/G RATIO 0.7 (0.7-1.9); ALBUMIN 2.8 G/DL (3.5-5.0); ALKALINE PHOSPHATASE 130 U/L (45-117); CALCIUM, SERUM 8.4 MG/DL (8.5-10.4); CHLORIDE, SERUM 99 MMOL/L (96-112); CO2 (CARBON DIOXIDE) 27 MMOL/L (24-34); GFR AFRICAN AMERICAN 23 ML/MIN (>=60); GFR NON AFRICAN AMERICAN 20 ML/MIN (>=60); GLOBULIN 3.8 G/DL (2.5-4.1); GLUCOSE, SERUM 147 MG/DL (60-99); POTASSIUM, SERUM 4.2 MMOL/L (3.5-5.3); SGOT(AST) 11 U/L (5-40); SGPT(ALT) 14 U/L (5-65); SODIUM, SERUM 138 MMOL/L (135-148); TOTAL BILIRUBIN 0.9 MG/DL (0-1.2); TOTAL PROTEIN 6.6 G/DL (6.0-8.5)
[2017-03-10 09:22] LABS: BUN (BLOOD UREA NITROGEN) 21 MG/DL (6-23)
[2017-03-10 20:01] LABS: BE (BASE EXCESS) 0.1 MEQ/L (0 +/- 2.5); CARBOXYHEMOGLOBIN 0.1 % (0-3); HCO3 (ACTUAL BICARBONATE) 24.1 MEQ/L (23-27); HEMOBLOGIN CONTENT 8.7 G/DL (14-18); INSTRUMENT SERIAL # 11843; METHEMOGLOBIN 0.7 % (0-3); MODE SIMV; O2 CONTENT 13.5 VOL% (18-24); PCO2 (CO2 TENSION) 36 MMHG (35-45); PO2 (O2 TENSION) 498 MMHG (79-93); SAMPLE Arterial; TIDAL VOLUME 750 ML; pH 7.44 (7.37-7.43)
[2017-03-10 20:15] LABS: HEMATOCRIT 23.1 % (40.0-51.0); HEMOGLOBIN 7.9 g/dL (13.6-17.8); MEAN CORPUSCULAR HEMOGLOB 28.9 pg (26.0-34.0); PLATELET COUNT 222 10/3/uL (150-400); RED CELL COUNT 2.73 10/6/uL (4.7-6.1)
[2017-03-10 20:23] LABS: MEAN CORPUS HGB CONC 34.2 g/dL (32.0-36.0); MEAN CORPUSCULAR VOLUME 84.6 fL (80-100); WHITE BLOOD CELLS 11.9 10/3/uL (4.5-10.5)
[2017-03-10 20:24] LABS: MANUAL DIFF YES %
[2017-03-10 20:27] LABS: CALCIUM, SERUM 8.5 MG/DL (8.5-10.4); CHLORIDE, SERUM 102 MMOL/L (96-112); CO2 (CARBON DIOXIDE) 26 MMOL/L (24-34); CREATININE 3.67 MG/DL (0.70-1.30); GFR AFRICAN AMERICAN 21 ML/MIN (>=60); GFR NON AFRICAN AMERICAN 18 ML/MIN (>=60); GLUCOSE, SERUM 131 MG/DL (60-99); POTASSIUM, SERUM 4.5 MMOL/L (3.5-5.3); SODIUM, SERUM 139 MMOL/L (135-148)
[2017-03-10 20:28] LABS: BUN (BLOOD UREA NITROGEN) 26 MG/DL (6-23); INTERNATIONAL NORMAL RATI 1.9 UNITS (-); PARTIAL THROMBO TIME 34.3 SEC (22.5-37.2)
[2017-03-10 20:36] LABS: FIBRINOGEN 335 MG/DL (230-462)
[2017-03-10 20:40] LABS: PROTIME (NOT ORD) 21.4 SEC (12.0-14.5)
[2017-03-10 21:37] LABS: BAND NEUTROPHILS 5 %; EOSINOPHILS 2 %; EOSINOPHILS ABSOLUTE (CALC) 0.24 10/3/uL (0.0-0.53); LYMPHOCYTES 8 %; LYMPHOCYTES ABSOLUTE (CALC) 0.95 10/3/uL (0.67-4.30); MONOCYTES 1 %; MONOCYTES ABSOLUTE (CALC) 0.12 10/3/uL (0.21-1.20); NEUTROPHILS ABSOLUTE (CALC) 10.59 10/3/uL (2.02-8.40); PLATELET ESTIMATE ADQ (ADEQUATE); RBC MORPHOLOGY NORM (NORMAL); SEGMENTED NEUTROPHIL (0) 84 %; TOTAL NUCLEATED CELLS 100
[2017-03-10 23:48] LABS: BE (BASE EXCESS) -2.8 MEQ/L (0 +/- 2.5); CARBOXYHEMOGLOBIN 0.6 % (0-3); DEVICE NC; HCO3 (ACTUAL BICARBONATE) 22.3 MEQ/L (23-27); HEMOBLOGIN CONTENT 8.3 G/DL (14-18); INSTRUMENT SERIAL # 11843; METHEMOGLOBIN 0.7 % (0-3); O2 CONTENT 11.9 VOL% (18-24); PCO2 (CO2 TENSION) 40 MMHG (35-45); PO2 (O2 TENSION) 216 MMHG (79-93); SAMPLE Arterial; pH 7.37 (7.37-7.43)
[2017-03-11 01:27] LABS: HEMATOCRIT 21.8 % (40.0-51.0); HEMOGLOBIN 7.6 g/dL (13.6-17.8)
[2017-03-11 01:37] LABS: POTASSIUM, SERUM 4.5 MMOL/L (3.5-5.3)
[2017-03-11 04:48] LABS: BASOPHILS 0.1 %; BASOPHILS ABSOLUTE 0.01 10/3/uL (0.0-0.16); EOSINOPHILS 0 %; HEMOGLOBIN 7.1 g/dL (13.6-17.8); IMMATURE GRANULOCYTES 0.2 %; IMMATURE GRANULOCYTES ABSOLUTE 0.02 10/3/uL (0.0-0.11); LYMPHOCYTES 9.8 %; LYMPHOCYTES ABSOLUTE 1.14 10/3/uL (0.67-4.30); MEAN CORPUS HGB CONC 34.1 g/dL (32.0-36.0); MEAN CORPUSCULAR HEMOGLOB 28.9 pg (26.0-34.0); MEAN CORPUSCULAR VOLUME 84.6 fL (80-100); MEAN PLATELET VOLUME 9.2 fL (9.2-13.0); MONOCYTES 5.4 %; MONOCYTES ABSOLUTE 0.63 10/3/uL (0.21-1.20); NEUTROPHILS 84.5 %; NEUTROPHILS ABSOLUTE 9.83 10/3/uL (2.02-8.40); PLATELET COUNT 203 10/3/uL (150-400); RBC DISTRIBUTION WIDTH 15.3 % (12.0-16.0); RED CELL COUNT 2.46 10/6/uL (4.7-6.1); WHITE BLOOD CELLS 11.6 10/3/uL (4.5-10.5)
[2017-03-11 04:50] LABS: HEMATOCRIT 20.8 % (40.0-51.0)
[2017-03-11 04:52] LABS: MANUAL DIFF NO %
[2017-03-11 04:56] LABS: INTERNATIONAL NORMAL RATI 1.6 UNITS (-)
[2017-03-11 05:00] LABS: BUN (BLOOD UREA NITROGEN) 31 MG/DL (6-23); CALCIUM, SERUM 8.2 MG/DL (8.5-10.4); CHLORIDE, SERUM 105 MMOL/L (96-112); CO2 (CARBON DIOXIDE) 25 MMOL/L (24-34); CREATININE 3.87 MG/DL (0.70-1.30); GFR AFRICAN AMERICAN 19 ML/MIN (>=60); GFR NON AFRICAN AMERICAN 17 ML/MIN (>=60); GLUCOSE, SERUM 97 MG/DL (60-99); POTASSIUM, SERUM 4.8 MMOL/L (3.5-5.3); SODIUM, SERUM 140 MMOL/L (135-148)
[2017-03-11 17:33] LABS: HEMATOCRIT 20.5 % (40.0-51.0)
[2017-03-11 17:44] LABS: POTASSIUM, SERUM 4.8 MMOL/L (3.5-5.3)
[2017-03-12 03:49] LABS: BASOPHILS 0.1 %; BASOPHILS ABSOLUTE 0.01 10/3/uL (0.0-0.16); EOSINOPHILS 0 %; IMMATURE GRANULOCYTES 0.3 %; IMMATURE GRANULOCYTES ABSOLUTE 0.04 10/3/uL (0.0-0.11); LYMPHOCYTES 10.4 %; LYMPHOCYTES ABSOLUTE 1.35 10/3/uL (0.67-4.30); MEAN CORPUS HGB CONC 34.4 g/dL (32.0-36.0); MEAN CORPUSCULAR HEMOGLOB 29.6 pg (26.0-34.0); MEAN CORPUSCULAR VOLUME 86.3 fL (80-100); MEAN PLATELET VOLUME 9.5 fL (9.2-13.0); MONOCYTES 9.3 %; NEUTROPHILS 79.9 %; NEUTROPHILS ABSOLUTE 10.33 10/3/uL (2.02-8.40); PLATELET COUNT 231 10/3/uL (150-400); RBC DISTRIBUTION WIDTH 15.9 % (12.0-16.0); RED CELL COUNT 2.26 10/6/uL (4.7-6.1); WHITE BLOOD CELLS 12.9 10/3/uL (4.5-10.5)
[2017-03-12 03:50] LABS: HEMATOCRIT 19.5 % (40.0-51.0); HEMOGLOBIN 6.7 g/dL (13.6-17.8)
[2017-03-12 03:51] LABS: MANUAL DIFF NO %
[2017-03-12 03:58] LABS: CALCIUM, SERUM 8.7 MG/DL (8.5-10.4); CHLORIDE, SERUM 103 MMOL/L (96-112); POTASSIUM, SERUM 4.9 MMOL/L (3.5-5.3); SODIUM, SERUM 138 MMOL/L (135-148)
[2017-03-12 03:59] LABS: BUN (BLOOD UREA NITROGEN) 45 MG/DL (6-23); CO2 (CARBON DIOXIDE) 20 MMOL/L (24-34); CREATININE 5.09 MG/DL (0.70-1.30); GFR AFRICAN AMERICAN 14 ML/MIN (>=60); GFR NON AFRICAN AMERICAN 12 ML/MIN (>=60); GLUCOSE, SERUM 169 MG/DL (60-99)
[2017-03-13 03:57] LABS: BASOPHILS 0.1 %; BASOPHILS ABSOLUTE 0.01 10/3/uL (0.0-0.16); EOSINOPHILS 0 %; IMMATURE GRANULOCYTES 0.5 %; IMMATURE GRANULOCYTES ABSOLUTE 0.06 10/3/uL (0.0-0.11); LYMPHOCYTES 14.1 %; LYMPHOCYTES ABSOLUTE 1.71 10/3/uL (0.67-4.30); MEAN CORPUSCULAR HEMOGLOB 27.9 pg (26.0-34.0); MEAN CORPUSCULAR VOLUME 88.8 fL (80-100); MEAN PLATELET VOLUME 9.8 fL (9.2-13.0); MONOCYTES 13.8 %; MONOCYTES ABSOLUTE 1.67 10/3/uL (0.21-1.20); NEUTROPHILS 71.5 %; NEUTROPHILS ABSOLUTE 8.69 10/3/uL (2.02-8.40); PLATELET COUNT 236 10/3/uL (150-400); WHITE BLOOD CELLS 12.1 10/3/uL (4.5-10.5)
[2017-03-13 04:04] LABS: HEMATOCRIT 26.1 % (40.0-51.0); HEMOGLOBIN 8.2 g/dL (13.6-17.8); MANUAL DIFF NO %; MEAN CORPUS HGB CONC 31.4 g/dL (32.0-36.0); RED CELL COUNT 2.94 10/6/uL (4.7-6.1)
[2017-03-13 07:20] LABS: BUN (BLOOD UREA NITROGEN) 35 MG/DL (6-23); CALCIUM, SERUM 8.6 MG/DL (8.5-10.4); CHLORIDE, SERUM 102 MMOL/L (96-112); CO2 (CARBON DIOXIDE) 23 MMOL/L (24-34); CREATININE 3.73 MG/DL (0.70-1.30); GFR AFRICAN AMERICAN 20 ML/MIN (>=60); GFR NON AFRICAN AMERICAN 18 ML/MIN (>=60); GLUCOSE, SERUM 190 MG/DL (60-99); POTASSIUM, SERUM 4.3 MMOL/L (3.5-5.3); SODIUM, SERUM 139 MMOL/L (135-148)
[2017-03-14 04:17] LABS: BASOPHILS 0 %; EOSINOPHILS 0.4 %; EOSINOPHILS ABSOLUTE 0.04 10/3/uL (0.0-0.53); HEMATOCRIT 24.7 % (40.0-51.0); HEMOGLOBIN 8.1 g/dL (13.6-17.8); IMMATURE GRANULOCYTES 0.5 %; IMMATURE GRANULOCYTES ABSOLUTE 0.05 10/3/uL (0.0-0.11); LYMPHOCYTES 18.5 %; LYMPHOCYTES ABSOLUTE 1.96 10/3/uL (0.67-4.30); MANUAL DIFF NO %; MEAN CORPUS HGB CONC 32.8 g/dL (32.0-36.0); MEAN CORPUSCULAR HEMOGLOB 28.6 pg (26.0-34.0); MEAN CORPUSCULAR VOLUME 87.3 fL (80-100); MEAN PLATELET VOLUME 9.4 fL (9.2-13.0); MONOCYTES 11.7 %; MONOCYTES ABSOLUTE 1.24 10/3/uL (0.21-1.20); NEUTROPHILS 68.9 %; NEUTROPHILS ABSOLUTE 7.29 10/3/uL (2.02-8.40); PLATELET COUNT 307 10/3/uL (150-400); RBC DISTRIBUTION WIDTH 15.9 % (12.0-16.0); RED CELL COUNT 2.83 10/6/uL (4.7-6.1); WHITE BLOOD CELLS 10.6 10/3/uL (4.5-10.5)
[2017-03-14 04:32] LABS: CALCIUM, SERUM 8.7 MG/DL (8.5-10.4); CHLORIDE, SERUM 99 MMOL/L (96-112); POTASSIUM, SERUM 3.6 MMOL/L (3.5-5.3); SODIUM, SERUM 141 MMOL/L (135-148)
[2017-03-14 04:33] LABS: BUN (BLOOD UREA NITROGEN) 42 MG/DL (6-23); CO2 (CARBON DIOXIDE) 30 MMOL/L (24-34); CREATININE 4.31 MG/DL (0.70-1.30); GFR AFRICAN AMERICAN 17 ML/MIN (>=60); GFR NON AFRICAN AMERICAN 15 ML/MIN (>=60); GLUCOSE, SERUM 150 MG/DL (60-99)
[2017-03-15 03:16] LABS: BASOPHILS 0.1 %; BASOPHILS ABSOLUTE 0.01 10/3/uL (0.0-0.16); EOSINOPHILS 2.7 %; EOSINOPHILS ABSOLUTE 0.27 10/3/uL (0.0-0.53); HEMATOCRIT 26.1 % (40.0-51.0); HEMOGLOBIN 8.5 g/dL (13.6-17.8); IMMATURE GRANULOCYTES 1.2 %; IMMATURE GRANULOCYTES ABSOLUTE 0.12 10/3/uL (0.0-0.11); LYMPHOCYTES 22.5 %; LYMPHOCYTES ABSOLUTE 2.21 10/3/uL (0.67-4.30); MANUAL DIFF NO %; MEAN CORPUS HGB CONC 32.6 g/dL (32.0-36.0); MEAN CORPUSCULAR HEMOGLOB 28.7 pg (26.0-34.0); MEAN CORPUSCULAR VOLUME 88.2 fL (80-100); MEAN PLATELET VOLUME 8.7 fL (9.2-13.0); MONOCYTES 10.9 %; MONOCYTES ABSOLUTE 1.07 10/3/uL (0.21-1.20); NEUTROPHILS 62.6 %; NEUTROPHILS ABSOLUTE 6.14 10/3/uL (2.02-8.40); PLATELET COUNT 290 10/3/uL (150-400); RBC DISTRIBUTION WIDTH 15.7 % (12.0-16.0); RED CELL COUNT 2.96 10/6/uL (4.7-6.1); WHITE BLOOD CELLS 9.8 10/3/uL (4.5-10.5)
[2017-03-15 03:30] LABS: CALCIUM, SERUM 8.8 MG/DL (8.5-10.4); CHLORIDE, SERUM 106 MMOL/L (96-112); CO2 (CARBON DIOXIDE) 30 MMOL/L (24-34); SODIUM, SERUM 144 MMOL/L (135-148)
[2017-03-15 03:32] LABS: BUN (BLOOD UREA NITROGEN) 29 MG/DL (6-23); CREATININE 2.99 MG/DL (0.70-1.30); GFR AFRICAN AMERICAN 27 ML/MIN (>=60); GFR NON AFRICAN AMERICAN 23 ML/MIN (>=60); GLUCOSE, SERUM 197 MG/DL (60-99)
[2017-03-15 23:38] LABS: INTERNATIONAL NORMAL RATI 3.3 UNITS (-)
[2017-03-15 23:42] LABS: PARTIAL THROMBO TIME 75.5 SEC (22.5-37.2)
[2017-03-15 23:43] LABS: PROTIME (NOT ORD) 32.9 SEC (12.0-14.5)
[2017-03-16 05:00] LABS: HEMATOCRIT 25.7 % (40.0-51.0); HEMOGLOBIN 8.3 g/dL (13.6-17.8); MANUAL DIFF YES %; MEAN CORPUS HGB CONC 32.3 g/dL (32.0-36.0); MEAN CORPUSCULAR HEMOGLOB 28.9 pg (26.0-34.0); MEAN CORPUSCULAR VOLUME 89.5 fL (80-100); MEAN PLATELET VOLUME 8.8 fL (9.2-13.0); PLATELET COUNT 332 10/3/uL (150-400); RBC DISTRIBUTION WIDTH 15.5 % (12.0-16.0); RED CELL COUNT 2.87 10/6/uL (4.7-6.1); WHITE BLOOD CELLS 10.8 10/3/uL (4.5-10.5)
[2017-03-16 05:18] LABS: ALBUMIN 2.7 G/DL (3.5-5.0); CALCIUM, SERUM 8.5 MG/DL (8.5-10.4); CHLORIDE, SERUM 101 MMOL/L (96-112); CO2 (CARBON DIOXIDE) 26 MMOL/L (24-34); CREATININE 3.26 MG/DL (0.70-1.30); GFR AFRICAN AMERICAN 24 ML/MIN (>=60); GFR NON AFRICAN AMERICAN 21 ML/MIN (>=60); GLUCOSE, SERUM 184 MG/DL (60-99); POTASSIUM, SERUM 3.7 MMOL/L (3.5-5.3); SODIUM, SERUM 140 MMOL/L (135-148)
[2017-03-16 05:21] LABS: BUN (BLOOD UREA NITROGEN) 36 MG/DL (6-23); PHOSPHORUS, SERUM 2.8 MG/DL (2.5-4.5)
[2017-03-16 05:50] LABS: EOSINOPHILS 3 %; EOSINOPHILS ABSOLUTE (CALC) 0.32 10/3/uL (0.0-0.53); LYMPHOCYTES 25 %; MONOCYTES 12 %; NEUTROPHILS ABSOLUTE (CALC) 6.48 10/3/uL (2.02-8.40); SEGMENTED NEUTROPHIL (0) 60 %; TOTAL NUCLEATED CELLS 100
[2017-03-16 05:51] LABS: PLATELET ESTIMATE ADQ (ADEQUATE); RBC MORPHOLOGY NORM (NORMAL)
[2017-03-17 07:03] LABS: BASOPHILS 0.3 %; BASOPHILS ABSOLUTE 0.03 10/3/uL (0.0-0.16); EOSINOPHILS 6.3 %; EOSINOPHILS ABSOLUTE 0.64 10/3/uL (0.0-0.53); HEMATOCRIT 23.5 % (40.0-51.0); HEMOGLOBIN 7.6 g/dL (13.6-17.8); IMMATURE GRANULOCYTES 1.3 %; IMMATURE GRANULOCYTES ABSOLUTE 0.13 10/3/uL (0.0-0.11); LYMPHOCYTES 20.7 %; LYMPHOCYTES ABSOLUTE 2.09 10/3/uL (0.67-4.30); MEAN CORPUS HGB CONC 32.3 g/dL (32.0-36.0); MEAN CORPUSCULAR HEMOGLOB 28.9 pg (26.0-34.0); MEAN CORPUSCULAR VOLUME 89.4 fL (80-100); MEAN PLATELET VOLUME 8.8 fL (9.2-13.0); MONOCYTES 12.4 %; MONOCYTES ABSOLUTE 1.25 10/3/uL (0.21-1.20); NEUTROPHILS ABSOLUTE 5.97 10/3/uL (2.02-8.40); PLATELET COUNT 294 10/3/uL (150-400); RBC DISTRIBUTION WIDTH 15.4 % (12.0-16.0); RED CELL COUNT 2.63 10/6/uL (4.7-6.1); WHITE BLOOD CELLS 10.1 10/3/uL (4.5-10.5)
[2017-03-17 07:06] LABS: MANUAL DIFF NO %
[2017-03-17 07:11] LABS: BUN (BLOOD UREA NITROGEN) 39 MG/DL (6-23); CALCIUM, SERUM 8.3 MG/DL (8.5-10.4); CHLORIDE, SERUM 101 MMOL/L (96-112); CO2 (CARBON DIOXIDE) 25 MMOL/L (24-34); CREATININE 2.98 MG/DL (0.70-1.30); GFR AFRICAN AMERICAN 27 ML/MIN (>=60); GFR NON AFRICAN AMERICAN 23 ML/MIN (>=60); GLUCOSE, SERUM 102 MG/DL (60-99); POTASSIUM, SERUM 4.1 MMOL/L (3.5-5.3); SODIUM, SERUM 140 MMOL/L (135-148)
[2017-03-18 05:41] LABS: HEMATOCRIT 24.9 % (40.0-51.0); MANUAL DIFF YES %; MEAN CORPUS HGB CONC 32.1 g/dL (32.0-36.0); MEAN CORPUSCULAR HEMOGLOB 28.7 pg (26.0-34.0); MEAN CORPUSCULAR VOLUME 89.2 fL (80-100); MEAN PLATELET VOLUME 8.4 fL (9.2-13.0); PLATELET COUNT 279 10/3/uL (150-400); RBC DISTRIBUTION WIDTH 15.2 % (12.0-16.0); RED CELL COUNT 2.79 10/6/uL (4.7-6.1); WHITE BLOOD CELLS 9.7 10/3/uL (4.5-10.5)
[2017-03-18 05:45] LABS: INTERNATIONAL NORMAL RATI 1.3 UNITS (-)
[2017-03-18 05:49] LABS: PROTIME (NOT ORD) 16.3 SEC (12.0-14.5)
[2017-03-18 05:51] LABS: BUN (BLOOD UREA NITROGEN) 39 MG/DL (6-23); CALCIUM, SERUM 8.2 MG/DL (8.5-10.4); CHLORIDE, SERUM 103 MMOL/L (96-112); CO2 (CARBON DIOXIDE) 26 MMOL/L (24-34); CREATININE 2.93 MG/DL (0.70-1.30); GFR AFRICAN AMERICAN 27 ML/MIN (>=60); GFR NON AFRICAN AMERICAN 23 ML/MIN (>=60); POTASSIUM, SERUM 4.1 MMOL/L (3.5-5.3); SODIUM, SERUM 138 MMOL/L (135-148)
[2017-03-18 05:53] LABS: GLUCOSE, SERUM 133 MG/DL (60-99)
[2017-03-18 06:25] LABS: BAND NEUTROPHILS 2 %; EOSINOPHILS 2 %; EOSINOPHILS ABSOLUTE (CALC) 0.19 10/3/uL (0.0-0.53); LYMPHOCYTES 22 %; LYMPHOCYTES ABSOLUTE (CALC) 2.13 10/3/uL (0.67-4.30); METAMYELOCYTES 1 %; MONOCYTES 12 %; MONOCYTES ABSOLUTE (CALC) 1.16 10/3/uL (0.21-1.20); NEUTROPHILS ABSOLUTE (CALC) 6.11 10/3/uL (2.02-8.40); PLATELET ESTIMATE ADQ (ADEQUATE); RBC MORPHOLOGY NORM (NORMAL); SEGMENTED NEUTROPHIL (0) 61 %; TOTAL NUCLEATED CELLS 100
[2017-03-19 08:26] LABS: BASOPHILS 0.2 %; BASOPHILS ABSOLUTE 0.02 10/3/uL (0.0-0.16); EOSINOPHILS ABSOLUTE 0.49 10/3/uL (0.0-0.53); HEMATOCRIT 23.2 % (40.0-51.0); HEMOGLOBIN 7.6 g/dL (13.6-17.8); IMMATURE GRANULOCYTES 1.8 %; IMMATURE GRANULOCYTES ABSOLUTE 0.15 10/3/uL (0.0-0.11); LYMPHOCYTES 23.7 %; LYMPHOCYTES ABSOLUTE 1.93 10/3/uL (0.67-4.30); MEAN CORPUS HGB CONC 32.8 g/dL (32.0-36.0); MEAN CORPUSCULAR VOLUME 88.5 fL (80-100); MEAN PLATELET VOLUME 8.5 fL (9.2-13.0); MONOCYTES ABSOLUTE 1.14 10/3/uL (0.21-1.20); NEUTROPHILS 54.3 %; NEUTROPHILS ABSOLUTE 4.43 10/3/uL (2.02-8.40); PLATELET COUNT 295 10/3/uL (150-400); RBC DISTRIBUTION WIDTH 15.3 % (12.0-16.0); RED CELL COUNT 2.62 10/6/uL (4.7-6.1); WHITE BLOOD CELLS 8.2 10/3/uL (4.5-10.5)
[2017-03-19 08:28] LABS: MANUAL DIFF NO %
[2017-03-19 08:30] LABS: INTERNATIONAL NORMAL RATI 1.6 UNITS (-)
[2017-03-19 08:32] LABS: PROTIME (NOT ORD) 18.8 SEC (12.0-14.5)
[2017-03-19 09:18] LABS: ALBUMIN 2.4 G/DL (3.5-5.0); BUN (BLOOD UREA NITROGEN) 44 MG/DL (6-23); CALCIUM, SERUM 8.4 MG/DL (8.5-10.4); CHLORIDE, SERUM 105 MMOL/L (96-112); CO2 (CARBON DIOXIDE) 25 MMOL/L (24-34); CREATININE 2.84 MG/DL (0.70-1.30); GFR AFRICAN AMERICAN 28 ML/MIN (>=60); GFR NON AFRICAN AMERICAN 24 ML/MIN (>=60); GLUCOSE, SERUM 120 MG/DL (60-99); POTASSIUM, SERUM 4.2 MMOL/L (3.5-5.3); SODIUM, SERUM 142 MMOL/L (135-148)
[2017-03-20 06:58] LABS: BASOPHILS 0.2 %; BASOPHILS ABSOLUTE 0.02 10/3/uL (0.0-0.16); EOSINOPHILS 5.2 %; EOSINOPHILS ABSOLUTE 0.44 10/3/uL (0.0-0.53); HEMATOCRIT 22.6 % (40.0-51.0); HEMOGLOBIN 7.3 g/dL (13.6-17.8); IMMATURE GRANULOCYTES 1.2 %; LYMPHOCYTES 24.8 %; MEAN CORPUS HGB CONC 32.3 g/dL (32.0-36.0); MEAN CORPUSCULAR HEMOGLOB 28.7 pg (26.0-34.0); MEAN PLATELET VOLUME 8.3 fL (9.2-13.0); MONOCYTES 11.6 %; MONOCYTES ABSOLUTE 0.98 10/3/uL (0.21-1.20); NEUTROPHILS ABSOLUTE 4.84 10/3/uL (2.02-8.40); PLATELET COUNT 268 10/3/uL (150-400); RBC DISTRIBUTION WIDTH 15.1 % (12.0-16.0); RED CELL COUNT 2.54 10/6/uL (4.7-6.1); WHITE BLOOD CELLS 8.5 10/3/uL (4.5-10.5)
[2017-03-20 06:59] LABS: MANUAL DIFF NO %
[2017-03-20 07:06] LABS: CALCIUM, SERUM 8.1 MG/DL (8.5-10.4); CHLORIDE, SERUM 103 MMOL/L (96-112); CREATININE 2.92 MG/DL (0.70-1.30); GFR AFRICAN AMERICAN 27 ML/MIN (>=60); GFR NON AFRICAN AMERICAN 24 ML/MIN (>=60); POTASSIUM, SERUM 4.2 MMOL/L (3.5-5.3); SODIUM, SERUM 141 MMOL/L (135-148)
[2017-03-20 07:07] LABS: BUN (BLOOD UREA NITROGEN) 39 MG/DL (6-23); CO2 (CARBON DIOXIDE) 31 MMOL/L (24-34); GLUCOSE, SERUM 164 MG/DL (60-99); PROTIME (NOT ORD) 22.2 SEC (12.0-14.5)
[2017-03-21 06:35] LABS: BASOPHILS 0.5 %; BASOPHILS ABSOLUTE 0.04 10/3/uL (0.0-0.16); EOSINOPHILS 5.3 %; EOSINOPHILS ABSOLUTE 0.45 10/3/uL (0.0-0.53); HEMATOCRIT 23.9 % (40.0-51.0); HEMOGLOBIN 7.7 g/dL (13.6-17.8); IMMATURE GRANULOCYTES 0.8 %; IMMATURE GRANULOCYTES ABSOLUTE 0.07 10/3/uL (0.0-0.11); LYMPHOCYTES 27.3 %; LYMPHOCYTES ABSOLUTE 2.33 10/3/uL (0.67-4.30); MEAN CORPUS HGB CONC 32.2 g/dL (32.0-36.0); MEAN CORPUSCULAR HEMOGLOB 28.8 pg (26.0-34.0); MEAN CORPUSCULAR VOLUME 89.5 fL (80-100); MEAN PLATELET VOLUME 8.1 fL (9.2-13.0); MONOCYTES 8.9 %; MONOCYTES ABSOLUTE 0.76 10/3/uL (0.21-1.20); NEUTROPHILS 57.2 %; PLATELET COUNT 250 10/3/uL (150-400); RED CELL COUNT 2.67 10/6/uL (4.7-6.1); WHITE BLOOD CELLS 8.6 10/3/uL (4.5-10.5)
[2017-03-21 06:40] LABS: INTERNATIONAL NORMAL RATI 1.7 UNITS (-); PROTIME (NOT ORD) 19.7 SEC (12.0-14.5)
[2017-03-21 06:44] LABS: MANUAL DIFF NO %
[2017-03-21 06:46] LABS: BUN (BLOOD UREA NITROGEN) 42 MG/DL (6-23); CALCIUM, SERUM 8.1 MG/DL (8.5-10.4); CHLORIDE, SERUM 103 MMOL/L (96-112); CO2 (CARBON DIOXIDE) 29 MMOL/L (24-34); CREATININE 2.77 MG/DL (0.70-1.30); GFR AFRICAN AMERICAN 29 ML/MIN (>=60); GFR NON AFRICAN AMERICAN 25 ML/MIN (>=60); GLUCOSE, SERUM 134 MG/DL (60-99); SODIUM, SERUM 140 MMOL/L (135-148)
[2017-03-22 10:30] LABS: BASOPHILS 0.3 %; BASOPHILS ABSOLUTE 0.03 10/3/uL (0.0-0.16); EOSINOPHILS 3.3 %; EOSINOPHILS ABSOLUTE 0.36 10/3/uL (0.0-0.53); HEMATOCRIT 25.6 % (40.0-51.0); HEMOGLOBIN 8.3 g/dL (13.6-17.8); IMMATURE GRANULOCYTES 0.5 %; IMMATURE GRANULOCYTES ABSOLUTE 0.06 10/3/uL (0.0-0.11); LYMPHOCYTES 20.5 %; LYMPHOCYTES ABSOLUTE 2.26 10/3/uL (0.67-4.30); MEAN CORPUS HGB CONC 32.4 g/dL (32.0-36.0); MEAN CORPUSCULAR HEMOGLOB 28.5 pg (26.0-34.0); MEAN PLATELET VOLUME 8.4 fL (9.2-13.0); MONOCYTES 7.4 %; MONOCYTES ABSOLUTE 0.82 10/3/uL (0.21-1.20); NEUTROPHILS ABSOLUTE 7.49 10/3/uL (2.02-8.40); PLATELET COUNT 228 10/3/uL (150-400); RBC DISTRIBUTION WIDTH 15.3 % (12.0-16.0); RED CELL COUNT 2.91 10/6/uL (4.7-6.1)
[2017-03-22 10:31] LABS: MANUAL DIFF NO %
[2017-03-22 10:35] LABS: INTERNATIONAL NORMAL RATI 2.2 UNITS (-)
[2017-03-22 10:41] LABS: BUN (BLOOD UREA NITROGEN) 42 MG/DL (6-23); CALCIUM, SERUM 8.5 MG/DL (8.5-10.4); CHLORIDE, SERUM 104 MMOL/L (96-112); CO2 (CARBON DIOXIDE) 30 MMOL/L (24-34); GFR AFRICAN AMERICAN 29 ML/MIN (>=60); GFR NON AFRICAN AMERICAN 25 ML/MIN (>=60); GLUCOSE, SERUM 71 MG/DL (60-99); POTASSIUM, SERUM 4.8 MMOL/L (3.5-5.3); PROTIME (NOT ORD) 24.4 SEC (12.0-14.5); SODIUM, SERUM 140 MMOL/L (135-148)
[2017-03-22 10:48] LABS: PLATELET ESTIMATE ADQ (ADEQUATE)
[2017-03-23 09:25] LABS: BASOPHILS 0.2 %; BASOPHILS ABSOLUTE 0.02 10/3/uL (0.0-0.16); EOSINOPHILS 1.9 %; EOSINOPHILS ABSOLUTE 0.23 10/3/uL (0.0-0.53); HEMATOCRIT 23.8 % (40.0-51.0); HEMOGLOBIN 7.7 g/dL (13.6-17.8); IMMATURE GRANULOCYTES 0.3 %; IMMATURE GRANULOCYTES ABSOLUTE 0.03 10/3/uL (0.0-0.11); LYMPHOCYTES 13.4 %; LYMPHOCYTES ABSOLUTE 1.61 10/3/uL (0.67-4.30); MEAN CORPUS HGB CONC 32.4 g/dL (32.0-36.0); MEAN CORPUSCULAR HEMOGLOB 28.3 pg (26.0-34.0); MEAN CORPUSCULAR VOLUME 87.5 fL (80-100); MEAN PLATELET VOLUME 8.3 fL (9.2-13.0); MONOCYTES 8.8 %; MONOCYTES ABSOLUTE 1.06 10/3/uL (0.21-1.20); NEUTROPHILS 75.4 %; NEUTROPHILS ABSOLUTE 9.05 10/3/uL (2.02-8.40); PLATELET COUNT 193 10/3/uL (150-400); RBC DISTRIBUTION WIDTH 15.1 % (12.0-16.0); RED CELL COUNT 2.72 10/6/uL (4.7-6.1)
[2017-03-23 09:26] LABS: MANUAL DIFF NO %
[2017-03-23 09:40] LABS: ALBUMIN 2.3 G/DL (3.5-5.0); BUN (BLOOD UREA NITROGEN) 42 MG/DL (6-23); CALCIUM, SERUM 8.7 MG/DL (8.5-10.4); CHLORIDE, SERUM 103 MMOL/L (96-112); CO2 (CARBON DIOXIDE) 27 MMOL/L (24-34); CREATININE 2.83 MG/DL (0.70-1.30); GFR AFRICAN AMERICAN 28 ML/MIN (>=60); GFR NON AFRICAN AMERICAN 24 ML/MIN (>=60); GLUCOSE, SERUM 88 MG/DL (60-99); PHOSPHORUS, SERUM 4.4 MG/DL (2.5-4.5); SODIUM, SERUM 139 MMOL/L (135-148)
[2017-03-23 09:47] LABS: INTERNATIONAL NORMAL RATI 3.1 UNITS (-); PROTIME (NOT ORD) 31.4 SEC (12.0-14.5)
[2017-03-24 09:00] LABS: BASOPHILS 0.2 %; BASOPHILS ABSOLUTE 0.02 10/3/uL (0.0-0.16); EOSINOPHILS 1.7 %; EOSINOPHILS ABSOLUTE 0.23 10/3/uL (0.0-0.53); HEMATOCRIT 22.5 % (40.0-51.0); HEMOGLOBIN 7.4 g/dL (13.6-17.8); IMMATURE GRANULOCYTES 0.4 %; IMMATURE GRANULOCYTES ABSOLUTE 0.05 10/3/uL (0.0-0.11); LYMPHOCYTES 13.2 %; LYMPHOCYTES ABSOLUTE 1.74 10/3/uL (0.67-4.30); MEAN CORPUS HGB CONC 32.9 g/dL (32.0-36.0); MEAN CORPUSCULAR HEMOGLOB 28.8 pg (26.0-34.0); MEAN CORPUSCULAR VOLUME 87.5 fL (80-100); MEAN PLATELET VOLUME 8.6 fL (9.2-13.0); MONOCYTES 9.1 %; NEUTROPHILS 75.4 %; NEUTROPHILS ABSOLUTE 9.91 10/3/uL (2.02-8.40); PLATELET COUNT 199 10/3/uL (150-400); RBC DISTRIBUTION WIDTH 14.9 % (12.0-16.0); RED CELL COUNT 2.57 10/6/uL (4.7-6.1); WHITE BLOOD CELLS 13.2 10/3/uL (4.5-10.5)
[2017-03-24 09:05] LABS: MANUAL DIFF NO %
[2017-03-24 09:07] LABS: INTERNATIONAL NORMAL RATI 3.1 UNITS (-); PROTIME (NOT ORD) 31.8 SEC (12.0-14.5)
[2017-03-24 09:12] LABS: ALBUMIN 2.2 G/DL (3.5-5.0); BUN (BLOOD UREA NITROGEN) 43 MG/DL (6-23); CALCIUM, SERUM 8.6 MG/DL (8.5-10.4); CHLORIDE, SERUM 102 MMOL/L (96-112); CO2 (CARBON DIOXIDE) 26 MMOL/L (24-34); CREATININE 2.93 MG/DL (0.70-1.30); GFR AFRICAN AMERICAN 27 ML/MIN (>=60); GFR NON AFRICAN AMERICAN 23 ML/MIN (>=60); GLUCOSE, SERUM 101 MG/DL (60-99); PHOSPHORUS, SERUM 4.7 MG/DL (2.5-4.5); POTASSIUM, SERUM 4.5 MMOL/L (3.5-5.3); SODIUM, SERUM 139 MMOL/L (135-148)
[2017-03-25 09:00] LABS: BASOPHILS 0.3 %; BASOPHILS ABSOLUTE 0.03 10/3/uL (0.0-0.16); EOSINOPHILS 3.7 %; IMMATURE GRANULOCYTES 0.2 %; IMMATURE GRANULOCYTES ABSOLUTE 0.02 10/3/uL (0.0-0.11); LYMPHOCYTES ABSOLUTE 1.94 10/3/uL (0.67-4.30); MANUAL DIFF NO %; MEAN CORPUS HGB CONC 33.3 g/dL (32.0-36.0); MEAN CORPUSCULAR VOLUME 87.1 fL (80-100); MEAN PLATELET VOLUME 8.2 fL (9.2-13.0); MONOCYTES 8.1 %; MONOCYTES ABSOLUTE 0.87 10/3/uL (0.21-1.20); NEUTROPHILS 69.7 %; NEUTROPHILS ABSOLUTE 7.54 10/3/uL (2.02-8.40); PLATELET COUNT 208 10/3/uL (150-400); RBC DISTRIBUTION WIDTH 14.5 % (12.0-16.0); RED CELL COUNT 2.41 10/6/uL (4.7-6.1); WHITE BLOOD CELLS 10.8 10/3/uL (4.5-10.5)
[2017-03-25 09:07] LABS: INTERNATIONAL NORMAL RATI 3.5 UNITS (-); PROTIME (NOT ORD) 34.8 SEC (12.0-14.5)
[2017-03-25 09:11] LABS: A/G RATIO 0.5 (0.7-1.9); ALBUMIN 2.1 G/DL (3.5-5.0); BUN (BLOOD UREA NITROGEN) 46 MG/DL (6-23); CALCIUM, SERUM 8.6 MG/DL (8.5-10.4); CHLORIDE, SERUM 102 MMOL/L (96-112); CO2 (CARBON DIOXIDE) 26 MMOL/L (24-34); CREATININE 2.95 MG/DL (0.70-1.30); GFR AFRICAN AMERICAN 27 ML/MIN (>=60); GFR NON AFRICAN AMERICAN 23 ML/MIN (>=60); POTASSIUM, SERUM 4.1 MMOL/L (3.5-5.3); SGOT(AST) 19 U/L (5-40); SGPT(ALT) 9 U/L (5-65); SODIUM, SERUM 139 MMOL/L (135-148); TOTAL BILIRUBIN 0.5 MG/DL (0-1.2); TOTAL PROTEIN 6.1 G/DL (6.0-8.5)
[2017-03-25 09:12] LABS: ALKALINE PHOSPHATASE 113 U/L (45-117); GLUCOSE, SERUM 153 MG/DL (60-99)
[2017-03-26 05:25] LABS: INTERNATIONAL NORMAL RATI 3.7 UNITS (-); PROTIME (NOT ORD) 36.6 SEC (12.0-14.5)
[2017-03-28 05:13] LABS: BASOPHILS 0.5 %; BASOPHILS ABSOLUTE 0.04 10/3/uL (0.0-0.16); EOSINOPHILS 4.4 %; EOSINOPHILS ABSOLUTE 0.36 10/3/uL (0.0-0.53); HEMATOCRIT 23.7 % (40.0-51.0); HEMOGLOBIN 7.6 g/dL (13.6-17.8); IMMATURE GRANULOCYTES 0.4 %; IMMATURE GRANULOCYTES ABSOLUTE 0.03 10/3/uL (0.0-0.11); LYMPHOCYTES 17.5 %; LYMPHOCYTES ABSOLUTE 1.43 10/3/uL (0.67-4.30); MEAN CORPUS HGB CONC 32.1 g/dL (32.0-36.0); MEAN CORPUSCULAR HEMOGLOB 27.8 pg (26.0-34.0); MEAN CORPUSCULAR VOLUME 86.8 fL (80-100); MEAN PLATELET VOLUME 8.5 fL (9.2-13.0); MONOCYTES 8.3 %; MONOCYTES ABSOLUTE 0.68 10/3/uL (0.21-1.20); NEUTROPHILS 68.9 %; NEUTROPHILS ABSOLUTE 5.64 10/3/uL (2.02-8.40); RBC DISTRIBUTION WIDTH 14.3 % (12.0-16.0); RED CELL COUNT 2.73 10/6/uL (4.7-6.1); WHITE BLOOD CELLS 8.2 10/3/uL (4.5-10.5)
[2017-03-28 05:14] LABS: MANUAL DIFF NO %; PLATELET COUNT 296 10/3/uL (150-400)
[2017-03-28 05:16] LABS: INTERNATIONAL NORMAL RATI 4.1 UNITS (-); PROTIME (NOT ORD) 39.6 SEC (12.0-14.5)
[2017-03-28 05:23] LABS: CALCIUM, SERUM 8.7 MG/DL (8.5-10.4); CHLORIDE, SERUM 103 MMOL/L (96-112); CO2 (CARBON DIOXIDE) 28 MMOL/L (24-34); GFR AFRICAN AMERICAN 37 ML/MIN (>=60); GFR NON AFRICAN AMERICAN 32 ML/MIN (>=60); GLUCOSE, SERUM 158 MG/DL (60-99); POTASSIUM, SERUM 4.2 MMOL/L (3.5-5.3); SODIUM, SERUM 140 MMOL/L (135-148)
[2017-03-28 05:27] LABS: BUN (BLOOD UREA NITROGEN) 37 MG/DL (6-23); CREATININE 2.28 MG/DL (0.70-1.30)
[2017-03-29 07:28] LABS: INTERNATIONAL NORMAL RATI 3.4 UNITS (-); PROTIME (NOT ORD) 33.9 SEC (12.0-14.5)
[2017-03-30 06:12] LABS: BASOPHILS 0.3 %; BASOPHILS ABSOLUTE 0.03 10/3/uL (0.0-0.16); EOSINOPHILS 3.1 %; EOSINOPHILS ABSOLUTE 0.32 10/3/uL (0.0-0.53); HEMOGLOBIN 7.8 g/dL (13.6-17.8); IMMATURE GRANULOCYTES 0.6 %; IMMATURE GRANULOCYTES ABSOLUTE 0.06 10/3/uL (0.0-0.11); LYMPHOCYTES 18.7 %; MEAN CORPUS HGB CONC 32.5 g/dL (32.0-36.0); MEAN CORPUSCULAR HEMOGLOB 27.8 pg (26.0-34.0); MEAN CORPUSCULAR VOLUME 85.4 fL (80-100); MEAN PLATELET VOLUME 8.5 fL (9.2-13.0); MONOCYTES 6.8 %; MONOCYTES ABSOLUTE 0.69 10/3/uL (0.21-1.20); NEUTROPHILS 70.5 %; NEUTROPHILS ABSOLUTE 7.17 10/3/uL (2.02-8.40); PLATELET COUNT 353 10/3/uL (150-400); RBC DISTRIBUTION WIDTH 14.2 % (12.0-16.0); RED CELL COUNT 2.81 10/6/uL (4.7-6.1); WHITE BLOOD CELLS 10.2 10/3/uL (4.5-10.5)
[2017-03-30 06:13] LABS: A/G RATIO 0.6 (0.7-1.9); ALBUMIN 2.4 G/DL (3.5-5.0); ALKALINE PHOSPHATASE 105 U/L (45-117); CALCIUM, SERUM 8.8 MG/DL (8.5-10.4); CHLORIDE, SERUM 104 MMOL/L (96-112); CO2 (CARBON DIOXIDE) 30 MMOL/L (24-34); CREATININE 2.03 MG/DL (0.70-1.30); GFR AFRICAN AMERICAN 42 ML/MIN (>=60); GFR NON AFRICAN AMERICAN 37 ML/MIN (>=60); GLUCOSE, SERUM 155 MG/DL (60-99); POTASSIUM, SERUM 3.7 MMOL/L (3.5-5.3); SGOT(AST) 12 U/L (5-40); SGPT(ALT) 12 U/L (5-65); SODIUM, SERUM 143 MMOL/L (135-148); TOTAL BILIRUBIN 0.6 MG/DL (0-1.2); TOTAL PROTEIN 6.4 G/DL (6.0-8.5)
[2017-03-30 06:14] LABS: BUN (BLOOD UREA NITROGEN) 29 MG/DL (6-23)
[2017-03-30 06:16] LABS: INTERNATIONAL NORMAL RATI 2.5 UNITS (-)
[2017-03-30 06:17] LABS: MANUAL DIFF NO %
[2017-03-30 06:18] LABS: PROTIME (NOT ORD) 26.7 SEC (12.0-14.5)
[2017-03-31 05:34] LABS: INTERNATIONAL NORMAL RATI 2.7 UNITS (-); PROTIME (NOT ORD) 28.2 SEC (12.0-14.5)
[2017-04-01 04:06] LABS: INTERNATIONAL NORMAL RATI 2.6 UNITS (-); PROTIME (NOT ORD) 27.2 SEC (12.0-14.5)
[2017-04-02 04:43] LABS: INTERNATIONAL NORMAL RATI 2.5 UNITS (-)
[2017-04-03 05:04] LABS: INTERNATIONAL NORMAL RATI 2.9 UNITS (-); PROTIME (NOT ORD) 29.8 SEC (12.0-14.5)
[2017-04-04 04:41] LABS: INTERNATIONAL NORMAL RATI 2.2 UNITS (-)
[2017-04-04 04:43] LABS: PROTIME (NOT ORD) 24.3 SEC (12.0-14.5)
[2017-04-05 04:45] LABS: INTERNATIONAL NORMAL RATI 1.8 UNITS (-); PROTIME (NOT ORD) 21.1 SEC (12.0-14.5)
[2017-04-06 05:49] LABS: INTERNATIONAL NORMAL RATI 1.5 UNITS (-); PROTIME (NOT ORD) 18.2 SEC (12.0-14.5)
[2017-04-07 05:29] LABS: INTERNATIONAL NORMAL RATI 1.5 UNITS (-); PROTIME (NOT ORD) 18.1 SEC (12.0-14.5)
== END 2017-04-07 21:41 | DRG 853 ==
LOC: 1SO 15:52 → IMCU 02-14 22:10 → 6NO 02-19 00:25 → SDC/OF 02-20 17:22 → CVICU 02-20 17:48 → 2SO 02-27 18:21 → SDC/OF 03-09 08:50 → 2SO 03-09 10:12 → SDC/OF 03-10 14:46 → CVICU 03-10 17:08 → 5NO 03-14 17:21 → 7NO 03-19 11:35
PROVIDERS: Anesthesiology; Hospitalist; Internal Medicine; Internal Medicine Cardiovascular Disease; Internal Medicine Critical Care Medicine; Internal Medicine Nephrology; Internal Medicine Pulmonary Disease; Nurse Practitioner; Nurse Practitioner Family; Podiatrist Foot & Ankle Surgery; Registered Nurse; Surgery; Thoracic Surgery (Cardiothoracic Vascular Surgery)
PROC: B5131ZA Fluoroscopy of Right Jugular Veins using Low Osmolar Contrast, Guidance (ICD-10-PCS; 2017-02-15)
PROC: 0BH17EZ Insertion of Endotracheal Airway into Trachea, Via Natural or Artificial Opening (ICD-10-PCS; 2017-02-20)
PROC: 5A1945Z Respiratory Ventilation, 24-96 Consecutive Hours (ICD-10-PCS; 2017-02-20)
PROC: 5A2204Z Restoration of Cardiac Rhythm, Single (ICD-10-PCS; 2017-02-20)
PROC: 06HM33Z Insertion of Infusion Device into Right Femoral Vein, Percutaneous Approach (ICD-10-PCS; principal; 2017-02-21)
PROC: 0Y6J0Z3 Detachment at Left Lower Leg, Low, Open Approach (ICD-10-PCS; 2017-02-23)
PROC: B51B1ZA Fluoroscopy of Right Lower Extremity Veins using Low Osmolar Contrast, Guidance (ICD-10-PCS; 2017-02-23)
PROC: 5A1D60Z (ICD-10-PCS; 2017-02-28)
PROC: 4A023N7 Measurement of Cardiac Sampling and Pressure, Left Heart, Percutaneous Approach (ICD-10-PCS; 2017-03-05)
PROC: B2151ZZ Fluoroscopy of Left Heart using Low Osmolar Contrast (ICD-10-PCS; 2017-03-05)
PROC: B2111ZZ Fluoroscopy of Multiple Coronary Arteries using Low Osmolar Contrast (ICD-10-PCS; 2017-03-05)
PROC: 0JPV0XZ Removal of Tunneled Vascular Access Device from Upper Extremity Subcutaneous Tissue and Fascia, Open Approach (ICD-10-PCS; 2017-03-06)
PROC: 05HM33Z Insertion of Infusion Device into Right Internal Jugular Vein, Percutaneous Approach (ICD-10-PCS; 2017-03-06)
PROC: 5A1D60Z (ICD-10-PCS; 2017-03-06)
PROC: 0DJ08ZZ Inspection of Upper Intestinal Tract, Via Natural or Artificial Opening Endoscopic (ICD-10-PCS; 2017-03-08)
PROC: 06BP0ZZ Excision of Right Saphenous Vein, Open Approach (ICD-10-PCS; 2017-03-10)
PROC: 02BN0ZZ Excision of Pericardium, Open Approach (ICD-10-PCS; 2017-03-10)
PROC: 0PH000Z Insertion of Rigid Plate Internal Fixation Device into Sternum, Open Approach (ICD-10-PCS; 2017-03-10)
PROC: 5A1221Z Performance of Cardiac Output, Continuous (ICD-10-PCS; 2017-03-10)
PROC: B246ZZ4 Ultrasonography of Right and Left Heart, Transesophageal (ICD-10-PCS; 2017-03-10)
PROC: 30233R1 Transfusion of Nonautologous Platelets into Peripheral Vein, Percutaneous Approach (ICD-10-PCS; 2017-03-10)
PROC: 30233N1 Transfusion of Nonautologous Red Blood Cells into Peripheral Vein, Percutaneous Approach (ICD-10-PCS; 2017-03-10)
PROC: 0210099 Bypass Coronary Artery, One Artery from Left Internal Mammary with Autologous Venous Tissue, Open Approach (ICD-10-PCS; 2017-03-10 13:30)
PROC: 021209W Bypass Coronary Artery, Three Arteries from Aorta with Autologous Venous Tissue, Open Approach (ICD-10-PCS; 2017-03-10 13:30)
DX: A41.9 Sepsis, unspecified organism (principal); I50.23 Acute on chronic systolic (congestive) heart failure; I21.4 Non-ST elevation (NSTEMI) myocardial infarction; R57.0 Cardiogenic shock; J96.00 Acute respiratory failure, unspecified whether with hypoxia or hypercapnia; E43 Unspecified severe protein-calorie malnutrition; G93.41 Metabolic encephalopathy; J18.9 Pneumonia, unspecified organism; I46.2 Cardiac arrest due to underlying cardiac condition; N17.9 Acute kidney failure, unspecified; K92.0 Hematemesis; L03.116 Cellulitis of left lower limb; M86.172 Other acute osteomyelitis, left ankle and foot; M86.9 Osteomyelitis, unspecified; I31.8 Other specified diseases of pericardium; E11.52 Type 2 diabetes mellitus with diabetic peripheral angiopathy with gangrene; I24.8 Other forms of acute ischemic heart disease; I48.92 Unspecified atrial flutter; Z68.42 Body mass index [BMI] 45.0-49.9, adult; D63.8 Anemia in other chronic diseases classified elsewhere; E11.65 Type 2 diabetes mellitus with hyperglycemia; I73.9 Peripheral vascular disease, unspecified; I25.5 Ischemic cardiomyopathy; E66.9 Obesity, unspecified; E78.5 Hyperlipidemia, unspecified; E11.69 Type 2 diabetes mellitus with other specified complication; I77.89 Other specified disorders of arteries and arterioles; E11.22 Type 2 diabetes mellitus with diabetic chronic kidney disease; F41.9 Anxiety disorder, unspecified; K21.0 Gastro-esophageal reflux disease with esophagitis; R04.0 Epistaxis; L89.92 Pressure ulcer of unspecified site, stage 2; F43.21 Adjustment disorder with depressed mood; K44.9 Diaphragmatic hernia without obstruction or gangrene; E66.01 Morbid (severe) obesity due to excess calories; Z83.3 Family history of diabetes mellitus; Z79.4 Long term (current) use of insulin; Z89.422 Acquired absence of other left toe(s); Z87.891 Personal history of nicotine dependence; Z53.20 Procedure and treatment not carried out because of patient's decision for unspecified reasons
CPT/HCPCS: 31720; 36415; 36558; 36600; 71010; 71020; 73630-LT; 74000; 76775; 77001; 80048; 80053; 80061; 80069; 80074; 80076; 80202; 81001; 82009; 82043; 82248; 82272; 82330; 82533; 82570; 82803; 82805; 82947; 82962; 83036; 83605; 83735; 83880; 84100; 84132; 84145; 84295; 84300; 84439; 84443; 84484; 85007; 85014; 85018; 85025; 85027; 85347; 85384; 85610; 85652; 85730; 86140; 86850; 86900; 86901; 86920; 87015; 87040; 87070; 87075; 87077; 87086; 87102; 87116; 87186; 87205; 87389; 87641; 88305; 88307; 88311; 92950; 93005; 93312; 93320; 93325; 93458; 93923; 93975; 94002; 94003; 94640; 94660; 94770; 97110-GO; 97110-GP; 97162-GP; 97164-GP; 97167-GO; 97168-GO; 97530-GO; 97530-GP; 97535-GO; 97542-GN; 99152; A9270-GY; C1713; C1750; C1751; C1752; C1769; C1887; C1894; C8924; C8929; G0257; G0365; G8978-CL-GP; G8978-CM-GP; G8979-CJ-GP; G8979-CK-GP; G8987-CK-GO; G8988-CJ-GO; J0282; J0330; J0610; J0690; J1170; J1644; J1720; J1940; J1956; J2150; J2250; J2270; J2370; J2405; J2440; J2543; J2710; J2720; J2765; J2930; J2997; J3010; J3370; J3475; J3480; P9016; P9035; P9045; P9047; Q9957; Q9966; Q9967

== ENCOUNTER 2017-05-02 22:55 | Emergency (ER) | payer OTHER ==
[2017-05-02 21:46] LABS: BASOPHILS 0.5 %; BASOPHILS ABSOLUTE 0.06 10/3/uL (0.0-0.16); EOSINOPHILS 1.1 %; EOSINOPHILS ABSOLUTE 0.13 10/3/uL (0.0-0.53); ER CBC TAT 0 Hrs 11 Mins; HEMOGLOBIN 7.1 g/dL (13.6-17.8); IMMATURE GRANULOCYTES 0.3 %; IMMATURE GRANULOCYTES ABSOLUTE 0.03 10/3/uL (0.0-0.11); LYMPHOCYTES 14.6 %; LYMPHOCYTES ABSOLUTE 1.71 10/3/uL (0.67-4.30); MEAN CORPUS HGB CONC 32.3 g/dL (32.0-36.0); MEAN CORPUSCULAR HEMOGLOB 26.9 pg (26.0-34.0); MEAN CORPUSCULAR VOLUME 83.3 fL (80-100); MONOCYTES 7.4 %; MONOCYTES ABSOLUTE 0.87 10/3/uL (0.21-1.20); NEUTROPHILS 76.1 %; NEUTROPHILS ABSOLUTE 8.88 10/3/uL (2.02-8.40); PLATELET COUNT 313 10/3/uL (150-400); RBC DISTRIBUTION WIDTH 15.6 % (12.0-16.0); RED CELL COUNT 2.64 10/6/uL (4.7-6.1); WHITE BLOOD CELLS 11.7 10/3/uL (4.5-10.5)
[2017-05-02 21:50] LABS: MANUAL DIFF NO %
[2017-05-02 22:00] LABS: CALCIUM, SERUM 8.9 MG/DL (8.5-10.4); CHLORIDE, SERUM 101 MMOL/L (96-112); CO2 (CARBON DIOXIDE) 27 MMOL/L (24-34); CREATININE 2.25 MG/DL (0.70-1.30); GFR AFRICAN AMERICAN 37 ML/MIN (>=60); GFR NON AFRICAN AMERICAN 32 ML/MIN (>=60); GLUCOSE, SERUM 126 MG/DL (60-99); POTASSIUM, SERUM 3.6 MMOL/L (3.5-5.3); SGOT(AST) 22 U/L (5-40); SGPT(ALT) 24 U/L (5-65); SODIUM, SERUM 137 MMOL/L (135-148); TOTAL BILIRUBIN 0.6 MG/DL (0-1.2); TOTAL PROTEIN 7.5 G/DL (6.0-8.5)
[2017-05-02 22:03] LABS: A/G RATIO 0.6 (0.7-1.9); ALBUMIN 2.9 G/DL (3.5-5.0); ALKALINE PHOSPHATASE 158 U/L (45-117); BUN (BLOOD UREA NITROGEN) 33 MG/DL (6-23); GLOBULIN 4.6 G/DL (2.5-4.1)
== END 2017-05-02 23:46 | disposition home or self-care (01) ==
LOC: ER 22:55
PROVIDERS: Emergency Medicine
DX: T87.44 Infection of amputation stump, left lower extremity (principal); D64.9 Anemia, unspecified; I10 Essential (primary) hypertension; E11.9 Type 2 diabetes mellitus without complications; Z95.1 Presence of aortocoronary bypass graft
CPT/HCPCS: 80053; 81001; 83605; 85025; 87040; 96372; 99283; J0690